=== PATIENT | female | born 1960 | race Caucasian/White ===

== ENCOUNTER 2017-01-22 12:42 | Inpatient (IN) ==
[2017-01-22] MEDS ORDERED: 0.9 % Sodium Chloride 1,000 ML IVC ONE (14:39)
[2017-01-22] MEDS ORDERED: Ondansetron 4 MG/2 ML VIAL IVP ONE ×2 (14:39→21:05)
--- NOTE | 2017-01-22 14:40 | Emergency Department Note ---
Disposition Clinical Impression: NSTEMI (non-ST elevated myocardial infarction), Sinus bradycardia Disposition: Admitted As Inpatient Condition: Good Referrals: NO,PCP [Primary Care Provider] - Forms: Work/School Release, ED Satisfaction Letter Weakness HPI - General Chief complaint: ED General Medical Stated complaint: Vomiting/hypertension/AMS Time Seen by Provider: 01/22/17 14:20 Source: patient Limitations: no limitations Nursing Notes Reviewed: Yes Vital Signs Reviewed: Yes - History of Present Illness Pt Subjective Complaint: generalized weakness/fatigue Onset (ago): day(s) (1) Duration: constant, gradually worsening Location: generalized Migration: none Pain Severity: none Pain Scale: 0 Improves with: none Worsens with: none Associated symptoms: Reports: nausea/vomiting. Denies: chest pain, confusion, dark stools, diaphoresis, fever/chills, headaches, loss of appetite, rash, shortness of breath, syncope - Related Data Home Medications Medication Instructions Recorded Confirmed No Known Home Drugs 01/22/17 01/22/17 Allergies Allergy/AdvReac Type Severity Reaction Status Date / Time No Known Allergies Allergy Verified 09/26/16 09:17 All systems ED: reviewed and negative except as stated. Constitutional: Reports: weakness Gastrointestinal: Reports: nausea Past Medical History - Past Medical History Source: patient, old records reviewed, obtained from family, nursing notes reviewed Medical history: Reports: hypertension Psychiatric history: Reports: no psych history STORE LEAD history: Reports: no STORE LEAD history - Social History Smoking Status: Current every day smoker Smokeless Tobacco Status: No Alcohol use: Reports: none Drug use: Reports: none Physical Exam - General Limitations: no limitations General appearance: alert - Head Head exam: atraumatic, normocephalic, normal inspection - Eye Eye exam: Present: normal appearance, PERRL, EOMI - Expanded Eye Exam Pupils: Left: reactive - ENT ENT exam: normal exam, normal oropharynx, mucous membranes moist - Expanded ENT Exam External ear exam: Present: normal external inspection Mouth exam: Present: normal external inspection Teeth exam: Present: normal inspection Throat exam: Present: normal inspection - Neck Neck exam: Present: normal inspection, full ROM, trachea midline - Chest Chest inspection: Present: normal inspection, symmetric chest wall rise - Respiratory Respiratory exam: Present: normal lung sounds bilaterally - Cardiovascular Cardiovascular exam: Present: bradycardia - Abdominal Exam Abdominal exam: Present: soft, Non-Tender. Absent: tenderness, distention, guarding, rebound, rigidity - Extremities Exam Extremities exam: Present: normal inspection, full ROM. Absent: tenderness, pedal edema - Expanded Upper Extremity Exam Shoulder exam: Present: normal inspection, full ROM Arm exam: Present: normal inspection, full ROM Elbow exam: Present: normal inspection, full ROM Forearm/Wrist exam: Present: normal inspection, full ROM Hand exam: Present: normal inspection, full ROM Vascular exam: Normal: capillary refill, radial pulse - Expanded Lower Extremity Exam Hip/Pelvis exam: Present: normal inspection, full ROM Upper leg exam: Present: normal inspection, full ROM Knee exam: Present: normal inspection, full ROM Lower leg exam: Present: normal inspection, full ROM Ankle exam: Present: normal inspection, full ROM Foot/toe exam: Present: normal inspection, full ROM Neurovascular/Tendon exam: Absent: motor deficit, sensory deficit, tendon deficit - Back Exam Back exam: Present: normal inspection, full ROM. Absent: tenderness - Neurological Exam Neurological exam: Present: alert, oriented X3 - Expanded Neurological Exam Patient oriented to: Present: person, place, time Coma Scale Eye Opening: Spontaneous Coma Scale Motor Response: Obeys Commands Coma Scale Verbal Response: Oriented Coma Scale Total: 15 - Psychiatric Psychiatric exam: Present: normal affect, normal mood - Skin Skin exam: Present: warm, dry, intact, normal color Course - Reevaluation(s) Reevaluation #1: patient hasn't had any chest pain, mild headache no other complaints, alert laughing and making jokes with staff and family Time: 15:45 - Consultations Consultation #1: dr. mclean consulted aware of troponin and bradycardia, admit to hospitalist ASA and heparin, consult cardiology no clinical laboratory assistant at this time Time: 15:40 Vital Signs Temperature 98.1 F 01/22/17 12:54 Pulse Rate 50 01/22/17 12:54 Respiratory Rate 18 01/22/17 12:54 Blood Pressure 145/74 01/22/17 12:54 O2 Sat by Pulse Oximetry 95 01/22/17 12:54 Temperature 98.1 F 01/22/17 12:54 Pulse Rate 44 01/22/17 15:24 Respiratory Rate 18 01/22/17 15:24 Blood Pressure 118/76 01/22/17 15:24 O2 Sat by Pulse Oximetry 100 01/22/17 15:24 Oxygen Delivery Oxygen Delivery Room Air Weakness - Differential Diagnosis Differential Diagnosis: Likely: acute myocardial infarction, hypoglycemia, rhabdomyolysis, sepsis/infection, thyroid/endocrine disorder - Medical Records Medical records reviewed: Yes I reviewed the patient's medical records. - Lab Data Lab results reviewed: Yes I reviewed the patient's lab results. Result diagrams: 01/22/17 14:51 01/22/17 14:51 Lab Results 01/22/17 01/22/17 01/22/17 Range/Units 14:51 14:51 14:51 WBC 10.9 (4.3-11.1) K/mcL RBC 4.67 (3.82-4.97) M/mcL Hgb 13.7 (11.5-15.4) g/dL Hct 42.1 (35.3-44.9) % MCV 90.1 (83.0-100.0) fL MCH 29.3 (28.0-33.3) pg MCHC 32.5 (31.6-35.5) g/dL RDW 13.9 (11.5-14.5) % Plt Count 282 (140-400) K/mcL MPV 10.0 (9.4-12.4) fL Immature Gran % 0.4 (0-4) % Seg Neutrophils % 86.6 % Lymphocytes % 9.1 % Monocytes % 3.7 % Eosinophils % 0.0 % Basophils % 0.2 % Neutrophils # 9.4 H (1.6-8.9) K/mcL Lymphocytes # 1.0 (0.6-4.6) K/mcL Monocytes # 0.4 (0.0-1.3) K/mcL Eosinophils # 0.0 (0.0-0.6) K/mcL Basophils # 0.0 (0.0-0.2) K/mcL PT 11.8 (9.4-12.1) Seconds INR 1.1 APTT 30.9 (26.0-36.0) Seconds Sodium 138 (136-145) mEq/L Potassium 3.8 (3.5-4.5) mEq/L Chloride 103 (98-109) mEq/L Carbon Dioxide 23 (19-29) mEq/L BUN 13 (7-20) mg/dL Creatinine 1.06 (0.57-1.11) mg/dL Est GFR ( Amer) > 60 (> 60) Est GFR (Non-Af Amer) 54 L (> 60) BUN/Creatinine Ratio 12 (6-26) Glucose 135 H (70-99) mg/dL Calculated Osmolality 288 (280-300) Lactic Acid (0.5-2.2) mmol/L Calcium 9.8 (8.6-10.8) mg/dL Total Bilirubin 0.4 (0.2-1.2) mg/dL Direct Bilirubin 0.2 (0.0-0.5) mg/dL Indirect Bilirubin 0.2 (0.0-1.2) mg/dL AST 57 H (5-34) Units/L ALT 24 (0-55) Units/L Alkaline Phosphatase 126 (38-126) Units/L Troponin I (0-0.03) ng/mL Serum Total Protein 7.8 (6.0-8.3) g/dL Albumin 3.7 (3.5-5.0) g/dL Globulin 4.1 H (2.4-3.5) g/dL Albumin/Globulin Ratio 0.9 L (1.1-2.2) Amylase 30 (25-125) Units/L Lipase 7 L (8-78) Units/L 01/22/17 01/22/17 Range/Units 14:51 14:51 WBC (4.3-11.1) K/mcL RBC (3.82-4.97) M/mcL Hgb (11.5-15.4) g/dL Hct (35.3-44.9) % MCV (83.0-100.0) fL MCH (28.0-33.3) pg MCHC (31.6-35.5) g/dL RDW (11.5-14.5) % Plt Count (140-400) K/mcL MPV (9.4-12.4) fL Immature Gran % (0-4) % Seg Neutrophils % % Lymphocytes % % Monocytes % % Eosinophils % % Basophils % % Neutrophils # (1.6-8.9) K/mcL Lymphocytes # (0.6-4.6) K/mcL Monocytes # (0.0-1.3) K/mcL Eosinophils # (0.0-0.6) K/mcL Basophils # (0.0-0.2) K/mcL PT (9.4-12.1) Seconds INR APTT (26.0-36.0) Seconds Sodium (136-145) mEq/L Potassium (3.5-4.5) mEq/L Chloride (98-109) mEq/L Carbon Dioxide (19-29) mEq/L BUN (7-20) mg/dL Creatinine (0.57-1.11) mg/dL Est GFR ( Amer) (> 60) Est GFR (Non-Af Amer) (> 60) BUN/Creatinine Ratio (6-26) Glucose (70-99) mg/dL Calculated Osmolality (280-300) Lactic Acid 1.7 (0.5-2.2) mmol/L Calcium (8.6-10.8) mg/dL Total Bilirubin (0.2-1.2) mg/dL Direct Bilirubin (0.0-0.5) mg/dL Indirect Bilirubin (0.0-1.2) mg/dL AST (5-34) Units/L ALT (0-55) Units/L Alkaline Phosphatase (38-126) Units/L Troponin I 2.28 H* (0-0.03) ng/mL Serum Total Protein (6.0-8.3) g/dL Albumin (3.5-5.0) g/dL Globulin (2.4-3.5) g/dL Albumin/Globulin Ratio (1.1-2.2) Amylase (25-125) Units/L Lipase (8-78) Units/L - Radiology Data Radiology results reviewed: Yes I reviewed the patient's radiology results. - EKG Data EKG attestation: Yes I reviewed and interpreted this EKG. EKG shows normal: sinus rhythm Rate: bradycardia (45) QTc: prolonged Interpretation: nonspecific ST-T wave changes Critical Care Time Critical Care Time: Yes Total Critical Care Time: 40 Attestation: Critical care performed: Time is exclusive of separately billable procedures. Time includes: direct patient care, patient reassessment, coordination of patient care, interpretation of data (laboratory data, radiology data, and respiratory data), review of patient's medical records, medical consultation and documentation of patient care. Procedures included in critical care time: Procedures excluded from critical care time:
[2017-01-22 15:05] LABS: Basophils % 0.2 %; Hematocrit 42.1 % (35.3-44.9); Hemoglobin 13.7 g/dL (11.5-15.4); Immature Granulocytes % 0.4 % (0-4); Lymphocytes % 9.1 %; Mean Corpuscular HGB Conc 32.5 g/dL (31.6-35.5); Mean Corpuscular Hemoglobin 29.3 pg (28.0-33.3); Mean Corpuscular Volume 90.1 fL (83.0-100.0); Monocytes # 0.4 K/mcL (0.0-1.3); Monocytes % 3.7 %; Neutrophils # 9.4 K/mcL (1.6-8.9); Platelet Count 282 K/mcL (140-400); Red Blood Count 4.67 M/mcL (3.82-4.97); Red Cell Distribution Width 13.9 % (11.5-14.5); Segmented Neutrophils % 86.6 %
[2017-01-22 15:13] LABS: INR 1.1; Prothrombin Time 11.8 Seconds (9.4-12.1)
[2017-01-22 15:15] LABS: Activated Partial Thrombo Time 30.9 Seconds (26.0-36.0)
[2017-01-22 15:18] LABS: Alanine Aminotransferase 24 Units/L (0-55); Albumin 3.7 g/dL (3.5-5.0); Albumin/Globulin Ratio 0.9 (1.1-2.2); Alkaline Phosphatase 126 Units/L (38-126); Amylase 30 Units/L (25-125); Aspartate Amino Transferase 57 Units/L (5-34); BUN/Creatinine Ratio 12 (6-26); Bilirubin,Direct 0.2 mg/dL (0.0-0.5); Bilirubin,Indirect 0.2 mg/dL (0.0-1.2); Bilirubin,Total 0.4 mg/dL (0.2-1.2); Blood Urea Nitrogen 13 mg/dL (7-20); Calcium 9.8 mg/dL (8.6-10.8); Carbon Dioxide 23 mEq/L (19-29); Chloride 103 mEq/L (98-109); Globulin 4.1 g/dL (2.4-3.5); Glucose 135 mg/dL (70-99); Lipase 7 Units/L (8-78); Osmolality,Calculated 288 (280-300); Potassium 3.8 mEq/L (3.5-4.5); Sodium 138 mEq/L (136-145); Total Protein 7.8 g/dL (6.0-8.3); eGFR For African Americans > 60 (> 60); eGFR For Non-African Americans 54 (> 60)
[2017-01-22] MEDS ORDERED: Aspirin 81 MG TAB.CHEW PO ONE (15:27)
[2017-01-22] MEDS ORDERED: *HR* Heparin 5,000 UNIT/ML VIAL IVP PRN ×2 (15:33)
[2017-01-22] MEDS ORDERED: *HR* Heparin 5,000 UNIT/ML VIAL IVP ONE (15:33)
[2017-01-22] MEDS ORDERED: Heparin 25,000 UNIT/500 ML D5W 25,000 UNIT/500 ML MLS IVC SCH (15:45)
[2017-01-22] MEDS ORDERED: Naloxone 0.4 MG/ML INJ IVP PRN (17:12)
[2017-01-22] MEDS ORDERED: Acetaminophen 325 MG TABLET PO PRN (17:12)
--- NOTE | 2017-01-22 18:33 | Internal Med History&Physical ---
Date of Encounter: 01/22/17 Time of Encounter: 18:29 Assessment and Plan (1) NSTEMI (non-ST elevated myocardial infarction) Current visit: Yes Status: Acute Patient presented with complaints of nausea, vomiting, fatigue and headache. Troponin elevated to 2.28. Patient was bradycardic with HR 40s-50s. EKG did not show ischemic changes. Cardiology/Dr. Hooker consulted. Heparin drip aspirin 325mg PO given, continue with 81mg daily serial troponins continuous court monitor echocardiogram ordered NPO after midnight for likely LHC tomorrow. (2) Sinus bradycardia Current visit: Yes Status: Acute Patient with HR in the 42-50s on presentation, symptoms of nausea, vomiting, fatigue, occasional lightheadedness. On my assessment heart rate improved to low 60s. Cardiology (Dr. Hooker) consulted. Continuous court monitor serial troponins. (3) Hypertension Current visit: Yes Status: Acute Patient's daughter reports patient not compliant with taking hypertension medications at home, and reports her blood pressure can run as high as 200/100. Patients BP running 130s-140s today. Hydralazine 10g IVP PRN for SBP > 160 or DBP > 100. Qualifiers: Hypertension type: essential hypertension Qualified Code(s): I10 - Essential (primary) hypertension (4) Smoker Current visit: Yes Status: Acute Patient smokes 2PPD. Encouraged her to consider quitting. Smoking cessation education ordered. Nicotine patch ordered. (5) DVT prophylaxis Current visit: Yes Status: Acute anti-embolic stockings. Patient on heparin drip for NSTEMI, additional pharmacologic prophylaxis contraindicated. Internal Medicine - H&P: HPI Chief complaint: nausea, vomiting, fatigue Admitted From: Emergency Dept Plans for Post Hospital Care: Home History of present illness: Ms. Lara is a 56 year old female with hypertension, presented to the emergency department today with nausea vomiting and fatigue. She reports that nausea and vomiting started last night around midnight, she is noticed significant fatigue , and mild headache as well. She denies any chest pain, palpitations, shortness of breath, but reports some lightheadedness. She reports chills, denies any sweats, fever, diarrhea. Evaluation in the emergency department revealed a troponin of 2.28. EKG showed no ischemic changes. Patient was also bradycardic with heart rate in the 40s to 50s. Dr. Hooker was consult dated the patient was initiated on heparin drip. On exam, patient alert and oriented , in no acute distress. Continues to deny any active chest pain. Lungs are clear bilaterally to auscultation heart has regular rhythm and rate is 60s. Past Med Surg Social Fam HX - Past Medical History Medical history: hypertension Psychiatric history: no psych history - Past Surgical History Surgical History: other (gynecologic surgery) - Social History Smoking Status: Current every day smoker (80 pack year history) Packs per day: 2 Smokeless Tobacco Status: No Alcohol use: none Drug use: none Internal Medicine - H&P: Meds No Known Home Drugs 01/22/17 [History] Allergies No Known Allergies Allergy (Verified 09/26/16 09:17) All Systems PM: A 10-system review of systems was performed and is negative for pertinent findings except as documented above in the HPI. - Constitutional Constitutional: chills, fatigue, no fever(s), no night sweats - EENT Eyes: change in vision, no discharge, no pain, no photophobia Ears: no ear discharge, no ear pain, no tinnitus Nose, mouth and throat: no dysphagia, no nasal discharge, no neck pain, no sore throat - Cardiovascular Cardiovascular ROS IM: lightheadedness, no chest pain, no diaphoresis, no dyspnea, no palpitations, no syncope - Respiratory Respiratory: no cough, no dyspnea, no wheezing, no excessive phlegm production - Gastrointestinal Gastrointestinal: nausea, vomiting, no abdominal pain, no diarrhea, no hematemesis, no hematochezia, no melena - Genitourinary Genitourinary: no change in urinary stream, no dysuria, no flank pain, no hematuria - Musculoskeletal Musculoskeletal ROS IM: no numbness, no tingling - Integumentary Integumentary IM: no rash, no unusual bruising - Neurological Neurological ROS: no confusion, no convulsions, no focal weakness, no numbness, no tingling, no tremor(s) - Hematologic/Lymphatic Hematologic/Lymphatic: no easy bruising - Constitutional Vitals: Temp Pulse Resp BP Pulse Ox 98.4 F 65 18 145/88 90 01/22/17 17:19 01/22/17 17:19 01/22/17 17:19 01/22/17 17:19 01/22/17 17:39 General appearance: Present: A&O X 3, pleasant, no acute distress, obese - Head Head exam: Present: atraumatic, normocephalic - Eye Eye exam: Present: PERRL, conjuntiva pink, sclera anicteric Pupils: Present: PERRL - Neck Neck exam general surgery: Present: supple, trachea midline. Absent: lymphadenopathy - Respiratory Respiratory exam: Present: CTAB. Absent: accessory muscle use, rales, rhonchi, wheezes - Cardiovascular Cardiovascular exam: Present: RRR, +S1, +S2. Absent: diastolic murmur, gallop, rubs, systolic murmur - GI/Abdominal GI/Abdominal exam: Present: normal bowel sounds, soft, no peritoneal signs. Absent: distended, tenderness - Extremities Exam Extremities exam: Present: warm, radial pulses palpable and symetrical. Absent : calf tenderness, cyanotic, pedal edema - Neurological Exam Neurological exam: Present: CN II-XII intact, oriented X3, no focal deficits. Absent: facial droop, speech deficit - Skin Skin exam: Present: dry, intact Internal Med - H&P Results - Labs CBC & Chem 7: 01/22/17 14:51 01/22/17 14:51 Labs: All Lab Results (24 Hours) 01/22/17 01/22/17 01/22/17 Range/Units 14:51 14:51 14:51 WBC 10.9 (4.3-11.1) K/mcL RBC 4.67 (3.82-4.97) M/mcL Hgb 13.7 (11.5-15.4) g/dL Hct 42.1 (35.3-44.9) % MCV 90.1 (83.0-100.0) fL MCH 29.3 (28.0-33.3) pg MCHC 32.5 (31.6-35.5) g/dL RDW 13.9 (11.5-14.5) % Plt Count 282 (140-400) K/mcL MPV 10.0 (9.4-12.4) fL Immature Gran % 0.4 (0-4) % Seg Neutrophils % 86.6 % Lymphocytes % 9.1 % Monocytes % 3.7 % Eosinophils % 0.0 % Basophils % 0.2 % Neutrophils # 9.4 H (1.6-8.9) K/mcL Lymphocytes # 1.0 (0.6-4.6) K/mcL Monocytes # 0.4 (0.0-1.3) K/mcL Eosinophils # 0.0 (0.0-0.6) K/mcL Basophils # 0.0 (0.0-0.2) K/mcL PT 11.8 (9.4-12.1) Seconds INR 1.1 APTT 30.9 (26.0-36.0) Seconds Sodium 138 (136-145) mEq/L Potassium 3.8 (3.5-4.5) mEq/L Chloride 103 (98-109) mEq/L Carbon Dioxide 23 (19-29) mEq/L BUN 13 (7-20) mg/dL Creatinine 1.06 (0.57-1.11) mg/dL Est GFR ( Amer) > 60 (> 60) Est GFR (Non-Af Amer) 54 L (> 60) BUN/Creatinine Ratio 12 (6-26) Glucose 135 H (70-99) mg/dL Calculated Osmolality 288 (280-300) Lactic Acid (0.5-2.2) mmol/L Calcium 9.8 (8.6-10.8) mg/dL Total Bilirubin 0.4 (0.2-1.2) mg/dL Direct Bilirubin 0.2 (0.0-0.5) mg/dL Indirect Bilirubin 0.2 (0.0-1.2) mg/dL AST 57 H (5-34) Units/L ALT 24 (0-55) Units/L Alkaline Phosphatase 126 (38-126) Units/L Troponin I (0-0.03) ng/mL Serum Total Protein 7.8 (6.0-8.3) g/dL Albumin 3.7 (3.5-5.0) g/dL Globulin 4.1 H (2.4-3.5) g/dL Albumin/Globulin Ratio 0.9 L (1.1-2.2) Amylase 30 (25-125) Units/L Lipase 7 L (8-78) Units/L 01/22/17 01/22/17 Range/Units 14:51 14:51 WBC (4.3-11.1) K/mcL RBC (3.82-4.97) M/mcL Hgb (11.5-15.4) g/dL Hct (35.3-44.9) % MCV (83.0-100.0) fL MCH (28.0-33.3) pg MCHC (31.6-35.5) g/dL RDW (11.5-14.5) % Plt Count (140-400) K/mcL MPV (9.4-12.4) fL Immature Gran % (0-4) % Seg Neutrophils % % Lymphocytes % % Monocytes % % Eosinophils % % Basophils % % Neutrophils # (1.6-8.9) K/mcL Lymphocytes # (0.6-4.6) K/mcL Monocytes # (0.0-1.3) K/mcL Eosinophils # (0.0-0.6) K/mcL Basophils # (0.0-0.2) K/mcL PT (9.4-12.1) Seconds INR APTT (26.0-36.0) Seconds Sodium (136-145) mEq/L Potassium (3.5-4.5) mEq/L Chloride (98-109) mEq/L Carbon Dioxide (19-29) mEq/L BUN (7-20) mg/dL Creatinine (0.57-1.11) mg/dL Est GFR ( Amer) (> 60) Est GFR (Non-Af Amer) (> 60) BUN/Creatinine Ratio (6-26) Glucose (70-99) mg/dL Calculated Osmolality (280-300) Lactic Acid 1.7 (0.5-2.2) mmol/L Calcium (8.6-10.8) mg/dL Total Bilirubin (0.2-1.2) mg/dL Direct Bilirubin (0.0-0.5) mg/dL Indirect Bilirubin (0.0-1.2) mg/dL AST (5-34) Units/L ALT (0-55) Units/L Alkaline Phosphatase (38-126) Units/L Troponin I 2.28 H* (0-0.03) ng/mL Serum Total Protein (6.0-8.3) g/dL Albumin (3.5-5.0) g/dL Globulin (2.4-3.5) g/dL Albumin/Globulin Ratio (1.1-2.2) Amylase (25-125) Units/L Lipase (8-78) Units/L
[2017-01-22] MEDS ORDERED: *HR* Atropine Sulfate 1 MG/10 ML SYRINGE ONE (21:10)
[2017-01-22] MEDS ORDERED: *HR* Ticagrelor 90 MG TABLET PO ONE (21:15)
[2017-01-22] MEDS: Nicotine 21 MG PATCH.TD24 TD SCH (21:29)
[2017-01-22] MEDS ORDERED: *HR* Atropine Sulfate 1 MG/10 ML SYRINGE IVP ONE (21:34)
--- NOTE | 2017-01-22 21:51 | Pre-Sedation Evaluation ---
Pre-sedation evaluation - Pre-sedation checklist Date of procedure: 01/22/17 Procedure: cardiac cath Recent Vitals: Last Vital Signs Temp 98.2 F 01/22/17 19:15 Pulse 40 01/22/17 19:15 Resp 18 01/22/17 19:15 BP 116/61 01/22/17 19:15 Pulse Ox 95 01/22/17 20:40 H&P (including ROS) documented in medical record: Yes Previous reaction to sedatives/anesthetics: No Dietary Status: NPO after Midnight Dentition: dentures removed ASA Classification *see protocol: CLASS II-Mild systemic disease Plan of Care: Pt appropriate candidate for procedure/moderate/conscious sedation , Risks/benefits of procedure/sedation discussed w/ patient/family
[2017-01-22] MEDS ORDERED: Heparin 1,000 UNITS/500 mL NS 500 ML ONE (23:06)
[2017-01-22] MEDS ORDERED: Ondansetron 4 MG/2 ML VIAL ONE (23:14)
[2017-01-22] MEDS ORDERED: *HR* HYDROcodone/Acet 5/325 mg TABLET PO PRN (23:56)
[2017-01-22] MEDS ORDERED: Nitroglycerin 0.4 MG TAB.SUBL SL PRN (23:56)
[2017-01-22] MEDS ORDERED: Ondansetron 4 MG/2 ML VIAL IVP PRN (23:56)
[2017-01-22] MEDS ORDERED: *HR* Morphine 2 MG/ML SYRINGE IVP PRN (23:56)
--- NOTE | 2017-01-23 00:02 | Event Note ---
Date of Encounter: 01/22/17 Time of Encounter: 11:59 - Cardiology Event Note Inferior current of injury - acute IA with bradycardia in the 30s-40s. Ostial RCA 99%. Prox mid RCA 90%. Mid distal RCA 99%. Complex PCI. Ostial and prox mid lesion successfully stented x 2 EVELIO. Distal lesion s/p PTCA with 80% residual stenosis, unable to pass stent despite guide extension. SARAH 3 flow. Temp pacer placed for bradycardia, will maintain leave in place overnight. If symptomatic, return to lab for PCI of distal RCA.
[2017-01-23] MEDS ORDERED: *HR* Midazolam HCl 2 MG/2 ML VIAL ONE (00:20)
[2017-01-23] MEDS ORDERED: *HR* Atropine Sulfate 1 MG/10 ML SYRINGE ONE (00:21)
[2017-01-23] MEDS ORDERED: Nitroglycerin 1,000 MCG/10 ML VIAL IV ONE (00:21)
[2017-01-23] MEDS ORDERED: Heparin 1,000 UNITS/500 mL NS 500 ML ONE (00:21)
[2017-01-23] MEDS ORDERED: *HR* FentaNYL (PF) 100 MCG/2 ML VIAL ONE (00:21)
[2017-01-23] MEDS ORDERED: *HR* Heparin 10,000 UNIT/10 ML VIAL ONE (00:21)
[2017-01-23] MEDS ORDERED: 0.9 % Sodium Chloride 1,000 ML ONE (00:21)
[2017-01-23] MEDS ORDERED: Verapamil 5 MG/2 ML VIAL ONE (00:21)
--- NOTE | 2017-01-23 00:27 | Invasive Diagnostic Lab Proc ---
Name: Lizeth Lara Date of Study: 01/22/2017 Date: 1960 Ht: 61.8in Medical Record#: [id number] Age: 56 Wt: 155.21lb Gender: Female BSA: 1.71 Order #: [id number] BMI: 28.56 Physicians Procedure Physician: Viral Watkins MD, [facility] Referring MD: Referring MD: Staff Name Position Time In Leigh Suarez RT (R) Scrub 10:11 PM Marine Ramirez RN Space Operations Officer 10:11 PM Jennifer Castrejon RN Monitor 10:11 PM Indications Indication STEMI Procedures Performed Procedure PRQ CARD REVASC WY 1 VSL L HRT ARTERY/VENTRICLE ANGIO INS/RPL TEMP PM LEAD/CATH;SNGL Pre-Procedure Checklist Informed consent is complete signed and on chart. H\\T\\P is on chart. ID band is on and ID verified with patient. Patient NPO for procedure The procedure was described for the patient and questions were answered. Blood Pressure: 157/69 ECG is on chart. Rhythm: Sinus Bradycardia Plan of Care Patient will tolerate the procedure without complications. Adequate level of comfort will be maintained. Hemodynamics will remain stable Patient will recover from procedure without complications. Respiratory function will be maintained. Cardiac rhythm will remain stable. Patient temperature will be maintained. Patient and/or family have verbalized understanding of the procedure. Patient Education Intravenous Access Time IV Size Location DC'd Fluid/Drip Rate Units RN 09:58 PM 18g 1 1/4" Patent On Arrival Rt Antecubital 0.9NaCl 25 ml/hr Marine Ramirez RN Allergies NKA Vital Signs Time BP (mmHg) HR (bpm) O2 Sat. RR (bpm) LOC 10:12 PM / % 5 = Fully awake and oriented or at pre-proc level 10:12 PM / % 5 = Fully awake and oriented or at pre-proc level 10:17 PM / % 5 = Fully awake and oriented or at pre-proc level 10:57 PM / % 4 = Oriented but drowsy 11:12 PM / % 4 = Oriented but drowsy 11:12 PM / % 5 = Fully awake and oriented or at pre-proc level 10:05 PM 157 / 69 142 96 % 19 10:08 PM 148 / 70 35 95 % 12 10:10 PM 143 / 72 36 100 % 29 10:15 PM 130 / 74 49 96 % 20 10:20 PM 119 / 70 44 98 % 16 10:25 PM 118 / 65 43 99 % 20 10:30 PM 121 / 61 44 100 % 20 10:33 PM 106 / 56 42 100 % 21 10:35 PM 86 / 36 35 100 % 16 10:37 PM 93 / 56 46 100 % 20 10:43 PM 117 / 54 89 98 % 16 10:47 PM 215 / 139 54 98 % 20 10:52 PM 138 / 84 67 100 % 12 11:49 PM 178 / 91 76 100 % 14 11:53 PM 166 / 89 55 100 % 23 11:57 PM 173 / 91 56 100 % 20 10:57 PM 136 / 67 59 100 % 20 11:02 PM 138 / 91 59 100 % 18 11:08 PM 152 / 71 59 100 % 18 11:12 PM 134 / 85 70 100 % 16 11:18 PM 157 / 86 65 100 % 16 11:22 PM 144 / 93 119 100 % 25 11:27 PM 136 / 81 64 100 % 13 11:32 PM 141 / 82 66 100 % 15 11:38 PM 144 / 86 61 100 % 13 11:44 PM 153 / 88 61 100 % 18 Procedural Medications Time Medication Dose Units Method Given By 10:11 PM Oxygen 4 L/min nasal cannula AshleyMarine blanco RN 10:12 PM Versed 2 mg Intravenous AshleyMarine RN 10:12 PM Fentanyl 50 mcg Intravenous AshleyMarine blanco RN 10:12 PM Lidocaine 2% 20 ml Subcutaneous Viral Watkins MD, [facility] 10:30 PM Heparin 2000 units Intravenous AshleyMarine blanco RN 10:31 PM Dopamine 5 mcg/kg/min Intravenous AshleyMarine RN 10:36 PM Dopamine 10 mcg/kg/min Intravenous AshleyMarine RN 10:46 PM Dopamine 5 mcg/kg/min Intravenous AshleyMarine RN 10:48 PM Dopamine 0 mcg/kg/min Intravenous AshleyMarine RN 11:14 PM Zofran 8 mg Intravenous Ashley, Marine OJEDA 11:16 PM Heparin 2000 units Intravenous FullertonMarine RN 11:59 PM Heparin 2000 units Intravenous AshleyMarine RN ASA Classification: CLASS II- Mild systemic disease (i.e. well-controlled diabetes, hypertension, asthma, cigarette smoking) Sabine Score Preprocedure Postprocedure Activity 2- Moves 4 extremities sustained head lift Activity 2- Moves 4 extremities sustained head lift Circulation 2- SBP +/= 20 points of pre-anesthetic level Circulation 2- SBP +/= 20 points of pre-anesthetic level Consciousness 2- Awake and alert oriented x 3 Consciousness 2- Awake and alert oriented x 3 O2 Saturation 2- Able to maintain O2 satruation of 92% on room air O2 Saturation 2- Able to maintain O2 satruation of 92% on room air Respiratory 2- Able to deep breathe and cough well Respiratory 2- Able to deep breathe and cough well Total Score 10 Total Score 10 Contrast Agent: Isovue Diagnostic Contrast: 261 ml Total Contrast: 261 ml Fluoro Dose: 2725 mGy Activated Clotting Time Time Seconds to Clot 11:16 PM 227 Procedure Log Time Note Enter By 10:05 PM Vitals capture started with the following parameters, Patient=Adult, Interval=5 min, Initial Jixqdxvu=545 mmHg, Deflation Rate=5 mmHg, Cuff placed on Right Arm 10:05 PM CathStat 10:05 PM JK=230 bpm, QEDQ=582/69 mmhg, SpO2=96.0 %, Resp=19 B/min, Comment=SB 10:07 PM NIBP STAT measurement started. 10:08 PM HR=35 bpm, XORV=695/70 mmhg, SpO2=95 %, Resp=12 B/min 10:10 PM Recorded ECG: HR=35 Condition=Condition 1 10:10 PM HR=36 bpm, JCFY=253/72 mmhg, DkZ1=184 %, Resp=29 B/min 10:11 PM Pt arrived to matlab developer 2 at 22:11 ejohnson 10:11 PM Leigh Suarez RT (R) Position: Scrub Time in: 22:11 ejohnson 10:11 PM Marine Ramirez RN Position: Space Operations Officer Time in: 22:11 ejohnson 10:11 PM Jennifer Castrejon RN Position: Monitor Time in: 22:11 ejohnson 10:11 PM Patient charges- Angio tray pack, Navilyst 3mm J, Pulse Oximetry and ACIST tubing and transducer ejohnson 10:11 PM Case Delayed No ejohnson 10:11 PM Hair removed from procedure site in holding area using clippers. Bilateral groin prepped with Chloraprep by Marine Ramirez RN, safety strap applied then patient was draped. Skin intact. ejohnson 10:11 PM Physician arrived 22:11 ejohnson 10:11 PM ASA Class CLASS II- Mild systemic disease (i.e. well-controlled diabetes, hypertension, asthma, cigarette smoking) ejohnson 10:11 PM Yvon and tima completed ejohnson 10:11 PM Sign in performed according to hospital policy. ejohnson 10:11 PM Procedure start 22:11 ejohnson 10:12 PM Time: 22:11 Oxygen on at 4 L/min per nasal cannula by Marine Ramirez RN ejohnson 10:12 PM Time: 22:12 Versed 2 mg Intravenous Given by Marine Ramirez RN ejohnson 10:12 PM Time: 22:12 Fentanyl 50 mcg Intravenous Given by Marine Ramirez RN ejohnsbowen 10:12 PM Time: 22:12 Patient comfortable and pain free: Yes ejohnson 10:12 PM Time: 22:12LOC: 5 = Fully awake and oriented or at pre-proc level ejohnson 10:12 PM Pressure channel 1 zeroed. 10:12 PM Time: 22:12 20 ml Lidocaine 2% to right groin Subcutaneous Given by Viral Watkins MD, [facility] ejohnson 10:13 PM Access obtained by percutaneous puncture. 6Fr 10cm Terumo [place] sheath placed in right Femoral artery. [id number] ejohnson 10:13 PM 6Fr JR 4 Runway guide catheter was used to cannulate the PCI vessel successfully. reused? No ejohnson 10:14 PM Heparin gtt ejohnson 10:14 PM Recorded Pressure: LV, ZR=146, Condition=Condition 1 (Left Ventricle) LV 127/22/41 10:14 PM Catheter selectively placed in left ventricle ejohnson 10:14 PM Bolus angiogram of left Ventricle complete: 10 ml/sec for a total of 30 mls ejohnson 10:15 PM Recorded Pressure: LV, Ao, HR=63, Condition=Condition 1 (Left Ventricle) LV 125/13/24, (Aorta) Ao 109/57/79 10:15 PM HR=49 bpm, JAHA=777/74 mmhg, SpO2=96.0 %, Resp=20 B/min, Comment=SB 10:16 PM Guide catheter removed intact. ejohnson 10:16 PM 6Fr 3DRC Cordis guide catheter was used to cannulate the PCI vessel successfully. reused? No ejohnson 10:17 PM Time: 22:12 Patient comfortable and pain free: Yes ejohnson 10:17 PM Time: 22:12LOC: 5 = Fully awake and oriented or at pre-proc level ejohnson 10:18 PM RCA angiography performed in multiple views. ejohnson 10:18 PM Recorded Pressure: Ao, HR=42, Condition=Condition 1 (Aorta) Ao 126/59/85 10:19 PM Guide catheter removed intact. ejohnson 10:19 PM 5Fr FL 4 catheter inserted over the wire DNC ejohnson 10:19 PM Lesion found in Proximal RCA. Pre Stenosis: 95 Pre SARAH Flow: 2: Partial Flow/Perfusion (> 1 but < 3) ejohnson 10:19 PM Lesion found in Mid RCA. Pre Stenosis: 99 Pre SARAH Flow: 2: Partial Flow/Perfusion (> 1 but < 3) ejohnson 10:19 PM Recorded Pressure: Ao, HR=48, Condition=Condition 1 (Aorta) Ao 106/56/76 10:19 PM LCA angiography performed in multiple views. ejohnson 10:20 PM HR=44 bpm, VRYA=428/70 mmhg, SpO2=98.0 %, Resp=16 B/min, Comment=SB 10:21 PM Catheter removed ejohnson 10:21 PM Lesion found in Proximal LAD. Pre Stenosis: 20 Pre SARAH Flow: 3: Complete and Brisk Flow/Perfusion ejohnson 10:22 PM Lesion found in Distal RCA. Pre Stenosis: 99 Pre ejohnson 10:22 PM Right Coronary, Right Posterior Descending Arteries with Right Posterolateral and Acute Marginal branches with 99 % stenosis. ejohnson 10:23 PM Lesion found in Proximal LAD. Pre Stenosis: 20 Pre SARAH Flow: 3: Complete and Brisk Flow/Perfusion ejohnson 10:23 PM Lesion found in Mid LAD. Pre Stenosis: 50 Pre SARAH Flow: 3: Complete and Brisk Flow/Perfusion ejohnson 10:23 PM Lesion found in Mid Circumflex. Pre Stenosis: 70 Pre SARAH Flow: 3: Complete and Brisk Flow/Perfusion ejohnson 10:24 PM Proximal Left Anterior Descending Coronary Artery with 50% stenosis. ejohnson 10:24 PM Circumflex, Obtuse Marginal, Left Posterior Descending, and Left Posterolateral Coronary Arteries with 70 % stenosis. ejohnson 10:25 PM HR=43 bpm, QQKS=159/65 mmhg, SpO2=99.0 %, Resp=20 B/min, Comment=SB 10:26 PM 6Fr 3DRC Cordis guide catheter was used to cannulate the PCI vessel successfully. reused? Yes ejohnson 10:27 PM .014 PT Graphix 180cm guide wire across target lesion- successful. reused? No ejohnson 10:27 PM Inflation device was opened. ejohnson 10:28 PM 2.0 mm x 20 mm Emerge Monorail balloon across target lesion- successful. reused? No ejohnson 10:30 PM Time: 22:30 Heparin 2000 units Intravenous Given by Marine Ramirez RN ejohnson 10:30 PM Time: 22:17 Patient comfortable and pain free: No ejohnson 10:30 PM Time: 22:17LOC: 5 = Fully awake and oriented or at pre-proc level ejohnson 10:30 PM HR=44 bpm, ZENL=929/61 mmhg, DgL4=242.0 %, Resp=20 B/min, Comment=SB 10:30 PM Recorded Pressure: Ao, HR=44, Condition=Condition 1 (Aorta) Ao 107/59/78 10:31 PM Time: 22:31 Dopamine 5 mcg/kg/min Intravenous Given by Marine Ramirez RN Huitron pump ejohnson 10:32 PM NIBP STAT measurement started. 10:33 PM HR=42 bpm, AVMM=119/56 mmhg, HuE8=192 %, Resp=21 B/min 10:34 PM Balloon catheter removed intact. ejohnson 10:34 PM Guide wire removed intact. ejohnson 10:35 PM .014 [place] 190cm guide wire across target lesion- successful. reused? No ejohnson 10:35 PM HR=35 bpm, NIBP=86/36 mmhg, RuK7=137.0 %, Resp=16 B/min, Comment=SB 10:36 PM NIBP STAT measurement started. 10:37 PM Guide wire removed intact. ejohnson 10:37 PM Time: 22:36 Dopamine 10 mcg/kg/min Intravenous Given by [place], Marine RN Huitron pump ejohnson 10:37 PM HR=46 bpm, NIBP=93/56 mmhg, QpT3=379 %, Resp=20 B/min 10:38 PM Access obtained by percutaneous puncture. 7Fr 11cm Cordis Cynthia sheath placed in right Femoral vein. [id number] ejohnson 10:40 PM PstProc:Bard Bipolar Pacing Catheter Temp pacer inserted into right femoral vein ejohnson 10:41 PM PstProc: Temp pacer turned on, rate 60 ppm, mA 10, sensitivity 2 ejohnson 10:41 PM Recorded Pressure: Ao, HR=71, Condition=Condition 1 (Aorta) Ao 171/79/115 10:41 PM Vitals capture stopped. 10:42 PM Vitals capture started with the following parameters, Patient=Adult, Interval=5 min, Initial Klkncbcq=381 mmHg, Deflation Rate=5 mmHg, Cuff placed on Right Arm 10:43 PM .014 [place] 190cm guide wire across target lesion- successful. reused? Yes ejohnson 10:43 PM HR=89 bpm, ALIZ=086/54 mmhg, SpO2=98.0 %, Resp=16 B/min, Comment=SB 10:45 PM NIBP STAT measurement started. 10:46 PM Time: 22:46 Dopamine 5 mcg/kg/min Intravenous Given by Marine Ramirez RN Huitron pump ejohnson 10:47 PM HR=54 bpm, YHMH=917/139 mmhg, SpO2=98.0 %, Resp=20 B/min, Comment=SB 10:49 PM Time: 22:48 Dopamine 0 mcg/kg/min Intravenous Given by Marine Ramirez RN Huitron pump ejohnson 10:50 PM Guide wire removed intact. ejohnson 10:51 PM .014 [place] 190cm guide wire across target lesion- successful. reused? No ejohnson 10:51 PM Recorded Pressure: Ao, HR=61, Condition=Condition 1 (Aorta) Ao 115/62/84 10:52 PM HR=67 bpm, HJQD=755/84 mmhg, TfW1=930.0 %, Resp=12 B/min, Comment=SB 10:54 PM Guide wire removed intact. ejohnson 10:54 PM .014 PT Graphix 180cm guide wire across target lesion- successful. reused? Yes ejohnson 10:57 PM Guide wire removed intact. ejohnson 10:57 PM .014 [place] 180cm guide wire across target lesion- successful. reused? No ejohnson 10:57 PM HR=59 bpm, UEQY=765/67 mmhg, YjM7=824.0 %, Resp=20 B/min, Comment=SB 10:57 PM Time: 22:57 Patient comfortable and pain free: Yes ejohnson 10:57 PM Time: 22:57LOC: 4 = Oriented but drowsy ejohnson 11:02 PM 2.0 mm x 20 mm Emerge Monorail balloon across target lesion- successful. reused? Yes ejohnson 11:02 PM HR=59 bpm, ECPJ=454/91 mmhg, UwX1=643.0 %, Resp=18 B/min, Comment=SR NS OCC v pACED 11:04 PM Balloon inflated @ 8 bj for 14 seconds ejohnson 11:04 PM Balloon inflated @ 10 bj for 16 seconds ejohnson 11:05 PM Balloon catheter removed intact. ejohnson 11:05 PM 2.5mm x 20mm Synergy drug-eluting stent across target lesion- successful Lot #[id number] ejohnson 11:08 PM HR=59 bpm, RSRG=975/71 mmhg, SxZ4=391.0 %, Resp=18 B/min, Comment=SR NS OCC v pACED 11:10 PM Stent deployed @ 18 bj for 38 seconds ejohnson 11:11 PM Stent delivery system removed intact. ejohnson 11:12 PM Time: 23:12 Patient comfortable and pain free: Yes ejohnson 11:12 PM Time: 23:12LOC: 4 = Oriented but drowsy ejohnson 11:12 PM 2.5 mm x 15mm NC Trek Rx balloon across target lesion- successful. reused? No ejohnson 11:12 PM HR=70 bpm, QKIE=991/85 mmhg, XaO7=300.0 %, Resp=16 B/min, Comment=SR NS OCC v pACED 11:13 PM Balloon inflated @ 18 bj for 21 seconds ejohnson 11:14 PM Time: 23:14 Zofran 8 mg Intravenous Given by Marine Ramirez RN ejohnson 11:16 PM At 23:16 the ACT was 227 seconds. ejohnson 11:16 PM Time: 23:16 Heparin 2000 units Intravenous Given by Marine Ramirez RN ejohnson 11:16 PM Balloon inflated @ 12 bj for 20 seconds ejohnson 11:17 PM Guide wire removed intact. ejohnson 11:17 PM 2.0 mm x 12 mm Emerge Monorail balloon across target lesion- successful. reused? No ejohnson 11:18 PM HR=65 bpm, HEHP=480/86 mmhg, UgA7=808.0 %, Resp=16 B/min, Comment=SR OCC v pACED 11:19 PM Balloon inflated @ 6 bj for 10 seconds ejohnson 11:20 PM Balloon inflated @ 8 bj for 10 seconds ejohnson 11:20 PM Balloon catheter removed intact. ejohnson 11:21 PM Time: 23:12 Patient comfortable and pain free: Yes ejohnson 11:21 PM Time: 23:12LOC: 5 = Fully awake and oriented or at pre-proc level ejohnson 11:21 PM 2.25mm x 16mm Synergy drug-eluting stent across target lesion- successful Lot #[id number] ejohnson 11:22 PM OR=794 bpm, JIRB=323/93 mmhg, LiY3=059.0 %, Resp=25 B/min, Comment=SR OCC V-PACED 11:24 PM Stent removed intact. ejohnson 11:25 PM 2.5mm x 24mm Synergy drug-eluting stent across target lesion- successful Lot #[id number] ejohnson 11:26 PM Stent deployed @ 12 bj for 33 seconds ejohnson 11:27 PM HR=64 bpm, IINH=752/81 mmhg, SgI8=299.0 %, Resp=13 B/min, Comment=SR OCC V-PACED 11:30 PM 2.0 mm x 12mm NC Trek Rx balloon across target lesion- successful. reused? No ejohnson 11:31 PM Balloon inflated @ 12 bj for 9 seconds ejohnson 11:31 PM Balloon inflated @ 18 bj for 20 seconds ejohnson 11:32 PM HR=66 bpm, KRTU=396/82 mmhg, ZzT5=672.0 %, Resp=15 B/min, Comment=SR OCC V-PACED 11:33 PM Balloon catheter removed intact. ejohnson 11:33 PM 3.0 mm x 8mm NC Trek Rx balloon across target lesion- successful. reused? No ejohnson 11:34 PM Balloon inflated @ 18 bj for 13 seconds ejohnson 11:34 PM Balloon inflated @ 12 bj for 9 seconds ejohnson 11:35 PM Balloon inflated @ 16 bj for 15 seconds ejohnson 11:35 PM Balloon inflated @ 14 bj for 15 seconds ejohnson 11:36 PM Balloon catheter removed intact. ejohnson 11:36 PM 2.25 X 16 synergy stent reinserted ejohnson 11:37 PM Stent removed intact. ejohnson 11:38 PM HR=61 bpm, LUOJ=959/86 mmhg, RtK2=356.0 %, Resp=13 B/min, Comment=SR OCC V-PACED 11:39 PM 6Fr Guidezilla advanced ejohnson 11:40 PM 4.0 mm x 8mm NC Emerge balloon across target lesion- successful. reused? No ejohnson 11:41 PM Balloon inflated @ 16 bj for 14 seconds ejohnson 11:42 PM Balloon catheter removed intact. ejohnson 11:44 PM HR=61 bpm, YWYA=626/88 mmhg, LbT5=104.0 %, Resp=18 B/min, Comment=SR OCC V-PACED 11:44 PM 2.25 x 16 Synergy stent reinserted ejohnson 11:45 PM Stent removed intact. ejohnson 11:45 PM Guide wire removed intact. ejohnson 11:45 PM Guidezilla removed ejohnson 11:47 PM .014 ChoICE PT Extra Support 182cm guide wire across target lesion- successful. reused? No ejohnson 11:49 PM HR=76 bpm, HVEG=752/91 mmhg, JmT8=593.0 %, Resp=14 B/min, Comment=SR OCC V-PACED 11:50 PM Guide wire removed intact. ejohnson 11:50 PM Guide catheter removed intact. ejohnson 11:51 PM PstProc: Temp pacer turned on, rate 50 ppm, mA 10, sensitivity 2 ejohnson 11:53 PM HR=55 bpm, VFJG=610/89 mmhg, MyU2=225.0 %, Resp=23 B/min, Comment=SR OCC V-PACED 11:55 PM Procedure completed at 23:55 ejohnson 11:56 PM Sign out completed: Radiation Dose 2724.69 mGy Fluoro Time: 44.5 Isovue 370 - 200ml contrast 261 ml given by Viral Watkins MD, [facility]. Complications: NoneCardiac Rehab Consult needed: YesConfirmed administered medications: No ejohnson 11:56 PM Isovue 370 - 200ml,1 Bottle(s) used. ejohnson 11:56 PM Sheath left in place to be pulled on floor/holding area ejohnson 11:56 PM Post ECG Sinus Bradycardia ejohnson 11:56 PM Post Blood Pressure 166/89 ejohnson 11:56 PM 23:56 Post Pulses Bilateral DP \\T\\ PT 1+ ejohnson 11:56 PM Information taught Cardiac Cath and PCI ejohnson 11:56 PM Education needs Plan of Care and Responsibilities of Patient in Care ejohnson 11:56 PM Learning barriers :None ejohnson 11:57 PM Education Methods Verbal ejohnson 11:57 PM Education evaluation Able to repeat information ejohnson 11:57 PM Site status No bleeding/hematoma - Rt Groin as reported by Leigh Suarez RT (R) at 23:57 ejohnson 11:57 PM Opsite applied ejohnson 11:57 PM HR=56 bpm, FVTT=861/91 mmhg, EsU0=996.0 %, Resp=20 B/min, Comment=SR OCC V-PACED 11:59 PM Time: 23:59 Heparin 2000 units Intravenous Given by Marine Ramirze RN ejohnson 12:01 AM Coronary Dominance: right ejohnson 12:11 AM 16Fr hernandez catheter inserted per Raul Ramirez RN using sterile technique, 10ml of saline inserted into the 10ml balloon to hold the hernandez in place. 200ml of clear yellow urine returned ejohnson 12:13 AM Report given to Meghann OJEDA Pt taken to ICU Room #2. 00:13 ejohnson 12:13 AM Plavix, Effient or Brilinta given Yes prior to arrival to can labeler ejohnson 12:14 AM Delay to floor No ejohnson 12:14 AM Patient out of room: 00:14 ejohnson 12:14 AM Family placed in consult room. ejohnson 12:14 AM Complications: None ejohnson Complications Complication None None Hemodynamics Pressures Site Systolic/A Wave Diastolic/V Wave Mean LV 127 22 41 LV 125 13 24 AO 109 57 79 AO 126 59 85 AO 106 56 76 AO 107 59 78 AO 171 79 115 AO 115 62 84 Post Procedure Information Blood Pressure: 166/89 mmHg Rhythm: Sinus Bradycardia Post procedural instructions were given Site Checks Time Location Status Staff Sheath In? Note 11:57 PM Rt Groin No bleeding/hematoma Leigh Suarez RT (R) Pulses Time Site Pre-Procedure Post-Procedure Note 01/22/2017 10:13:00 PM Bilateral DP \\T\\ PT 1+ 11:56:00 PM Bilateral DP \\T\\ PT 1+ Updated by Jennifer Castrejon RN on 01/23/2017 12:19:42 AM Jennifer Castrejon RN electronically signed on 01/23/2017 12:20:40 AM with status of Final
--- NOTE | 2017-01-23 00:54 | Event Note ---
Date of Encounter: 01/23/17 Time of Encounter: 00:52 Patient seen and examined with nurse practitioner. Patient has been having for the past day symptoms of fatigue lightheadedness nausea and sweating. During my interview patient appeared very fatigued lightheaded sweaty nauseous and bradycardic to 30s sinus bradycardia. Electrocardiogram showed subtle ST segment elevation and inferior leads. Picture suggestive of right coronary disease. I have discussed the case immediately with Dr. Watkins and the patient went to the Records Associate. Prognosis guarded
[2017-01-23 01:28] LABS: Bilirubin,Urine Negative (Negative); Blood,Urine Moderate (Negative); Clarity,Urine Clear (Clear); Color,Urine Yellow (Yellow); Glucose,Urine (UA) Normal (Normal); Ketones,Urine Trace mg/dL (Negative); Leukocyte Esterase,Urine Negative (Negative); Nitrite,Urine Negative (Negative); Protein,Urine Trace mg/dL (Neg-Trace); Specific Gravity,Urine > 1.030 (1.010-1.025); Urobilinogen,Urine Normal (Normal)
[2017-01-23 01:33] LABS: Bacteria,Urine None Seen per hpf (None-Few); Hyaline Casts,Urine None Seen per lpf (None-Few); RBC,Urine 15-30 per hpf (0-3); Squamous Epithelial Cell,Urine Many per lpf (None-Few); WBC,Urine 0-3 per hpf (0-3)
[2017-01-23 01:37] LABS: Amphetamine Screen,Urine Negative ng/mL (Cutoff=1000); Barbiturate Screen,Urine Negative ng/mL (Cutoff=200); Benzodiazepines Screen,Urine Positive ng/mL (Cutoff=200); Cannabinoid Screen,Urine Negative ng/mL (Cutoff = 50); Cocaine Screen,Urine Negative ng/mL (Cutoff= 300); Opiate Screen,Urine Negative ng/mL (Cutoff=300); Phencyclidine Screen,Urine Negative ng/mL (Cutoff=25)
[2017-01-23 01:47] LABS: Activated Partial Thrombo Time 131.9 Seconds (26.0-36.0)
[2017-01-23 01:55] LABS: Heparin anti-factor XA UFH 0.88 IU/mL (0.30-0.70)
[2017-01-23 04:54] LABS: Basophils % 0.2 %; Hematocrit 34.6 % (35.3-44.9); Immature Granulocytes % 0.4 % (0-4); Lymphocytes # 1.2 K/mcL (0.6-4.6); Lymphocytes % 9.4 %; Mean Corpuscular HGB Conc 33.2 g/dL (31.6-35.5); Mean Corpuscular Hemoglobin 30.1 pg (28.0-33.3); Mean Corpuscular Volume 90.6 fL (83.0-100.0); Mean Platelet Volume 10.2 fL (9.4-12.4); Monocytes % 7.8 %; Neutrophils # 10.3 K/mcL (1.6-8.9); Platelet Count 205 K/mcL (140-400); Red Blood Count 3.82 M/mcL (3.82-4.97); Red Cell Distribution Width 14.3 % (11.5-14.5); Segmented Neutrophils % 82.2 %
[2017-01-23 04:55] LABS: Hemoglobin 11.5 g/dL (11.5-15.4)
[2017-01-23 05:07] LABS: BUN/Creatinine Ratio 18 (6-26); Blood Urea Nitrogen 16 mg/dL (7-20); Calcium 8.8 mg/dL (8.6-10.8); Carbon Dioxide 21 mEq/L (19-29); Chloride 108 mEq/L (98-109); Cholesterol 196 mg/dL (< 200); Glucose 113 mg/dL (70-99); HDL Cholesterol 28 mg/dL (40-59); LDL Cholesterol,Calculated 136 mg/dL (0-99); Osmolality,Calculated 288 (280-300); Potassium 3.5 mEq/L (3.5-4.5); Sodium 138 mEq/L (136-145); Triglycerides 158 mg/dL (< 150); eGFR For African Americans > 60 (> 60); eGFR For Non-African Americans > 60 (> 60)
[2017-01-23] MEDS: *HR* Ticagrelor 90 MG TABLET PO SCH ×2 (07:59→20:15)
[2017-01-23] MEDS: Aspirin 81 MG TAB.CHEW PO SCH (07:59)
--- NOTE | 2017-01-23 08:57 | Cardiology Consult Note ---
Date of Encounter: 01/22/17 Time of Encounter: 09:00 Assessment and Plan (1) NSTEMI (non-ST elevated myocardial infarction) Current Visit: Yes Status: Acute Inferior current of injury concerning for acute NC but not meeting STEMI criteria. Patient also bradycardic and altered mental status compared to initial ED presentation. Urgent LHC. Aspirin, heparin and brilinta given. (2) Sinus bradycardia Current Visit: Yes Status: Acute Will require temporary pacemaker, consult EP for need of permanent. (3) Hypertension Current Visit: Yes Status: Acute Qualifiers: Hypertension type: essential hypertension Qualified Code(s): I10 - Essential (primary) hypertension (4) Smoker Current Visit: Yes Status: Acute cessation counseled Discussion w patient/family: The assessment and plan as outlined above was discussed with the patient and/or family members who expressed understanding and agreement. All questions were answered. Thank you for involving us in the care of your patient. Please call with any questions. History of Present Illness Consult date: 01/23/17 Consult reason: Bradycardia/acute NC Chief complaint: nausea/diaphoresis History of present illness: Ms. Lara is a 56 year old female with no previous cardiac history but extensive history of smoking presents with nausea/diaphoresis/dyspnea. Initially patient was reported to be otherwise feeling well and no chest/jaw/ arm discomfort but after moving to the floor she became lethargic, nearly somnolent. HR down to 30-40s but maintaining BP. EKG was noted to have subtle inferior changes suggestive of inferior current of injury. STEMI team activated. Past Med Surg Social Fam HX - Past Medical History Medical history: hypertension Psychiatric history: no psych history - Past Surgical History Surgical History: other (gynecologic surgery) - Social History Smoking Status: Current every day smoker (80 pack year history) Packs per day: 2 Smokeless Tobacco Status: No Alcohol use: none Drug use: none Medications and Allergies No Known Home Drugs 01/22/17 [History] Allergies No Known Allergies Allergy (Verified 09/26/16 09:17) All Systems Review: A 10-system review of systems was performed and is negative for pertinent findings except as documented above in the HPI. - Constitutional Constitutional: no chills, no fever(s) - EENT Nose, mouth and throat: no bleeding gums, no epistaxis - Cardiovascular Cardiovascular: diaphoresis, dyspnea at rest - Respiratory Respiratory: no hemoptysis, no wheezing - Gastrointestinal Gastrointestinal: no coffee ground emesis, no hematemesis - Genitourinary Genitourinary: no dysuria, no hematuria - Musculoskeletal Musculoskeletal: no arthralgias, no myalgias - Integumentary Integumentary: no erythema, no rash - Neurological Neurological: no focal weakness, no loss of vision - Psychiatric Psychiatric: no anxiety, no depression - Hematological/Lymphatic Hematologic/Lymphatic: no easy bleeding, no easy bruising Physical Examination Vital Signs, Last 4 Hours Temp Pulse Resp BP Pulse Ox 01/23/17 08:00 60 16 101/81 98 01/23/17 07:27 49 01/23/17 07:00 98.3 F 49 16 82/57 99 01/23/17 06:34 51 16 80/62 100 01/23/17 06:00 50 14 82/52 100 01/23/17 05:30 50 14 108/76 99 01/23/17 05:00 50 16 90/59 100 General: Other (lethargic) HEENT: Atraumatic Neck: No JVD Cardiac: Reg Rate and Rhythm Lungs: Normal Breath Sounds Neuro: No focal deficits noted Abdomen: Soft Skin: No rashes noted on visualized skin Musculoskeletal: No Chest Wall Tenderness Extremities: No Edema Results 01/23/17 04:40 01/23/17 04:40 Lab Results 01/23/17 01/23/17 01/23/17 01:10 01:10 04:40 WBC Hgb Hct Plt Count APTT 131.9 H* D Sodium Potassium Chloride Carbon Dioxide BUN Creatinine Glucose Calcium Troponin I > 50.00 H* > 50.00 H* 01/23/17 01/23/17 04:40 04:40 WBC 12.6 H Hgb 11.5 D Hct 34.6 L Plt Count 205 APTT Sodium 138 Potassium 3.5 Chloride 108 Carbon Dioxide 21 BUN 16 Creatinine 0.88 Glucose 113 H Calcium 8.8 Troponin I - EKG Interpretation EKG results cardiology: personally reviewed (SB inferior current of injury, nondiagnostic of stemi but concerning for acute mi in clinical setting) Consult Discharge Plan - Plan Referrals: NO,PCP [Primary Care Provider] -
[2017-01-23] MEDS: Isosorbide MONOnitrate (24 HR) 30 MG TAB.ER.24H PO SCH (11:53)
[2017-01-23] MEDS: Nicotine 21 MG PATCH.TD24 TD SCH (11:54)
--- NOTE | 2017-01-23 12:28 | Event Note ---
Date of Encounter: 01/23/17 Time of Encounter: 10:00 - Cardiology Event Note Patient seen and examined at bedside this morning. Heart rate, blood pressure, and other vital signs are stable. Patient says she is still "tired" but denies any chest pain, palpitations, shortness of breath, or diaphoresis. Plan is to continue monitoring and if becomes symptomatic return to microbiology lab manager
--- NOTE | 2017-01-23 13:52 | Internal Med Progress Note ---
<Marine Marshall - Last Filed: 01/23/17 14:42> Date of Encounter: 01/23/17 Time of Encounter: 08:00 - Assessment and plan (1) NSTEMI (non-ST elevated myocardial infarction) Current Visit: Yes Status: Acute Assessment and plan: Patient has extensive history of smoking and essential hypertension. No prior cardiac history. Symptoms on admission include nausea, diaphoresis, dyspnea, lethargy in conjunction with bradycardia and altered mental status. EKG demonstrated subtle inferior changes suggestive of acute cardiac injury and STEMI team activated. Patient subsequently underwent an urgent angiogram, left heart catheter that demonstrated right coronary artery 99% stenotic. 2 stents were successfully placed; one in the ostial RCA and one in the proximal mid RCA , however, the distal lesion was unable to be stented. A temporary pacer was placed due to patient's bradycardia and she was admitted to the ICU for observation. If patient becomes symptomatic, cardiology will plan further intervention for PCI of distal RCA. Laboratory results on admission: Supportive care and pain control: Hydrocodone for moderate pain, morphine for severe pain Continue temporary pacemaker set at heart rate of 50 and close continuous cardiac monitoring. Cardiology has consult the EP for need of permanent pacemaker. Awaiting further planning per cardiology. Continue aspirin, heparin, brilinta, Lipitor, Imdur, nitroglycerin if necessary Encourage lifestyle changes. Smoking cessation discussed. Patient is not interested or willing to quit at this time. Continue nicotine patch. Echocardiogram pending GI prophylaxis: Omeprazole daily Cardiac diet Cardiology is following closely. We will continue with their current recommendations. (2) Sinus bradycardia Current Visit: Yes Status: Acute Assessment and plan: Temporary pacemaker in place. Cardiology has consulted electrophysiology for permanent pacemaker. (3) Hypertension Current Visit: Yes Status: Acute Assessment and plan: Patient is noncompliant on his medications at home. She is currently well controlled. Hold home medications. Qualifiers: Hypertension type: essential hypertension Qualified Code(s): I10 - Essential (primary) hypertension (4) Smoker Current Visit: Yes Status: Acute Assessment and plan: Smoking cessation. Patient was counseled. She is uninterested and unwilling to quit at this time. Patient has smoked 2 packs per day or more for more than 30 years. (5) DVT prophylaxis Current Visit: Yes Status: Acute - Subjective Interval history: Patient was seen and examined. She reports that she is still having episodes of sweating however, she states that she is busy stooling and cannot tell if that might be the reason. Events overnight include episode of bradycardia, with symptoms of nausea, sweating and lethargy with stat EKG, and [place] to come atropine given. Cardiac catheter lab intervention and subsequent transfer to the ICU on temporary transcutaneous pacer. Patient is irritated that she cannot get up and ambulate to use the restroom as she states she dislikes the bedpan. Her is in ICU bed 11 and she states that she inquires about him regularly and misses him. Her blood pressure is much improved. She is currently on 4 L oxygen by nasal cannula and saturating at 98% . Long history of smoking tobacco 2 packs or more per day. On examination 107/ 66 pulse of 56. Vital stable. Afebrile. - Constitutional Vitals: Temp Pulse Resp BP Pulse Ox 97.6 F 58 16 130/69 98 01/23/17 12:09 01/23/17 13:00 01/23/17 13:00 01/23/17 13:00 01/23/17 13:00 General appearance: Present: A&O X 3, pleasant, no acute distress, obese Exam: General: Cooperative, no acute distress, alert and oriented 3, answers questions appropriately HEENT: Normocephalic, atraumatic, alopecia, neck supple, trachea midline, Conjunctiva pink, sclera anicteric, EOMI, PERRL, oral mucosa dry, no orophargeal erythema or exudates Respiratory: No accessory muscle usage, diminished breath sounds bilaterally, no wheezes/rhonchi/rales appreciated Cardiovascular: Regular rate and rhythm, S1 and S2 present, no murmurs/rubs/ gallops/clicks appreciated GI/abdominal: Nondistended, nontender, soft, normal bowel sounds, no peritoneal signs Extremities: No calf tenderness, noncyanotic, no pedal edema appreciated, warm, lower extremity pulses palpable and symmetrical Neurological: Alert and oriented 3, no facial droop, no focal deficits Skin: Dry, intact, normal color Internal Medicine: Result - Labs CBC & Chem 7: 01/23/17 04:40 01/23/17 04:40 Labs: Short CBC 01/23/17 Range/Units 04:40 WBC 12.6 H (4.3-11.1) K/mcL Hgb 11.5 D (11.5-15.4) g/dL Hct 34.6 L (35.3-44.9) % Plt Count 205 (140-400) K/mcL Neutrophils # 10.3 H (1.6-8.9) K/mcL BMP 01/23/17 04:40 Sodium 138 Potassium 3.5 Chloride 108 Carbon Dioxide 21 BUN 16 Creatinine 0.88 Glucose 113 H Calcium 8.8 Cardiac Enzymes 01/23/17 01/23/17 Range/Units 01:10 04:40 Troponin I > 50.00 H* > 50.00 H* (0-0.03) ng/mL Urine 01/23/17 Range/Units 01:10 Urine Color Yellow (Yellow) Urine Clarity Clear (Clear) Urine pH 6.0 (5.0-8.0) pH Units Ur Specific [place] > 1.030 H (1.010-1.025) Urine Protein Trace (Neg-Trace) mg/dL Urine Glucose (UA) Normal (Normal) mg/dL - ABG Interpretation ABG results: PT/INR, D-dimer PT 11.8 Seconds (9.4-12.1) 01/22/17 14:51 Consult Discharge Plan - Plan Referrals: NO,PCP [Primary Care Provider] - <Britta Fontana E - Last Filed: 01/23/17 15:48> Date of Encounter: 01/23/17 - Constitutional Vitals: Temp Pulse Resp BP Pulse Ox 97.6 F 79 16 119/69 98 01/23/17 12:09 01/23/17 15:00 01/23/17 15:00 01/23/17 15:00 01/23/17 15:00 Internal Medicine: Result - Labs CBC & Chem 7: 01/23/17 04:40 01/23/17 04:40 Labs: Short CBC 01/23/17 Range/Units 04:40 WBC 12.6 H (4.3-11.1) K/mcL Hgb 11.5 D (11.5-15.4) g/dL Hct 34.6 L (35.3-44.9) % Plt Count 205 (140-400) K/mcL Neutrophils # 10.3 H (1.6-8.9) K/mcL BMP 01/23/17 04:40 Sodium 138 Potassium 3.5 Chloride 108 Carbon Dioxide 21 BUN 16 Creatinine 0.88 Glucose 113 H Calcium 8.8 Cardiac Enzymes 01/23/17 01/23/17 Range/Units 01:10 04:40 Troponin I > 50.00 H* > 50.00 H* (0-0.03) ng/mL Urine 01/23/17 Range/Units 01:10 Urine Color Yellow (Yellow) Urine Clarity Clear (Clear) Urine pH 6.0 (5.0-8.0) pH Units Ur Specific [place] > 1.030 H (1.010-1.025) Urine Protein Trace (Neg-Trace) mg/dL Urine Glucose (UA) Normal (Normal) mg/dL - ABG Interpretation ABG results: PT/INR, D-dimer PT 11.8 Seconds (9.4-12.1) 01/22/17 14:51 - Attending Attestation I examined this patient and reviewed laboratory, imaging and all diagnostic data. My medical decision-making was reviewed with Dr Marine Marshall - Resident Physician. I agree with the documented findings, disposition and treatment plan as described above.
--- NOTE | 2017-01-23 14:44 | Electrocardiograph Report ---
[place] [address] Test Date: 2017-01-22 Pat Name: Lizeth Lara Department: 102 Room: [facility] Gender: F Cardroom Drawing Runner: Jarocho : 1960 Requested By: Girma Guzman Order Number: [id number] Reading MD: Viral Watkins MD Measurements Intervals [place] Rate: 45 P: 52 OR: 158 QRS: 32 QRSD: 98 T: 20 QT: 539 QTc: 493 Interpretive Statements SINUS BRADYCARDIA WITH OCCASIONAL VENTRICULAR PREMATURE COMPLEXES MINIMAL VOLTAGE CRITERIA FOR LVH PROLONGED QT INTERVAL Electronically Signed On 01-23-2017 14:43:05 EDT by Viral Watkins MD
--- NOTE | 2017-01-23 14:51 | Electrocardiograph Report ---
[address] [place] [address] Test Date: 2017-01-22 Pat Name: Lizeth Lara Department: 111 Room: [facility] Gender: F Merchant Miller: LEONIDAS : 1960 Requested By: Britta Fontana Order Number: [id number] Reading MD: Viral Watkins MD Measurements Intervals [place] Rate: 41 P: 52 CA: 189 QRS: 17 QRSD: 97 T: 7 QT: 552 QTc: 487 Interpretive Statements SINUS BRADYCARDIA WITH OCCASIONAL SUPRAVENTRICULAR PREMATURE COMPLEXES PROBABLE INFERIOR MYOCARDIAL INFARCTION, OF INDETERMINATE AGE Electronically Signed On 01-23-2017 14:50:19 EDT by Viral Watkins MD
--- NOTE | 2017-01-23 15:01 | Electrocardiograph Report ---
[place] [address] Test Date: 2017-01-23 Pat Name: Lizeth Lara Department: 109 Room: [facility] Gender: F Manufacturing Manager: : 1960 Requested By: Britta Fontana Order Number: [id number] Reading MD: Viral Watkins MD Measurements Intervals [place] Rate: 51 P: OR: 0 QRS: -64 QRSD: 166 T: 89 QT: 528 QTc: 504 Interpretive Statements ELECTRONIC VENTRICULAR PACEMAKER APPEARS TO BE UNDERLYING SINUS RHYTHM BASELINE ARTIFACT Electronically Signed On 01-23-2017 14:59:21 EDT by Viral Watkins MD
--- NOTE | 2017-01-23 16:15 | Event Note ---
Date of Encounter: 01/23/17 Time of Encounter: 16:15 - Cardiology Event Note Patient seen and evaluated Dr. Shawn Hooker. Remaining sinus rhythm in the 50s to 60s with no pacing warranted. Right groin temp pacer removed by Dr. Watkins. Remains sinus rhythm.
[2017-01-24 05:38] LABS: Basophils % 0.2 %; Eosinophils % 0.2 %; Hematocrit 33.7 % (35.3-44.9); Hemoglobin 11.1 g/dL (11.5-15.4); Immature Granulocytes % 0.3 % (0-4); Lymphocytes # 1.3 K/mcL (0.6-4.6); Lymphocytes % 11.3 %; Mean Corpuscular HGB Conc 32.9 g/dL (31.6-35.5); Mean Corpuscular Hemoglobin 29.6 pg (28.0-33.3); Mean Corpuscular Volume 89.9 fL (83.0-100.0); Mean Platelet Volume 10.6 fL (9.4-12.4); Monocytes # 1.1 K/mcL (0.0-1.3); Monocytes % 9.6 %; Neutrophils # 9.3 K/mcL (1.6-8.9); Platelet Count 200 K/mcL (140-400); Red Blood Count 3.75 M/mcL (3.82-4.97); Segmented Neutrophils % 78.4 %
[2017-01-24 05:50] LABS: BUN/Creatinine Ratio 20 (6-26); Blood Urea Nitrogen 17 mg/dL (7-20); Calcium 8.8 mg/dL (8.6-10.8); Carbon Dioxide 23 mEq/L (19-29); Chloride 108 mEq/L (98-109); Glucose 101 mg/dL (70-99); Osmolality,Calculated 290 (280-300); Potassium 3.3 mEq/L (3.5-4.5); Sodium 139 mEq/L (136-145); eGFR For African Americans > 60 (> 60); eGFR For Non-African Americans > 60 (> 60)
[2017-01-24] MEDS: Aspirin 81 MG TAB.CHEW PO SCH (07:45)
[2017-01-24] MEDS: Isosorbide MONOnitrate (24 HR) 30 MG TAB.ER.24H PO SCH (07:45)
[2017-01-24] MEDS: *HR* Ticagrelor 90 MG TABLET PO SCH ×2 (07:45→22:19)
[2017-01-24] MEDS: Nicotine 21 MG PATCH.TD24 TD SCH (08:06)
--- NOTE | 2017-01-24 08:28 | Internal Med Progress Note ---
<Bal Kuhn - Last Filed: 01/24/17 10:23> Date of Encounter: 01/24/17 Time of Encounter: 08:28 - Assessment and plan (1) NSTEMI (non-ST elevated myocardial infarction) Current Visit: Yes Status: Acute Assessment and plan: Patient has extensive history of smoking and essential hypertension. No prior cardiac history. Symptoms on admission include nausea, diaphoresis, dyspnea, lethargy in conjunction with bradycardia and altered mental status. EKG demonstrated subtle inferior changes suggestive of acute cardiac injury and STEMI team activated. Patient subsequently underwent an urgent angiogram, left heart catheter that demonstrated right coronary artery 99% stenotic. 2 stents were successfully placed; one in the ostial RCA and one in the proximal mid RCA , however, the distal lesion was unable to be stented. A temporary pacer was placed due to patient's bradycardia and she was admitted to the ICU for observation. Review of patient's shows that temporary pacer was removed yesterday as her heart rate stayed in the mid 50s to 60s. Heart rate is remained stable and she is asymptomatic. Cardiology is on board. Plan: - Continue aspirin 81 mg, atorvastatin 80 mg by mouth at bedtime, Imdur 60 mg by mouth daily, morphine 2 mg IV every 2 hours when necessary, Ranexa 500 mg by mouth twice a day, Brilinta 90 mg by mouth twice a day - Continue with cardiac diet with 2 g sodium restriction, daily weights and strict intake and output recording. - As temporary pacemaker has been removed patient is stable to move to a stepdown unit out of the ICU to continue on cardiac monitoring. Cardiology is following closely. We will continue with their current recommendations. (2) Sinus bradycardia Current Visit: Yes Status: Acute Assessment and plan: Temporary pacemaker removed yesterday. Patient remains on cardiac monitoring and heart rate stable. - Continue cardiac monitoring (3) Hypertension Current Visit: Yes Status: Acute Assessment and plan: Blood pressures are well controlled. Plan: - If patient demonstrates hypertension will address with cardiac protective medications such as lisinopril. Qualifiers: Hypertension type: essential hypertension Qualified Code(s): I10 - Essential (primary) hypertension (4) Smoker Current Visit: Yes Status: Acute Assessment and plan: Smoking cessation. Patient was counseled. She is uninterested and unwilling to quit at this time. Patient has smoked 2 packs per day or more for more than 30 years. (5) DVT prophylaxis Current Visit: Yes Status: Acute Assessment and plan: SCDs - Subjective Interval history: Mrs. Lara 56-year-old female seen and evaluated patient bedside this morning. She denies any pain or discomforts denies any chest pain, palpitations, chest pressure or shortness of breath. She does complain of having loss of vision of her left visual field which she said has been present since the onset of her symptoms. She denies any weakness numbness tingling in any of her extremities any loss of coordination or trouble swallowing. She denies any double vision. She is not otherwise good spirits and awaiting further recommendations from cardiology. - Constitutional Vitals: Temp Pulse Resp BP Pulse Ox 100.1 F H 63 12 131/72 93 01/24/17 08:00 01/24/17 08:00 01/24/17 08:00 01/24/17 08:00 01/24/17 08:00 General appearance: Present: A&O X 3, pleasant, no acute distress, obese Exam: General: Patient alert, awake, oriented 3, interactive, in no acute distress HEENT: Normocephalic, atraumatic, pupils equal reactive to light, nasal cavity patent and open septum median position, oral mucosa moist, uvula midline, neck supple trachea midline no palpable lymphadenopathy, no thyromegaly. Chest: Symmetric bilateral correlating with respiratory effort, effort nonlabored. Cardiac: Regular rate and rhythm, positive S1, S2, no bruits appreciated bilateral carotids, Radial pulses 2+ bilateral, posterior tibial and dorsal pedal pulses 2+ bilateral. Respiratory: Clear to auscultation all lung lindsey Abdomen: Soft, nontender, positive bowel sounds, no palpable masses appreciated on examination Extremities: Symmetric bilateral, no erythema or edema, patient moving all 4 extremities spontaneously. Neurologic: No focal deficits appreciated on examination. EOMI, pupils equal react to light bilateral, sensation is intact in upper and lower extremities, patient is moving all 4 limbs spontaneously with appropriate strength. Mental status is appropriate. Face symmetric, muscle strength symmetric bilateral upper and lower extremities. Internal Medicine: Result - Labs CBC & Chem 7: 01/24/17 05:16 01/24/17 05:16 Labs: Short CBC 01/24/17 Range/Units 05:16 WBC 11.8 H (4.3-11.1) K/mcL Hgb 11.1 L (11.5-15.4) g/dL Hct 33.7 L (35.3-44.9) % Plt Count 200 (140-400) K/mcL Neutrophils # 9.3 H (1.6-8.9) K/mcL BMP 01/24/17 05:16 Sodium 139 Potassium 3.3 L Chloride 108 Carbon Dioxide 23 BUN 17 Creatinine 0.83 Glucose 101 H Calcium 8.8 - ABG Interpretation ABG results: PT/INR, D-dimer PT 11.8 Seconds (9.4-12.1) 01/22/17 14:51 Consult Discharge Plan - Plan Referrals: NO,PCP [Primary Care Provider] - <Britta Fontana - Last Filed: 01/24/17 16:08> Date of Encounter: 01/24/17 - Constitutional Vitals: Temp Pulse Resp BP Pulse Ox 99.2 F 79 20 132/64 94 01/24/17 16:07 01/24/17 16:00 01/24/17 16:00 01/24/17 16:00 01/24/17 16:00 Internal Medicine: Result - Labs CBC & Chem 7: 01/24/17 05:16 01/24/17 05:16 Labs: Short CBC 01/24/17 Range/Units 05:16 WBC 11.8 H (4.3-11.1) K/mcL Hgb 11.1 L (11.5-15.4) g/dL Hct 33.7 L (35.3-44.9) % Plt Count 200 (140-400) K/mcL Neutrophils # 9.3 H (1.6-8.9) K/mcL [facility] 01/24/17 05:16 Sodium 139 Potassium 3.3 L Chloride 108 Carbon Dioxide 23 BUN 17 Creatinine 0.83 Glucose 101 H Calcium 8.8 Cardiac Enzymes 01/24/17 01/24/17 Range/Units 09:05 14:51 Troponin I 25.23 H* 21.72 H* (0-0.03) ng/mL - ABG Interpretation ABG results: PT/INR, D-dimer PT 11.8 Seconds (9.4-12.1) 01/22/17 14:51 - Impressions Impressions Head CT 01/24/17 10:20 IMPRESSION: Right occipital hypodensity with mild edema consistent with likely subacute ischemic stroke. No intracranial hemorrhage noted. D/ / 01/24/2017 11:33:56 Em Wiggins MD / Licha Spann Interpreting Provider: Em Wiggins MD - Attending Attestation I examined this patient and reviewed laboratory, imaging and all diagnostic data. My medical decision-making was reviewed with Dr Swapnil Kuhn - Resident Physician. I agree with the documented findings, disposition and treatment plan as described above.
[2017-01-24] MEDS ORDERED: Ranolazine 500 MG TAB.ER.12H PO SCH (10:00)
[2017-01-24] MEDS ORDERED: Isosorbide MONOnitrate (24 HR) 60 MG TAB.ER.24H PO SCH (10:00)
--- NOTE | 2017-01-24 10:06 | Cardiology Progress Note ---
Date of Encounter: 01/24/17 Time of Encounter: 09:00 Assessment and Plan (1) NSTEMI (non-ST elevated myocardial infarction) Current Visit: Yes Status: Acute . Patient had brief episodes of chest pain intermittently this morning symptoms. EKG currently nondiagnostic for correlation which was taken just after episode, troponin today 25.23. Plan: Increase Lipitor 80 mg at bedtime, Imdur 60 mg start now, Ranexa 500 mg twice a day started now, order EKG and troponin for 1330 hrs. today already scheduled. Continue management medically for effect patient's symptoms and assess the need for re-cardiac catheterization if the need arises. Patient otherwise seems fine. Symptoms may just be postinfarct irritation. On reexamination the patient she complains of left-sided visual loss, when asked when symptoms began. Patient states symptoms started Friday prior to heart catheterization. full neuro examination was accomplished and showed the left lateral hemispheric visual loss. The patient's neuro exam was unremarkable for any focal deficits. Recommend neurology consultation for recommendations concerning patient's More recommendations follow once we have more information. Discussion w patient/family: The assessment and plan as outlined above was discussed with the patient and/or family members who expressed understanding and agreement. All questions were answered. Thank you for involving us in the care of your patient. Please call with any questions. Subjective Principal diagnosis: NSTEMI Interval history: Patient seen and examined at bedside this a.m. Patient is complaining of intermittent episodes of chest pain left lower chest wall area, dull in nature, 5-7/10 on pain scale. Pain resolved on its sounds. Each episode lasted a few minutes. Episode at time of exam: EKG was taken troponin ordered. No significant findings on EKG, vitals remained stable, patient denied shortness of breath or diaphoresis Objective Vital Signs, Last 4 Hours Temp Pulse Resp BP Pulse Ox 01/24/17 08:00 100.1 F H 63 12 131/72 93 01/24/17 07:00 77 12 127/62 93 General: Conversant, No Apparent Distress HEENT: Atraumatic, Normocephaly, Mucus Membranes Moist Neck: No JVD, Normal carotid pulses Cardiac: Reg Rate and Rhythm, No Murmur, Other Lungs: Normal Breath Sounds, No Wheeze, Rales, Rhonchi Neuro: Alert and responsive, Other (1140hrs:left hemispheric visual loss. No other focal neurological deficits, strength 5 out 5 bilaterally, reflexes 2/4 bilaterally upper and lower extremities, sensation equal bilaterally intact) Abdomen: Soft, Non-Tender Skin: No rashes noted on visualized skin Musculoskeletal: No Chest Wall Tenderness Extremities: No Clubbing, No Cyanosis, No Edema, Normal Pulses Results 01/24/17 05:16 01/24/17 05:16 Lab Results 01/24/17 01/24/17 01/24/17 05:16 05:16 09:05 WBC 11.8 H Hgb 11.1 L Hct 33.7 L Plt Count 200 Sodium 139 Potassium 3.3 L Chloride 108 Carbon Dioxide 23 BUN 17 Creatinine 0.83 Glucose 101 H Calcium 8.8 Troponin I 25.23 H* - Imaging and Cardiology Cardiac cath: report reviewed - EKG Interpretation EKG results cardiology: personally reviewed (EKG taken [id number] and 0909 hrs. just after patient's chest pain episode: shows a sinus rhythm at a rate of 82 bpm occasional PVCs. No ST elevations or depressions in the leads. Inverted T waves in leads 2,3, aVF. High-voltage lateral leads V3 to V6 showing signs of left ventricular hypertrophy appears EKG for comparison was during temporary pacing) Consult Discharge Plan - Plan Referrals: NO,PCP [Primary Care Provider] -
--- NOTE | 2017-01-24 12:20 | Event Note ---
Date of Encounter: 01/24/17 Time of Encounter: 11:30 I have examined Mrs. Lara this morning at bedside and after our discussion she mentioned that she could not see anything to her left and standing on her left side she was unable to see me. I did a full neurologic examination with cranial nerves II through XII intact, EOMI, pupils equal react to light, sensation upper and lower extremities is intact, patellar and brachial and Achilles reflexes were 2+ and symmetric bilaterally. She was unable to see my fingers as I moved him into her left visual field until roughly midline. She said that she had been exhibiting this loss of visual field since Friday and felt that they correlated with the onset of her symptoms. - I ordered a stat head CT without contrast which demonstrated a right occipital hypodensity with mild edema consistent with likely subacute ischemic stroke. No intracranial hemorrhage noted. - I informed the cardiology team of the head CT findings and consult today and spoke with Dr. Salinas with [facility] regarding these findings. - I have ordered a carotid duplex ultrasound, bilateral lower extremity Dopplers. The patient is already on cardiac monitoring while she is in the ICU and treated for an NSTEMI. - The patient has significant risk factors including hypertension, hyperlipidemia, coronary artery disease, current every day smoker with an 80- pack-year history, female over the age of 50. I discussed smoking cessation with the patient, importance of medication compliance the and healthy diet. Plan: - Echocardiogram completed with the workup for NSTEMI - Ordered carotid Doppler, bilateral lower extremity Dopplers - Physical therapy, occupational therapy evaluations. - Neurology already consulted - Continued patient education regarding risk factors, smoking cessation
[2017-01-24] MEDS ORDERED: Isosorbide MONOnitrate (24 HR) 30 MG TAB.ER.24H PO ONE (14:10)
--- NOTE | 2017-01-24 15:49 | Neurology - Consult Note ---
Date of Encounter: 01/24/17 Time of Encounter: 15:43 Assessment and Plan (1) Cerebrovascular accident (CVA) due to embolism of posterior cerebral artery with infarctions of both occipital lobes Current Visit: Yes Status: Acute (2) Cerebral infarct Current Visit: Yes Status: Acute This patient has unfortunately suffered a right occipital lobe infarct. I suspected it may possibly have been secondary to a mural thrombus. As her symptoms of visual abnormalities actually occurred in close proximity to her other symptoms of nausea and headache. The echocardiogram did reveal a left ventricular wall motion abnormalities. At this juncture I would simply recommend aspirin 325 mg daily, along with statins for hyperlipidemia as well as a smoking cessation program. Further recommendations will be made pending the outcome of the carotid Doppler study. Stroke protocol orders should be followed. Time spent providing critical care of this patient in the intensive care unit which included discussing the case with nursing, as assessing the chart, and examining the patient and explaining my synopsis to the patient and her family was 60 minutes. Qualifiers: Qualified Code(s): I63.9 - Cerebral infarction, unspecified History of Present Illness HPI: Ms. Lara is a 56 year old female who is being seen for neurologic evaluation secondary to a right occipital lobe infarct. Patient was admitted to the [facility] on January 22 secondary to nausea and vomiting headache fatigue and general malaise. She in retrospect realizes that she probably had some visual problems initially. However she did not have any visual complaints until today when she noted that she could not see anything on the left side. At that time a CT scan of the head was obtained and revealed an area of infarcts in the right occipital region. She certainly does have stroke risk factors as she has hypertension and has an extensive smoking history as well as hyperlipidemia. Echocardiogram was obtained and reveals left ventricular wall motion abnormalities. Her daughter is present today and she is also a nurse. She states that her mother is for the most part noncompliant. She is supposed to be on antihypertensives and does not take them. She was not taking aspirin prior to this event. Currently she feels better with the exception of the left homonymous hemianopsia. Past Med Surg Social Fam HX - Past Medical History Medical history: hypertension Psychiatric history: no psych history - Past Surgical History Surgical History: other (gynecologic surgery) - Social History Smoking Status: Current every day smoker (80 pack year history) Packs per day: 2 Smokeless Tobacco Status: No Alcohol use: none Drug use: none Medications and Allergies No Known Home Drugs 01/22/17 [History] Allergies No Known Allergies Allergy (Verified 09/26/16 09:17) All Systems: A 10-system review of systems was performed and is negative for pertinent findings except as documented above in the HPI. Review of Systems: Patient still maintains left homonymous hemianopsia. She denies headache. Otherwise the 10 point review of systems is consistent with a history of present illness and otherwise negative. Physical Examination - Vital Signs Vital Signs: Initial Vital Signs Temp Pulse Resp BP Pulse Ox 98.1 F 50 18 145/74 95 01/22/17 12:54 01/22/17 12:54 01/22/17 12:54 01/22/17 12:54 01/22/17 12:54 - Exam Exam: Neurologic examination is performed and finds following: Cerebral functions-she is alert oriented to person place and time, follows commands and answers questions appropriately. There is no nausea or aphasia or apraxia identified. Judgment and abstract thinking are intact. Cranial nerves-pupils are equal and reactive to light and accommodation extraocular motility is intact. She does have a left homonymous hemianopsia. Sensory to face intact, mastication is intact, there is no facial asymmetry is identified. Speech is not dysarthric. Hearing is intact symmetrically. Soft palate elevates bilaterally on phonation tongue protrudes midline. Cerebellar exam-no dysdiadochokinesis or dysmetria. She performs finger-to- nose and [id number] without ataxia. Gait is not ataxic. Motor exam-she has normal strength bulk and tone of the upper and lower extremities bilaterally. It is equal bilaterally, there are no involuntary movements identified no atrophy present. Sensory exam-light touch deep touch vibratory and proprioception are all intact. Deep tendon reflexes-1 symmetrically at the biceps triceps and brachioradialis symmetrically, patellar reflexes are 1 symmetrically, Achilles reflexes are absent symmetrically. No Jose trauma or Babinski signs are present. Results - Laboratory Findings CBC and BMP: 01/24/17 05:16 01/24/17 05:16 Abnormal lab findings: Abnormal lab results WBC 11.8 K/mcL (4.3-11.1) H 01/24/17 05:16 RBC 3.75 M/mcL (3.82-4.97) L 01/24/17 05:16 Hgb 11.1 g/dL (11.5-15.4) L 01/24/17 05:16 Hct 33.7 % (35.3-44.9) L 01/24/17 05:16 Neutrophils # 9.3 K/mcL (1.6-8.9) H 01/24/17 05:16 APTT 131.9 Seconds (26.0-36.0) H* D 01/23/17 01:10 Heparin Anti-Xa, Unfract 0.88 IU/mL (0.30-0.70) H 01/23/17 01:10 Potassium 3.3 mEq/L (3.5-4.5) L 01/24/17 05:16 Glucose 101 mg/dL (70-99) H 01/24/17 05:16 POC Glucose 132 (58-89) H 01/23/17 00:34 AST 57 Units/L (5-34) H 01/22/17 14:51 Troponin I 25.23 ng/mL (0-0.03) H* 01/24/17 09:05 Globulin 4.1 g/dL (2.4-3.5) H 01/22/17 14:51 Albumin/Globulin Ratio 0.9 (1.1-2.2) L 01/22/17 14:51 Triglycerides 158 mg/dL (< 150) H 01/23/17 04:40 LDL Cholesterol, Calc 136 mg/dL (0-99) H 01/23/17 04:40 VLDL Cholesterol, Calc 32 mg/dL (< 31) H 01/23/17 04:40 HDL Cholesterol 28 mg/dL (40-59) L 01/23/17 04:40 Cholesterol/HDL Ratio 7.0 (0-4.9) H 01/23/17 04:40 Lipase 7 Units/L (8-78) L 01/22/17 14:51 Ur Specific [place] > 1.030 (1.010-1.025) H 01/23/17 01:10 Urine Ketones Trace mg/dL (Negative) H 01/23/17 01:10 Urine Blood Moderate (Negative) H 01/23/17 01:10 Urine Microscopic RBC 15-30 per hpf (0-3) H 01/23/17 01:10 Ur Squamous Epith Cells Many per lpf (None-Few) H 01/23/17 01:10 U Benzodiazepines Scrn Positive ng/mL (Uxvazs=721) H 01/23/17 01:25 Consult Discharge Plan - Plan Referrals: NO,PCP [Primary Care Provider] -
[2017-01-24] MEDS ORDERED: *HR* Morphine 2 MG/ML SYRINGE IVP PRN (15:52)
[2017-01-24] MEDS ORDERED: Ondansetron 4 MG/2 ML VIAL IVP PRN (15:52)
[2017-01-24] MEDS ORDERED: Nitroglycerin 0.4 MG TAB.SUBL SL PRN (15:52)
[2017-01-24] MEDS ORDERED: Naloxone 0.4 MG/ML INJ IVP PRN (15:52)
[2017-01-24] MEDS ORDERED: *HR* HYDROcodone/Acet 5/325 mg TABLET PO PRN (15:52)
[2017-01-24] MEDS ORDERED: Acetaminophen 325 MG TABLET PO PRN (15:52)
[2017-01-24] MEDS: Ranolazine 500 MG TAB.ER.12H PO SCH (22:20)
[2017-01-25 05:00] LABS: Basophils % 0.3 %; Eosinophils # 0.1 K/mcL (0.0-0.6); Eosinophils % 0.7 %; Hematocrit 31.6 % (35.3-44.9); Hemoglobin 10.6 g/dL (11.5-15.4); Immature Granulocytes % 0.5 % (0-4); Lymphocytes # 1.4 K/mcL (0.6-4.6); Lymphocytes % 13.4 %; Mean Corpuscular HGB Conc 33.5 g/dL (31.6-35.5); Mean Corpuscular Hemoglobin 29.4 pg (28.0-33.3); Mean Corpuscular Volume 87.8 fL (83.0-100.0); Mean Platelet Volume 10.8 fL (9.4-12.4); Monocytes # 1.1 K/mcL (0.0-1.3); Monocytes % 10.7 %; Neutrophils # 7.9 K/mcL (1.6-8.9); Platelet Count 201 K/mcL (140-400); Red Cell Distribution Width 13.8 % (11.5-14.5); Segmented Neutrophils % 74.4 %
[2017-01-25 05:21] LABS: BUN/Creatinine Ratio 18 (6-26); Blood Urea Nitrogen 14 mg/dL (7-20); Calcium 8.6 mg/dL (8.6-10.8); Carbon Dioxide 22 mEq/L (19-29); Chloride 106 mEq/L (98-109); Glucose 97 mg/dL (70-99); Osmolality,Calculated 288 (280-300); Potassium 3.2 mEq/L (3.5-4.5); Sodium 139 mEq/L (136-145); eGFR For African Americans > 60 (> 60); eGFR For Non-African Americans > 60 (> 60)
[2017-01-25 05:24] LABS: Alanine Aminotransferase 19 Units/L (0-55); Albumin/Globulin Ratio 0.8 (1.1-2.2); Alkaline Phosphatase 92 Units/L (38-126); Aspartate Amino Transferase 39 Units/L (5-34); BUN/Creatinine Ratio 17 (6-26); Blood Urea Nitrogen 14 mg/dL (7-20); Calcium 8.7 mg/dL (8.6-10.8); Carbon Dioxide 22 mEq/L (19-29); Chloride 106 mEq/L (98-109); Globulin 3.4 g/dL (2.4-3.5); Glucose 97 mg/dL (70-99); Osmolality,Calculated 286 (280-300); Potassium 3.1 mEq/L (3.5-4.5); Sodium 138 mEq/L (136-145); eGFR For African Americans > 60 (> 60); eGFR For Non-African Americans > 60 (> 60)
[2017-01-25 05:25] LABS: Albumin 2.8 g/dL (3.5-5.0); Bilirubin,Total 1.3 mg/dL (0.2-1.2); Total Protein 6.2 g/dL (6.0-8.3)
[2017-01-25] MEDS: Ranolazine 500 MG TAB.ER.12H PO SCH (08:38)
[2017-01-25] MEDS: *HR* Ticagrelor 90 MG TABLET PO SCH (08:39)
[2017-01-25] MEDS ORDERED: Nicotine 21 MG PATCH.TD24 TD SCH (09:00)
[2017-01-25] MEDS ORDERED: Isosorbide MONOnitrate (24 HR) 60 MG TAB.ER.24H PO SCH (09:00)
[2017-01-25] MEDS ORDERED: Aspirin 81 MG TAB.CHEW PO SCH (09:00)
--- NOTE | 2017-01-25 11:17 | Neurology Progress Note ---
Date of Encounter: 01/25/17 Time of Encounter: 11:14 Assessment and Plan (1) CVA (cerebral vascular accident) Current Visit: Yes Status: Acute 56-year old woman with longstanding history of hypertension (not on medications for the same), admitted with NSTEMI, wall motion abnormalities on ECHO, with left homonymous hemianopsia, likely with right occipital lobe/parietal lobe infarct. Duplex done, not resulted. Control of stroke risk factors, ASA, -clor (for stent), statins, smoking cessation. No changes in medications for now. Call if questions. Qualifiers: Precerebral and cerebral artery: posterior cerebral artery Laterality of affected vessel: right Qualified Code(s): I63.331 - Cerebral infarction due to thrombosis of right posterior cerebral artery Subjective Principal diagnosis: NSTEMI Interval history: The patient states that her vision is getting mildly better. She is a smoker, and states that she does not crave to smoke, and she is deciding to quit. overall she is doing better and wants to go home. No complaints except for the vision loss today. no facial droop. no weakness in legs or arms. no chest pain. no shortness of breath. Objective - Constitutional Vitals: Temp Pulse Resp BP Pulse Ox 98.7 F 72 18 124/67 95 01/25/17 07:00 01/25/17 07:00 01/25/17 07:00 01/25/17 07:00 01/25/17 07:00 Vital Signs - 24 hr 01/24/17 12:00 01/24/17 14:00 01/24/17 16:00 Temperature 98.2 F 98.2 F 99.2 F Pulse Rate 68 68 79 Respiratory Rate 18 20 20 Blood Pressure 132/64 132/64 132/64 O2 Sat by Pulse Oximetry 95 94 01/24/17 16:07 01/24/17 21:30 01/25/17 03:59 Temperature 99.2 F 98.4 F Pulse Rate 84 76 Respiratory Rate 17 15 Blood Pressure 128/61 121/63 O2 Sat by Pulse Oximetry 95 95 01/25/17 07:00 Temperature 98.7 F Pulse Rate 72 Respiratory Rate 18 Blood Pressure 124/67 O2 Sat by Pulse Oximetry 95 General appearance: Present: cooperative, A&O X 3, no acute distress, answers questions appropriately - Head Head exam: Present: atraumatic, normocephalic - Eye Eye exam: Present: PERRL, conjuntiva pink, sclera anicteric Pupils: Present: PERRL - Extremities Exam Extremities exam: Present: warm, radial pulses palpable and symetrical. Absent : calf tenderness, cyanotic, pedal edema - Neurological Exam Sensorimotor examination: Present: intact Motor Examination: Present: full strength in all major muscle groups Motor examination - right side: 5/5: deltoids, biceps, triceps, wrist flexion, wrist extension, carpenters supervisor, hip flexors, tibialis Anterior, quadriceps, toe extension (EHL), plantarflexion Motor examination - left side: 5/5: deltoids, biceps, triceps, wrist flexion, wrist extension, hip flexors, carpenters supervisor, quadriceps, tibialis Anterior, toe extension (EHL), plantarflexion Sensation intact: Present: intact Reflex and gait examination: normal gait Reflexes: Biceps: 1+, Triceps: 1+, Brachioradialis: 1+, Patella: 1+, Achilles: 1 + Mental Status Examination: Present: awake, alert, oriented to person, oriented to place, oriented to time, follows commands appropriately, answers questions appropriately, no agnosia, no aphasia, no aproxia, lucid Cranial nerve examination: Present: PERRL, EOMI, corneal reflexes brisk symmetrically, sensory to face intact, mastication intact, no facial asymmetry is present, no dysarthria, hearing is intact symmetrically, soft palate elevates bilaterally upon phonation, gag reflex intact, flexes SCM and trapezius muscles symmetrically with full power, tongue protrudes midline, no atrophy or facial fasiculations present. Absent: visual lindsey intact (has left homonymous hemianopsia.) Cerebellar examination: Present: no dysmetria - Expanded Neurological Exam Cranial Nerves: EOM's intact PM: Normal Results - Laboratory Findings CBC and BMP: 01/25/17 03:58 01/25/17 03:58 Abnormal lab findings: Abnormal lab results RBC 3.60 M/mcL (3.82-4.97) L 01/25/17 03:58 Hgb 10.6 g/dL (11.5-15.4) L 01/25/17 03:58 Hct 31.6 % (35.3-44.9) L 01/25/17 03:58 APTT 131.9 Seconds (26.0-36.0) H* D 01/23/17 01:10 Heparin Anti-Xa, Unfract 0.88 IU/mL (0.30-0.70) H 01/23/17 01:10 Potassium 3.1 mEq/L (3.5-4.5) L 01/25/17 03:58 POC Glucose 132 (58-89) H 01/23/17 00:34 Total Bilirubin 1.3 mg/dL (0.2-1.2) H D 01/25/17 03:58 AST 39 Units/L (5-34) H 01/25/17 03:58 Troponin I 21.72 ng/mL (0-0.03) H* 01/24/17 14:51 Albumin 2.8 g/dL (3.5-5.0) L D 01/25/17 03:58 Albumin/Globulin Ratio 0.8 (1.1-2.2) L 01/25/17 03:58 Triglycerides 158 mg/dL (< 150) H 01/23/17 04:40 LDL Cholesterol, Calc 136 mg/dL (0-99) H 01/23/17 04:40 VLDL Cholesterol, Calc 32 mg/dL (< 31) H 01/23/17 04:40 HDL Cholesterol 28 mg/dL (40-59) L 01/23/17 04:40 Cholesterol/HDL Ratio 7.0 (0-4.9) H 01/23/17 04:40 Lipase 7 Units/L (8-78) L 01/22/17 14:51 Ur Specific [place] > 1.030 (1.010-1.025) H 01/23/17 01:10 Urine Ketones Trace mg/dL (Negative) H 01/23/17 01:10 Urine Blood Moderate (Negative) H 01/23/17 01:10 Urine Microscopic RBC 15-30 per hpf (0-3) H 01/23/17 01:10 Ur Squamous Epith Cells Many per lpf (None-Few) H 01/23/17 01:10 U Benzodiazepines Scrn Positive ng/mL (Lmloan=462) H 01/23/17 01:25 Consult Discharge Plan - Plan Referrals: NO,PCP [Primary Care Provider] -
[2017-01-25 11:28] VITALS: BP 126/82
--- NOTE | 2017-01-25 11:46 | Cardiology Progress Note ---
Date of Encounter: 01/25/17 Time of Encounter: 11:44 Assessment and Plan (1) NSTEMI (non-ST elevated myocardial infarction) Current Visit: Yes Status: Acute Per cardiology: S/p inferior AR with PTCA and EVELIO to the ostial , mid, and distal RCA. EVELIO x 2. There is an 80% residual stenosis in the distal RCA. Recommended for medical management. If medical management fails consider out-pt PCI of the RCA. She initially required temporary pacemaker. D/c'd 1st day after stent. No recurrent bradycardia seen. Avg HR 71 bpm over last 12 hours. Minimum HR was 51 bpm at 0630. Importance of DAPT with asa and brilinta uninterrupted for minimum of one year reviewed. Continue statin and bb. Smoking cessation. Declines NRT. Ranexa added for chest pain yesterday. No concerning EKG findings seen. Troponin trending down. Close out-pt f/u in one week. [facility] will coordinate. Cardiology will sign off. (2) Cerebrovascular accident (CVA) due to embolism of posterior cerebral artery with infarctions of both occipital lobes Current Visit: Yes Status: Acute C/o vision changes starting on friday of this week prior to [facility]. CT completed yesterday was positive for CVA. Neurology following. Appreciate input. MRI likely will not tire changer per neurology. Asa and smoking cessation recommended. Vision is improving. Discussion w patient/family: The assessment and plan as outlined above was discussed with the patient and/or family members who expressed understanding and agreement. All questions were answered. Thank you for involving us in the care of your patient. Please call with any questions. Subjective Principal diagnosis: NSTEMI Interval history: Mrs. Lara denies recurrent chest pain. SHe is resting comfortably without distress. Objective Vital Signs, Last 4 Hours Temp Pulse Resp BP Pulse Ox 01/25/17 11:00 97.9 F 79 18 126/82 94 General: Conversant, No Apparent Distress HEENT: Atraumatic, Normocephaly, Mucus Membranes Moist Neck: No JVD, Normal carotid pulses Cardiac: Reg Rate and Rhythm, Normal S1 and S2, No Murmur Lungs: Normal Breath Sounds, No Wheeze, Rales, Rhonchi Neuro: Alert and responsive, No focal deficits noted Abdomen: Soft, Non-Tender Skin: No rashes noted on visualized skin Musculoskeletal: No Chest Wall Tenderness Extremities: No Clubbing, No Cyanosis, No Edema, Normal Pulses, Other (Right groin dressing removed. No hematoma. No ecchymosis or redness. ) Results 01/25/17 03:58 01/25/17 03:58 Lab Results 01/24/17 01/25/17 01/25/17 14:51 03:58 03:58 WBC 10.6 Hgb 10.6 L Hct 31.6 L Plt Count 201 Sodium 139 Potassium 3.2 L Chloride 106 Carbon Dioxide 22 BUN 14 Creatinine 0.79 Glucose 97 Calcium 8.6 Total Bilirubin AST ALT Alkaline Phosphatase Troponin I 21.72 H* 01/25/17 03:58 WBC Hgb Hct Plt Count Sodium 138 Potassium 3.1 L Chloride 106 Carbon Dioxide 22 BUN 14 Creatinine 0.81 Glucose 97 Calcium 8.7 Total Bilirubin 1.3 H D AST 39 H ALT 19 Alkaline Phosphatase 92 Troponin I - Imaging and Cardiology Echo: report reviewed Cardiac cath: report reviewed Consult Discharge Plan - Plan Referrals: NO,PCP [Primary Care Provider] -
--- NOTE | 2017-01-25 12:57 | Carotid Imaging Report ---
Carotid Duplex Patient Name:Lizeth Lara Order Number:[id number] Procedure Date:01/24/2017 Date:1960Age:56 yrs Gender:Female Rt.BP:132 / 64 mmHgHeart Rate: Location:[facility] Room #: 02 Exercise Rider:Sierra Mercado, RDKAILEE Referring MD:Bal Kuhn DO railroad crossing protection maintainer:None Reading MD:Oj Quinonez MD , FACS Primary Indications:CVA Risk Factors Yes/No Hypertension Yes Smoking Current Yes Impressions: Findings: Right carotid system is essentially normal. Findings: Left mid ICA and distal ICA have a severe, 60-79% stenosis by velocity only. No significant plaque noted. Recommendations: Risk Factor Modification and Suggest clinical correlation. Findings Carotid Duplex: Right: The right proximal common carotid artery has a PSV of 97 cm/s and a EDV of 14 cm/s. The right mid common carotid artery has a PSV of 82 cm/s and a EDV of 14 cm/s. The right distal common carotid artery has a PSV of 79 cm/s and a EDV of 17 cm/s. There is nonstenotic plaque in the right bifurcation with a PSV of 91 cm/s and a EDV of 19 cm/s. The right proximal internal carotid artery has a PSV of 88 cm/s and a EDV of 26 cm/s. The right mid internal carotid artery has a PSV of 116 cm/s and a EDV of 40 cm/s. The right distal internal carotid artery has a PSV of 109 cm/s and a EDV of 32 cm/s. The right eca has a PSV of 123 cm/s and a EDV of 10 cm/s. The right vertebral artery has a PSV of 44 cm/s and a EDV of 17 cm/s. There is antegrade spectral Doppler flow patterns. Left: There is nonstenotic plaque in the left proximal common carotid artery with a PSV of 103 cm/s and a EDV of 19 cm/s. There is smooth plaque. The left mid common carotid artery has a PSV of 105 cm/s and a EDV of 20 cm/s. The left distal common carotid artery has a PSV of 86 cm/s and a EDV of 17 cm/s. There is nonstenotic plaque in the left bifurcation with a PSV of 70 cm/s and a EDV of 20 cm/s. There is nonstenotic plaque in the left proximal internal carotid artery with a PSV of 96 cm/s and a EDV of 30 cm/s. There is smooth plaque. There is 60-79% stenosis in the left mid internal carotid artery with a PSV of 136 cm/s and a EDV of 40 cm/s. There is 60-79% stenosis in the left distal internal carotid artery with a PSV of 159 cm/s and a EDV of 51 cm/s. The left eca has a PSV of 230 cm/s and a EDV of 13 cm/s. The left vertebral artery has a PSV of 47 cm/s and a EDV of 11 cm/s. There is antegrade spectral Doppler flow patterns. Prior Study: No prior study available for comparison. Carotid Results Right PSV EDV Assessment Proximal CCA 97 14 Mid CCA 82 14 Distal CCA 79 17 Bifurcation 91 19 Non Stenotic Plaque Proximal ICA 88 26 Mid ICA 116 40 Distal ICA 109 32 ECA 123 10 Vertebral Artery 44 17 Antegrade Flow Left PSV EDV Assessment Proximal CCA 103 19 Non Stenotic Plaque Mid CCA 105 20 Distal CCA 86 17 Bifurcation 70 20 Non Stenotic Plaque Proximal ICA 96 30 Non Stenotic Plaque Mid ICA 136 40 60-79% stenosis Distal ICA 159 51 60-79% stenosis ECA 230 13 Vertebral Artery 47 11 Antegrade Flow Ratio's Right ICA/CCA Ratio: 1.41 ICA/CCA Values: 116/82 Left ICA/CCA Ratio: 1.51 ICA/CCA Values: 159/105 Updated by Oj Quinonez MD, FACS on 01/25/2017 12:49:53 PM Oj Quinonez MD electronically signed on 01/25/2017 12:52:09 PM with status of Final
--- NOTE | 2017-01-25 14:11 | Discharge Summary ---
Date of Encounter: 01/25/17 Time of Encounter: 14:09 - Discharge Diagnosis (1) NSTEMI (non-ST elevated myocardial infarction) Priority: Primary Status: Acute (2) CVA (cerebral vascular accident) Priority: Primary Status: Acute Qualifiers: CVA mechanism: thrombosis Precerebral and cerebral artery: posterior cerebral artery Laterality of affected vessel: right Qualified Code(s): I63.331 - Cerebral infarction due to thrombosis of right posterior cerebral artery (3) Sinus bradycardia Priority: Primary Status: Acute (4) Hypertension Priority: Secondary Status: Chronic Qualifiers: Hypertension type: essential hypertension Qualified Code(s): I10 - Essential (primary) hypertension (5) Smoker Priority: Secondary Status: Chronic - Discharge Medications Prescriptions: Nitroglycerin 0.4 mg SL Q5MIN PRN #7 tab.subl PRN Reason: Chest Pain Aspirin 81 mg PO DAILY #30 tab.chew Atorvastatin [Lipitor] 80 mg PO HS #60 tablet Isosorbide MONOnitrate (24 HR) [Imdur] 60 mg PO DAILY #30 tab.er.24h Metoprolol [Lopressor] 12.5 mg PO BID #60 tablet Nicotine [Nicotine Patch] 1 each TD DAILY #30 patch.td24 Potassium Chloride 40 meq PO BIDWM #60 tab.er.prt Ranolazine [Ranexa] 500 mg PO BID #60 tab.er.12h Ticagrelor [Brilinta] 90 mg PO BID #60 tablet Home Medications: Aspirin 81 mg PO DAILY #30 tab.chew 01/25/17 [Rx] Atorvastatin [Lipitor] 80 mg PO HS #60 tablet 01/25/17 [Rx] Isosorbide MONOnitrate (24 HR) [Imdur] 60 mg PO DAILY #30 tab.er.24h 01/25/17 [ Rx] Metoprolol [Lopressor] 12.5 mg PO BID #60 tablet 01/25/17 [Rx] Nicotine [Nicotine Patch] 1 each TD DAILY #30 patch.td24 01/25/17 [Rx] Nitroglycerin 0.4 mg SL Q5MIN PRN #7 tab.subl 01/25/17 [Rx] Potassium Chloride 40 meq PO BIDWM #60 tab.er.prt 01/25/17 [Rx] Ranolazine [Ranexa] 500 mg PO BID #60 tab.er.12h 06/17/17 [Rx] Ticagrelor [Brilinta] 90 mg PO BID #60 tablet 01/25/17 [Rx] Allergies/Adverse Reactions: Allergies No Known Allergies Allergy (Verified 09/26/16 09:17) Procedures/tests Complete & Pending: Procedures Performed prior 72 hours Category Date Time Status CT head/brain wo con [CT] Stat Cat Scan 01/24/17 10:20 Completed Left Heart Cath [CL Cardiac Catheterization] [CL] Curing Supervisor 01/22/17 21:51 Ordered Routine ECG 12 lead ECG [ECG] Routine Y 01/22/17 21:05 Completed ECG 12 lead ECG [ECG] Routine Y 01/23/17 01:37 Completed ECG 12 lead ECG [ECG] Stat Y 01/24/17 08:44 Ordered EKG [ECG 12 lead ECG] [ECG] Routine Y 01/24/17 13:30 Ordered EV carotid duplex imaging BI Routine Y 01/24/17 13:43 Completed EV echocardiogram Routine Y 01/23/17 19:45 Completed Date of admission: 01/22/17 17:12 Primary care physician: PCP NO Consults: 01/23/17 11:59 Consult to Cardiac Rehabilitation-Phase1 [CONS] Routine Comment: Reason for Consult: NSTEMI Call Completed: No 01/24/17 11:54 Consult to Neurology [CONS] Routine Consulting Provider: [facility] Reason for Consult: loss of left visual field since Friday. Spoke with Dr. Salinas. Call Completed: Yes - Patient Status Disposition: Home, Self-Care Condition: Good Functional capacity at discharge: independent ambulation Overall status at discharge: patient is progressing back to baseline - Discharge Instructions Instructions: Metoprolol (By mouth), Nitroglycerin (By mouth), Potassium Chloride (By mouth), Aspirin (By mouth), Nicotine (Absorbed through the skin), Isosorbide Mononitrate (By mouth), Atorvastatin (By mouth), Ranolazine (By mouth ), Ticagrelor (By mouth), Myocardial Infarction (DC), Ischemic Stroke (DC), Ischemic Stroke (GEN), Chronic Hypertension (DC), Cigarette Smoking and Your Health, Life Skills Trainer (GEN) Follow Up With: NO,PCP [Primary Care Provider] - (f/u with dr salinas in 1-2 weeks. f/u in e cardiology clinic in 1 week) Additional Instructions: I encourage you to quit smoking. follow up int he cardiology clinic in 1 week. follow up in the neurology clinic in 1-2 weeks check your blood pressure twice daily, write numbers down and bring record to doctor's appointment. - Diet and Activity Activity: resume usual activities as tolerated Diet: low fat, low cholesterol, low salt diet Interval History: no new complaints. Hospital course: Ms. Lara is a 56 year old female with history of CAD, htn, tobacco use and non- compliant with medications who presents with nausea, vomiting and headaches. EKG showed sinus bradycardia. troponin peaked at >50. She underwent LHC and had PTCA and EVELIO x2 to the ostial , mid, and distal RCA, 80% residual stenosis in the distal RCA. Echocardiogram showed LVEF 55% and moderate diastolic dysfunction. Initially, She required temporary pacemaker. Third day of hospitalization patient reports left homonymous hemianopsia that was present since admission. CT head showed right occipital hypodensity with mild edema consistent with likely subacute ischemic stroke. No intracranial hemorrhage noted. Doppler of carotids was unremarkable. patient and daughter explained in detail the diagnosis. PLAN: asa and brilinta uninterrupted for minimum of one year. statin and bb. Smoking cessation. - Time Spent with Patient Total time spent providing and/or coordinating discharge services: - Constitutional Vitals: Temp Pulse Resp BP Pulse Ox 97.9 F 79 18 126/82 94 01/25/17 11:00 01/25/17 11:00 01/25/17 11:00 01/25/17 11:00 01/25/17 11:00 General appearance: Present: A&O X 3, pleasant, no acute distress, obese - Neck Neck exam general surgery: Present: supple, trachea midline - Respiratory Respiratory exam: Present: CTAB - Cardiovascular Cardiovascular exam: Present: RRR - GI/Abdominal GI/Abdominal exam: Present: normal bowel sounds, soft. Absent: distended, tenderness - Extremities Exam Extremities exam: Absent: pedal edema - Back Exam Back exam: Absent: CVA tenderness (L), CVA tenderness (R) - Neurological Exam Neurological exam: Present: alert, oriented X3, strengths equal and symetr throughout. Absent: facial droop, speech deficit - Skin Skin exam: Absent: rash
--- NOTE | 2017-01-27 14:39 | Invasive Diagnostic Lab ---
Name: Lizeth Lara Date of Study: 01/22/2017 Date: 1960 Ht: 157.0 cm /61.8 in Medical Record#: [id number] Age: 56 Wt: 70.4 kg / 155.21 lb Account/Order#: [id number] Gender: Female BSA: 1.71 Order #: [id number] Fluoro Dose: 2725 mGy BMI: 28.56 Procedure Physician: Viral Watkins MD, [facility] Referring MD: Referring MD: Procedures Performed: PCI of Acute ID LEFT HEART CATH TEMP PM INSERTION - SINGLE Indications: STEMI, Bradycardia Impressions: There is severe one vessel coronary artery disease. The left ventricle is normal and has normal contractility EF 50% Patient had successful PTCA/Drug-Eluting Stent placement in the proximal and mid RCA. Residual mid-distal RCA 80% stenosis after PTCA, unable to pass stent into this portion despite guide extension and multiple wires with resultant SARAH 3 flow. Recommendations: Optimal medical therapy of patient's disease. Aggressive risk factor modification. If continued symptoms despite medical therapy, consider outpatient PCI of mid-distal RCA History/Risk Factors: HTN Procedure Access obtained in the right Femoral vein by percutaneous puncture Access obtained in the right Femoral vein. Patient had successful PTCA/Drug-Eluting Stent placement in the proximal and mid RCA. Complications: None Contrast: Isovue 261ml Hemodynamics: Pressures Site Systolic/ A Wave Diastolic/ V Wave End Diastolic/ Mean HR LV 127 22 41 104 LV 125 13 24 64 AO 109 57 79 60 AO 126 59 85 42 AO 106 56 76 48 AO 107 59 78 44 AO 171 79 115 71 AO 115 62 84 61 LV Ventriculography Ejection Method: LV Gram Ejection Fraction: 50% Wall Motion: CASTRO Anterobasal Normal Anterolateral Normal Apical: Normal Inferoapical Normal Inferobasal Normal Coronary Dominance: right Lesion Findings/Interventions * Left Main Coronary Artery The LMCA is angiographically free of disease. * Left Anterior Descending There is a 20% stenosis in the Proximal LAD. The lesion has a SARAH flow of 3. There is a 50% stenosis in the Mid LAD. The lesion has a SARAH flow of 3. * Circumflex There is a 60% stenosis in the Mid Circumflex. The lesion has a SARAH flow of 3. * Right Coronary Artery The Distal RCA is small in size. There is a 20 mm long, 95% stenosis in the Proximal RCA, ostial. The lesion has a SARAH flow of 2. An intervention was performed on the Proximal RCA with a final stenosis of 0%. There were no lesion complications. The final SARAH flow was 3. There is a 24 mm long, 99% stenosis in the Mid RCA. The lesion has a SARAH flow of 2. An intervention was performed on the Mid RCA with a final stenosis of 80%. There were no lesion complications. The final SARAH flow was 2. There is a 95% mid-distal RCA stenosis s/p PTCA with 80% residual disease. Unable to pass stent despite guide extension and multiple wires. Interventional Device(s) Vessel Segment Type Name Diameter (mm) Length (mm) Proximal RCA Balloon Emerge Monorail 2 20 Proximal RCA Drug Eluting Stent Synergy 2.5 20 Proximal RCA Balloon NC Trek Rx 2.5 15 Proximal RCA Balloon NC Emerge 4 8 Mid RCA Balloon Emerge Monorail 2 12 Mid RCA Drug Eluting Stent Synergy 2.5 24 Mid RCA Balloon NC Trek Rx 2 12 Updated by Jennifer Castrejon RN on 01/23/2017 12:10:28 AM Viral Watkins MD, [facility] electronically signed on 01/27/2017 2:33:40 PM with status of Final
--- NOTE | 2017-01-27 14:53 | Electrocardiograph Report ---
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
== END 2017-01-25 17:22 | disposition home or self-care (01) | DRG 246 ==
LOC: 2NENU 12:42 → EMEROO 12:42 → 2NENU 16:59 → SUATTDRO 17:12 → ICNU 21:52 → 2NENU 01-24 21:22
PROVIDERS: ADMIT Nurse Practitioner Family; ATTEND Internal Medicine

== ENCOUNTER 2017-02-02 15:53 | Inpatient (IN) ==
--- NOTE | 2017-02-02 16:39 | Emergency Department Note ---
Disposition Clinical Impression: Acute kidney injury, Elevated troponin, Dehydration Disposition: Admitted As Inpatient Condition: Good Time of Disposition: 17:55 General Adult HPI - General Chief complaint: ED Neuro Symptoms/Deficit Stated complaint: Fatigue, nausea, weakness Time Seen by Provider: 02/02/17 16:03 Source: patient Mode of arrival: ambulatory Limitations: no limitations Nursing Notes Reviewed: Yes Vital Signs Reviewed: Yes - History of Present Illness HPI Narrative: 56-year-old female presents with hypertension, hyperlipidemia, CVA with left hemianopsia, and CAD with recent PCI x2 stents presents with nausea weakness. One hour prior to arrival around the 1500 patient was feeling weak and nauseated. This was a similar feeling she had a week prior that resulted in a NSTEMI. She recently had her follow-up appointment with Dr. Watkins her cardiologists yesterday 02/01. She continues to take her medications without any missed doses. Patient reports shortness of breath with the inability to catch her breath. Denies any chest discomfort. She did report some right shoulder pain. She denies any recent illness, cough, abdominal pain. She denies any recent falls. She reports her CVA was diagnosed while she was in ICU recovering. Denies any new weakness. Pain Scale: 0 - Related Data Previous Rx's Medication Instructions Recorded Aspirin 81 mg PO DAILY #30 tab.chew 01/25/17 Atorvastatin [Lipitor] 80 mg PO HS #60 tablet 01/25/17 Isosorbide MONOnitrate (24 HR) 60 mg PO DAILY #30 tab.er.24h 01/25/17 [Imdur] Metoprolol [Lopressor] 12.5 mg PO BID #60 tablet 01/25/17 Nicotine [Nicotine Patch] 1 each TD DAILY #30 patch.td24 01/25/17 Nitroglycerin 0.4 mg SL Q5MIN PRN #7 tab.subl 01/25/17 Potassium Chloride 40 meq PO BIDWM #60 tab.er.prt 01/25/17 Ranolazine [Ranexa] 500 mg PO BID #60 tab.er.12h 01/25/17 Ticagrelor [Brilinta] 90 mg PO BID #60 tablet 01/25/17 Allergies Allergy/AdvReac Type Severity Reaction Status Date / Time No Known Allergies Allergy Verified 09/26/16 09:17 All systems ED: reviewed and negative except as stated. Constitutional: Reports: chills, weakness. Denies: fever Cardiovascular: Reports: chest pain. Denies: palpitations, dyspnea on exertion Respiratory: Reports: dyspnea. Denies: cough, wheezes Gastrointestinal: Reports: nausea. Denies: abdominal pain, vomiting Genitourinary: Denies: urgency, dysuria Musculoskeletal: Denies: back pain, neck pain Integumentary: Denies: rash, abrasion Neurological: Denies: headache, weakness, confusion, abnormal gait Endocrine: Reports: fatigue Past Medical History - Past Medical History Attestation: Yes The following information was validated with the patient. Source: patient Medical history: Reports: hypertension, myocardial infarction, TIA Surgical history: Reports: other (gynecologic surgery) Psychiatric history: Reports: no psych history BEAUTY ARTIST history: Reports: no BEAUTY ARTIST history - Social History Smoking Status: Former smoker Smokeless Tobacco Status: No Alcohol use: Reports: none Drug use: Reports: none Physical Exam - General Limitations: no limitations General appearance: alert, in no apparent distress - Head Head exam: atraumatic, normocephalic, normal inspection - Eye Eye exam: Present: normal appearance, PERRL, EOMI - ENT ENT exam: normal exam, normal oropharynx, mucous membranes moist - Neck Neck exam: Present: normal inspection, full ROM, trachea midline - Expanded Neck Exam Neck exam focused ED: Absent: midline tenderness - Chest Chest inspection: Present: normal inspection, symmetric chest wall rise. Absent : tenderness - Respiratory Respiratory exam: Present: normal lung sounds bilaterally. Absent: respiratory distress, wheezes - Cardiovascular Cardiovascular exam: Present: regular rate, normal rhythm, normal heart sounds - Abdominal Exam Abdominal exam: Present: soft, Non-Tender, normal bowel sounds. Absent: tenderness, distention, guarding, rebound, rigidity - Extremities Exam Extremities exam: Present: normal inspection, full ROM, normal capillary refill. Absent: tenderness, pedal edema, calf tenderness - Back Exam Back exam: Present: normal inspection, full ROM. Absent: tenderness, vertebral tenderness - Neurological Exam Neurological exam: Present: alert, oriented X3, CN II-XII intact, other (Left visual field defect consistent with hemianopsia) - Expanded Neurological Exam Patient oriented to: Present: person, place, time Speech: Present: fluid speech Cranial nerves: EOM function (II, III, IV, ): Normal, facial sensation (V): Normal, facial palsy (VII): Normal, gag reflex (IX): Normal, spinal accessory function (XI): Normal, tongue deviation (XII): Normal Cerebellar function: finger to nose: Normal, heel to [place]: Normal Motor strength - LUE: 5/5 Motor strength - RUE: 5/5 Motor strength - LLE: 5/5 Motor strength - RLE: 5/5 Sensory exam upper extremity: light touch: Normal Sensory exam lower extremity: light touch: Normal - Psychiatric Psychiatric exam: Present: normal affect, normal mood - Skin Skin exam: Present: warm, dry, intact, normal color Course Course Narrative: 56-year-old female presents with nausea and weakness. It has been one week since her NSTEMI and CVA. Patient currently denies any chest pain. Her vital signs are stable here. Her exam is otherwise unremarkable. Chest pain workup initiated. Full dose aspirin ordered. EKG shows old Q waves without any acute ischemic findings today. Due to the similarity of her symptoms from prior hospitalization anticipate admission to hospital. Final disposition pending workup. - Reevaluation(s) Reevaluation #1: Patient has acute kidney injury 1.89. IV fluids initiated. Mild leukocytosis 14.6. Troponin critical of 0.34, downtrending from prior 21.72. I believe her low blood pressure signs of dehydration explain her symptoms of fatigue and weakness. Plan to admit for dehydration with ROSA. Patient is in agreement with this plan. She has received a full dose aspirin. AVOID nephrotoxic drugs at this time. Impression is dehydration, ROSA, and elevated troponin with recent NSTEMI. Time: 17:22 - Consultations Consultation #1: Spoke with on-call hospitalist gissel Hart to admit for hypotension, ROSA, elevated troponin prior NSTEMI. No further orders at this time Time: 17:48 Vital Signs Temperature 97.7 F 02/02/17 15:57 Pulse Rate 82 02/02/17 15:57 Respiratory Rate 18 02/02/17 15:57 Blood Pressure 101/68 02/02/17 15:57 O2 Sat by Pulse Oximetry 96 02/02/17 15:57 Temperature 97.7 F 02/02/17 15:57 Pulse Rate 75 02/02/17 16:33 Respiratory Rate 18 02/02/17 16:33 Blood Pressure 98/69 02/02/17 16:33 O2 Sat by Pulse Oximetry 98 02/02/17 16:33 Oxygen Delivery Oxygen Delivery Room Air Medical Decision Making - Medical Records Medical records reviewed: Yes I reviewed the patient's medical records. - Lab Data Lab results reviewed: Yes I reviewed the patient's lab results. Result diagrams: 02/02/17 16:45 02/02/17 16:45 Lab Results 02/02/17 02/02/17 02/02/17 Range/Units 16:45 16:45 16:45 WBC 14.6 H (4.3-11.1) K/mcL RBC 4.68 (3.82-4.97) M/mcL Hgb 13.6 (11.5-15.4) g/dL Hct 41.3 (35.3-44.9) % MCV 88.2 (83.0-100.0) fL MCH 29.1 (28.0-33.3) pg MCHC 32.9 (31.6-35.5) g/dL RDW 13.3 (11.5-14.5) % Plt Count 524 H (140-400) K/mcL MPV 10.0 (9.4-12.4) fL Immature Gran % 1.2 (0-4) % Seg Neutrophils % 77.7 % Lymphocytes % 12.9 % Monocytes % 6.9 % Eosinophils % 0.8 % Basophils % 0.5 % Neutrophils # 11.4 H (1.6-8.9) K/mcL Lymphocytes # 1.9 (0.6-4.6) K/mcL Monocytes # 1.0 (0.0-1.3) K/mcL Eosinophils # 0.1 (0.0-0.6) K/mcL Basophils # 0.1 (0.0-0.2) K/mcL Immature Plt Fraction 3.7 (1.1-6.1) % Sodium 134 L (136-145) mEq/L Potassium 5.3 H (3.5-4.5) mEq/L Chloride 104 (98-109) mEq/L Carbon Dioxide 16 L (19-29) mEq/L BUN 19 (7-20) mg/dL Creatinine 1.89 H (0.57-1.11) mg/dL Est GFR ( Amer) 33 L (> 60) Est GFR (Non-Af Amer) 28 L (> 60) BUN/Creatinine Ratio 10 (6-26) Glucose 120 H (70-99) mg/dL Calculated Osmolality 281 (280-300) Calcium 10.2 (8.6-10.8) mg/dL Troponin I 0.34 H* (0-0.03) ng/mL - Radiology Data Radiology results reviewed: Yes I reviewed the patient's radiology results. Chest X-Ray 02/02/17 16:27 IMPRESSION: No acute process. D/ / Morris Carroll MD / Morris Carroll MD Interpreting Provider: Morris Carroll MD - EKG Data EKG #1 EKG attestation: Yes I reviewed and interpreted this EKG. EKG results narrative: EKG performed 1615 normal sinus rhythm 75 bpm, good R-R wave progression, normal axis, there are no ST elevations or depressions, no T-wave inversions. Old Q waves in inferior leads consistent with recent CA. Intervals are within normal limits ME interval 140 QRS 92 QT QTC 380 409. Compared to old EKG performed 01/24/2017 shows findings of Q waves in inferior leads with T wave inversion. No acute ischemic changes.
[2017-02-02 16:54] LABS: Hematocrit 41.3 % (35.3-44.9); Hemoglobin 13.6 g/dL (11.5-15.4); Immature Granulocytes % 1.2 % (0-4); Immature Platelets 3.7 % (1.1-6.1); Lymphocytes % 12.9 %; Mean Corpuscular HGB Conc 32.9 g/dL (31.6-35.5); Mean Corpuscular Hemoglobin 29.1 pg (28.0-33.3); Mean Corpuscular Volume 88.2 fL (83.0-100.0); Platelet Count 524 K/mcL (140-400); Red Blood Count 4.68 M/mcL (3.82-4.97); Red Cell Distribution Width 13.3 % (11.5-14.5); Segmented Neutrophils % 77.7 %
[2017-02-02 16:55] LABS: Basophils # 0.1 K/mcL (0.0-0.2); Basophils % 0.5 %; Eosinophils # 0.1 K/mcL (0.0-0.6); Eosinophils % 0.8 %; Lymphocytes # 1.9 K/mcL (0.6-4.6); Monocytes % 6.9 %; Neutrophils # 11.4 K/mcL (1.6-8.9)
[2017-02-02 17:06] LABS: Calcium 10.2 mg/dL (8.6-10.8); Potassium 5.3 mEq/L (3.5-4.5)
[2017-02-02] MEDS ORDERED: 0.9 % Sodium Chloride 1,000 ML IVC ONE (17:19)
[2017-02-02] MEDS ORDERED: Aspirin 81 MG TAB.CHEW PO STA (17:23)
--- NOTE | 2017-02-02 19:38 | Internal Med History&Physical ---
Date of Encounter: 02/02/17 Time of Encounter: 19:30 Assessment and Plan (1) Acute kidney injury Current visit: Yes Status: Acute ROSA and dehydration - secondary to nausea and likely poor PO intake causing generalized weakness and fatigue Continue IV fluids, IV Zofran and IV famotidine Cardiac diet, labs in a.m. EKG no acute ST-T changes Troponin-trending down Chest x-ray - negative for any acute process Continue all home meds (2) CAD (coronary artery disease) Current visit: Yes Status: Chronic Recent non-ST elevation [place], status post PCI and stents Troponin 0.34, we will trend EKG no acute ST T changes Continue aspirin, statin and Brillinta Continue all home meds Qualifiers: Coronary Disease-Associated Artery/Lesion type: [place] artery [place] vs. 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 - with transient left hemianopsia Now no deficits, stable Continue aspirin, statin, Brillinta Qualifiers: CVA mechanism: thrombosis Precerebral and cerebral artery: posterior cerebral artery Laterality of affected vessel: right Qualified Code(s): I63.331 - Cerebral infarction due to thrombosis of right posterior cerebral artery (5) Elevated troponin Current visit: Yes Status: Acute Troponin trending down to 0.34 from 21 (which was last week) No evidence of acute [place] We will trend the troponin and continue home medications (6) DVT prophylaxis Current visit: No Status: Acute Continue heparin subcutaneous (7) Smoker Current visit: No Status: Chronic Patient states she recently quit about one week ago Internal Medicine - H&P: HPI Chief complaint: Nause, generalized weakness Admitted From: Emergency Dept History of present illness: Ms. Lara is a 56 year old female hypertension, recent CVA, recent NSTEMI status post PCI, hyperlipidemia and recent history of left hemianopsia. She presents to the ED with complaints of generalized weakness, fatigue and nausea. Patient states she started having the symptoms this afternoon. She states that when she was admitted about a week ago, prior to her [place] she had similar symptoms. Patient states she has been taking all her medications regularly. She followed up with her counter hand Dr. Watkins about one day ago and was recommended a six-month outpatient follow-up. Patient also complained of some transient shortness of breath which is now resolved. Patient denies chest pain. She did have some right shoulder pain. She denies palpitations denies headaches denies lightheadedness denies abdominal pain no diarrhea or vomiting. On examination patient is awake and alert. Not in any distress. Able to provide history. Her family members are at bedside. Patient states her symptoms have now slightly improved. She has no other acute complaints at present. No other associated symptoms. EKG does not show any acute ST-T changes only changes. Creatinine is slightly elevated at 1.89 and white count was also elevated at 14.6. Patient's troponin is elevated at 0.34 and is trending down. We will trend troponins. Patient is being admitted for dehydration and history of present illness and nausea. Chest x-ray does not show any acute process. Patient and family have been explained about the condition and care. Understood and agreed. No one answered questions. CODE STATUS full code. Past Med Surg Social Fam HX - Past Medical History Medical history: coronary artery disease, CVA, hypertension, myocardial infarction Psychiatric history: no psych history - Past Surgical History Surgical History: other - Social History Smoking Status: Former smoker Smokeless Tobacco Status: No Alcohol use: none Drug use: none Internal Medicine - H&P: Meds Aspirin 81 mg PO DAILY #30 tab.chew 01/25/17 [Rx] Atorvastatin [Lipitor] 80 mg PO HS #60 tablet 01/25/17 [Rx] Isosorbide MONOnitrate (24 HR) [Imdur] 60 mg PO DAILY #30 tab.er.24h 01/25/17 [ Rx] Metoprolol [Lopressor] 12.5 mg PO BID #60 tablet 01/25/17 [Rx] Nitroglycerin 0.4 mg SL Q5MIN PRN #7 tab.subl 01/25/17 [Rx] Potassium Chloride 40 meq PO BIDWM #60 tab.er.prt 01/25/17 [Rx] Ranolazine [Ranexa] 500 mg PO BID #60 tab.er.12h 01/25/17 [Rx] Ticagrelor [Brilinta] 90 mg PO BID #60 tablet 01/25/17 [Rx] Allergies No Known Allergies Allergy (Verified 09/26/16 09:17) All Systems PM: A 10-system review of systems was performed and is negative for pertinent findings except as documented above in the HPI. - Constitutional Constitutional: as per HPI, fatigue, weakness, no fever(s) - EENT Eyes: no blurry vision, no loss of vision - Cardiovascular Cardiovascular ROS IM: no chest pain, no diaphoresis, no dyspnea, no dyspnea on exertion, no lightheadedness, no palpitations, no syncope - Respiratory Respiratory: no cough, no dyspnea, no dyspnea on exertion, no wheezing, no chest congestion - Gastrointestinal Gastrointestinal: nausea, no abdominal pain, no constipation, no cramping, no diarrhea, no vomiting - Genitourinary Genitourinary: no dysuria - Musculoskeletal Musculoskeletal ROS IM: arthralgias - Neurological Neurological ROS: no abnormal gait, no abnormal speech, no convulsions, no dizziness, no focal weakness, no headache(s), no loss of vision - Constitutional Vitals: Temp Pulse Resp BP Pulse Ox 97.7 F 75 18 99/64 97 02/02/17 15:57 02/02/17 16:33 02/02/17 18:16 02/02/17 18:16 02/02/17 19:12 General appearance: Present: A&O X 3, pleasant, no acute distress, answers questions appropriately - Head Head exam: Present: atraumatic - Eye Eye exam: Present: EOMI - ENT ENT exam: Present: mucous membranes dry - Neck Neck exam general surgery: Present: supple - Respiratory Respiratory exam: Present: CTAB. Absent: rales, rhonchi, wheezes - Cardiovascular Cardiovascular exam: Present: bradycardia, RRR, +S1, +S2, systolic murmur - GI/Abdominal GI/Abdominal exam: Present: soft. Absent: distended, firm, guarding, tenderness - Extremities Exam Extremities exam: Present: radial pulses palpable and symetrical. Absent: cyanotic, pedal edema, tenderness - Neurological Exam Neurological exam: Present: alert, oriented X3, no focal deficits Internal Med - H&P Results - Labs CBC & Chem 7: 02/02/17 16:45 02/02/17 16:45
[2017-02-02] MEDS ORDERED: Naloxone 0.4 MG/ML INJ IVP PRN (19:39)
[2017-02-02] MEDS ORDERED: Ondansetron 4 MG/2 ML VIAL IVP PRN (19:39)
[2017-02-02] MEDS ORDERED: Acetaminophen 325 MG TABLET PO PRN (19:39)
[2017-02-02] MEDS ORDERED: *HR* Morphine 2 MG/ML SYRINGE IVP PRN (19:39)
[2017-02-02] MEDS ORDERED: Nitroglycerin 0.4 MG TAB.SUBL SL PRN (19:47)
[2017-02-02] MEDS ORDERED: Dextrose Gel 15 GM PO PRN ×2 (19:49)
[2017-02-02] MEDS ORDERED: *HR* Dextrose 50 % in Water (Syg) 50 ML SYRINGE IVP PRN (19:49)
[2017-02-02] MEDS ORDERED: D5% in Water 1,000 ML IVC PRN ×2 (19:49→23:09)
[2017-02-02 20:47] LABS: INR 1.3; Prothrombin Time 13.7 Seconds (9.4-12.1)
[2017-02-02] MEDS: Ranolazine 500 MG TAB.ER.12H PO SCH (21:33)
[2017-02-02] MEDS: 0.9 % Sodium Chloride 1,000 ML IVC SCH (21:36)
[2017-02-02] MEDS: *HR* Ticagrelor 90 MG TABLET PO SCH (22:43)
[2017-02-02] MEDS: *HR* Heparin 5,000 UNIT/ML VIAL SQ SCH (23:35)
[2017-02-03 03:20] LABS: Basophils # 0.1 K/mcL (0.0-0.2); Basophils % 0.6 %; Eosinophils # 0.2 K/mcL (0.0-0.6); Eosinophils % 1.8 %; Hematocrit 36.6 % (35.3-44.9); Immature Granulocytes % 1.5 % (0-4); Lymphocytes # 2.4 K/mcL (0.6-4.6); Lymphocytes % 18.5 %; Mean Corpuscular HGB Conc 32.2 g/dL (31.6-35.5); Mean Corpuscular Hemoglobin 28.8 pg (28.0-33.3); Mean Corpuscular Volume 89.3 fL (83.0-100.0); Mean Platelet Volume 10.2 fL (9.4-12.4); Platelet Count 432 K/mcL (140-400); Red Cell Distribution Width 13.3 % (11.5-14.5); Segmented Neutrophils % 69.6 %
[2017-02-03 03:21] LABS: Hemoglobin 11.8 g/dL (11.5-15.4)
[2017-02-03 03:32] LABS: Calcium 9.1 mg/dL (8.6-10.8); Potassium 4.6 mEq/L (3.5-4.5)
[2017-02-03] MEDS: Famotidine 20 MG/2 ML VIAL IVP SCH ×2 (05:48→17:42)
[2017-02-03] MEDS: Aspirin 81 MG TAB.CHEW PO SCH (07:43)
[2017-02-03] MEDS: Ranolazine 500 MG TAB.ER.12H PO SCH ×2 (07:43→20:04)
[2017-02-03] MEDS: Insulin LISPRO 300 UNITS/3 ML VIAL SQ SCH ×2 (07:43→11:22)
[2017-02-03] MEDS: Isosorbide MONOnitrate (24 HR) 60 MG TAB.ER.24H PO SCH (07:43)
[2017-02-03] MEDS: *HR* Heparin 5,000 UNIT/ML VIAL SQ SCH ×3 (07:43→23:25)
[2017-02-03] MEDS: *HR* Ticagrelor 90 MG TABLET PO SCH ×2 (07:43→20:04)
[2017-02-03] MEDS: 0.9 % Sodium Chloride 1,000 ML IVC SCH ×2 (10:15→23:25)
--- NOTE | 2017-02-03 10:16 | Internal Med Progress Note ---
Date of Encounter: 02/03/17 Time of Encounter: 09:00 - Assessment and plan (1) Hypertension Current Visit: No Status: Chronic Assessment and plan: Blood pressure is stable, Continue home medications except ACEI/ARB because of acute kidney injury. Qualifiers: Hypertension type: essential hypertension Qualified Code(s): I10 - Essential (primary) hypertension (2) Smoker Current Visit: No Status: Chronic Assessment and plan: Patient quit smoking now. (3) DVT prophylaxis Current Visit: No Status: Acute Assessment and plan: Heparin subcutaneously (4) Cerebrovascular accident (CVA) due to embolism of posterior cerebral artery with infarctions of both occipital lobes Current Visit: No Status: Acute Assessment and plan: Recent history of CVA on last admission. Stable. Continue antiplatelet treatment. (5) Acute kidney injury Current Visit: Yes Status: Acute Assessment and plan: Patient has diarrhea, which may cause dehydration. Patient also has recent LHC with contrast use. - Continue hydration patient, closely monitor renal function (6) Elevated troponin Current Visit: Yes Status: Acute Assessment and plan: Patient has recent NSTEMI, troponin is on the downtrend but still higher than normal range. Patient denies chest pain (7) Dehydration Current Visit: Yes Status: Acute Assessment and plan: Due to diarrhea. Will give patient IV fluid and closely monitor BMP (8) CAD (coronary artery disease) Current Visit: Yes Status: Chronic Assessment and plan: S/P stent, stable, chest pain, continue DAPT, BB, and statin. Qualifiers: Coronary Disease-Associated Artery/Lesion type: [place] artery [place] vs. transplanted heart: [place] heart Associated angina: without angina Qualified Code(s): I25.10 - Atherosclerotic heart disease of [place] coronary artery without angina pectoris (9) Acute gastroenteritis Current Visit: Yes Status: Acute Assessment and plan: Patient has nausea and diarrhea, consider acute gastroenteritis. Patient has recent hospital admission, need to rule out C. difficile infection. Will check GI panel. - Time Spent With Patient 25 - 35 minutes - Subjective Interval history: Patient is a 56-year-old female admitted for acute gastroenteritis and acute kidney injury. Her past medical history is significant for CAD S/P recent LHC and stenting, hypertension, CVA. Patient was seen and examined. Still nausea, no vomiting. Nausea symptoms and has improved after treatment. Still has diarrhea, with 3-4 watery bowel movement over last night. Vitals are stable. Continue supportive treatment with IV fluids. Closely monitor patient. - Constitutional Vitals: Temp Pulse Resp BP Pulse Ox 97.8 F 57 16 112/66 97 02/03/17 07:12 02/03/17 07:12 02/03/17 07:12 02/03/17 07:12 02/03/17 07:52 General appearance: Present: A&O X 3, pleasant, no acute distress, answers questions appropriately - Head Head exam: Present: atraumatic, normocephalic - Eye Eye exam: Present: PERRL, conjuntiva pink, sclera anicteric Pupils: Present: PERRL - Neck Neck exam general surgery: Present: supple, trachea midline. Absent: lymphadenopathy - Respiratory Respiratory exam: Present: CTAB. Absent: accessory muscle use, rales, rhonchi, wheezes - Cardiovascular Cardiovascular exam: Present: RRR, +S1, +S2. Absent: diastolic murmur, gallop, rubs, systolic murmur - GI/Abdominal GI/Abdominal exam: Present: normal bowel sounds, soft, no peritoneal signs. Absent: distended, tenderness - Extremities Exam Extremities exam: Present: warm, radial pulses palpable and symetrical. Absent : calf tenderness, cyanotic, pedal edema - Neurological Exam Neurological exam: Present: CN II-XII intact, oriented X3, no focal deficits. Absent: pronater drift, facial droop, speech deficit - Skin Skin exam: Present: dry, intact Internal Medicine: Result - Labs CBC & Chem 7: 02/03/17 02:56 02/03/17 02:56 Labs: Short CBC 02/03/17 Range/Units 02:56 WBC 13.0 H (4.3-11.1) K/mcL Hgb 11.8 D (11.5-15.4) g/dL Hct 36.6 (35.3-44.9) % Plt Count 432 H (140-400) K/mcL Neutrophils # 9.0 H (1.6-8.9) K/mcL BMP 02/03/17 02:56 Sodium 136 Potassium 4.6 H Chloride 109 Carbon Dioxide 17 L BUN 22 H Creatinine 1.67 H Glucose 96 Calcium 9.1 Cardiac Enzymes 02/02/17 02/03/17 02/03/17 Range/Units 20:18 02:56 08:09 Troponin I 0.26 H* 0.23 H* 0.21 H* (0-0.03) ng/mL - ABG Interpretation ABG results: PT/INR, D-dimer PT 13.7 Seconds (9.4-12.1) H 02/02/17 20:18 Consult Discharge Plan - Plan Referrals: NO,PCP [Primary Care Provider] -
--- NOTE | 2017-02-03 13:40 | Electrocardiograph Report ---
[address] [place] [address] Test Date: 2017-02-02 Pat Name: Lizeth Lara Department: 102 Room: 2A Gender: F Physician Primary Care Sports Medicine: : 1960 Requested By: Germán Sewell Order Number: [id number] Reading MD: Viral Watkins MD Measurements Intervals [place] Rate: 75 P: 63 MO: 140 QRS: 10 QRSD: 92 T: 14 QT: 380 QTc: 409 Interpretive Statements SINUS RHYTHM PROBABLE INFERIOR MYOCARDIAL INFARCTION, OF INDETERMINATE AGE Electronically Signed On 02-03-2017 13:38:55 EDT by Viral Watkins MD
[2017-02-03 15:17] LABS: Adenovirus F 40/41 PCR Not detected (Not detect); Astrovirus PCR Not detected (Not detect); C.difficile Toxin A/B by PCR Not detected (Not detect); Campylobacter by PCR Not detected (Not detect); Cryptosporidium by PCR Not detected (Not detect); Cyclospora cayetanensis PCR Not detected (Not detect); E. coli O157 by PCR Not detected (Not detect); Entamoeba histolytica PCR Not detected (Not detect); Enteroaggregative E.coli(EAEC) Not detected (Not detect); Enteropathogenic E.coli(EPEC) Not detected (Not detect); Enterotoxigenic E.coli (ETEC) Not detected (Not detect); Giardia lamblia PCR Not detected (Not detect); Norovirus GI/GII PCR Not detected (Not detect); Plesiomonas shigelloides PCR Not detected (Not detect); Rotavirus A PCR Not detected (Not detect); Salmonella PCR Not detected (Not detect); Sapovirus PCR Not detected (Not detect); Shig/EnteroinvasiveE coli EIEC Not detected (Not detect); Shigalike tox-prod E coli STEC Not detected (Not detect); Vibrio PCR Not detected (Not detect); Vibrio cholerae PCR Not detected (Not detect); Yersinia enterocolitica PCR Not detected (Not detect)
[2017-02-03] MEDS ORDERED: Insulin LISPRO 300 UNITS/3 ML VIAL SQ SCH ×2 (21:00)
[2017-02-04 04:45] LABS: Basophils # 0.1 K/mcL (0.0-0.2); Basophils % 0.6 %; Eosinophils # 0.2 K/mcL (0.0-0.6); Eosinophils % 1.8 %; Hematocrit 33.4 % (35.3-44.9); Hemoglobin 10.9 g/dL (11.5-15.4); Immature Granulocytes % 0.9 % (0-4); Lymphocytes # 2.5 K/mcL (0.6-4.6); Lymphocytes % 24.4 %; Mean Corpuscular HGB Conc 32.6 g/dL (31.6-35.5); Mean Corpuscular Hemoglobin 29.2 pg (28.0-33.3); Mean Corpuscular Volume 89.5 fL (83.0-100.0); Mean Platelet Volume 10.2 fL (9.4-12.4); Monocytes # 0.7 K/mcL (0.0-1.3); Monocytes % 6.9 %; Neutrophils # 6.8 K/mcL (1.6-8.9); Platelet Count 365 K/mcL (140-400); Red Blood Count 3.73 M/mcL (3.82-4.97); Red Cell Distribution Width 13.5 % (11.5-14.5); Segmented Neutrophils % 65.4 %
[2017-02-04] MEDS: Famotidine 20 MG/2 ML VIAL IVP SCH ×2 (05:00→17:02)
[2017-02-04 05:01] LABS: Calcium 8.8 mg/dL (8.6-10.8); Potassium 4.5 mEq/L (3.5-4.5)
[2017-02-04 05:09] LABS: Bilirubin,Urine Negative (Negative); Blood,Urine Negative (Negative); Clarity,Urine Clear (Clear); Color,Urine Yellow (Yellow); Glucose,Urine (UA) Normal (Normal); Ketones,Urine Negative (Negative); Leukocyte Esterase,Urine Small (Negative); Nitrite,Urine Negative (Negative); PH,Urine 5.5 pH Units (5.0-8.0); Protein,Urine Negative (Neg-Trace); Specific Gravity,Urine 1.012 (1.010-1.025); Urobilinogen,Urine Normal (Normal)
[2017-02-04 05:11] LABS: Bacteria,Urine None Seen per hpf (None-Few); Hyaline Casts,Urine None Seen per lpf (None-Few); Squamous Epithelial Cell,Urine Moderate per lpf (None-Few)
[2017-02-04] MEDS: *HR* Heparin 5,000 UNIT/ML VIAL SQ SCH ×3 (08:12→23:36)
[2017-02-04] MEDS: Ranolazine 500 MG TAB.ER.12H PO SCH ×2 (08:12→20:15)
[2017-02-04] MEDS: Isosorbide MONOnitrate (24 HR) 60 MG TAB.ER.24H PO SCH (08:12)
[2017-02-04] MEDS: *HR* Ticagrelor 90 MG TABLET PO SCH ×2 (08:12→20:15)
[2017-02-04] MEDS: Aspirin 81 MG TAB.CHEW PO SCH (08:12)
[2017-02-04] MEDS: 0.9 % Sodium Chloride 1,000 ML IVC SCH (12:01)
--- NOTE | 2017-02-04 18:42 | Internal Med Progress Note ---
Date of Encounter: 02/04/17 Time of Encounter: 10:00 - Assessment and plan (1) Hypertension Current Visit: No Status: Chronic Assessment and plan: Blood pressure is stable, Continue home medications except ACEI/ARB because of acute kidney injury. Qualifiers: Hypertension type: essential hypertension Qualified Code(s): I10 - Essential (primary) hypertension (2) Smoker Current Visit: No Status: Chronic Assessment and plan: Patient quit smoking now. (3) DVT prophylaxis Current Visit: No Status: Acute Assessment and plan: Heparin subcutaneously (4) Cerebrovascular accident (CVA) due to embolism of posterior cerebral artery with infarctions of both occipital lobes Current Visit: No Status: Acute Assessment and plan: Recent history of CVA on last admission. Stable. Continue antiplatelet treatment. (5) Acute kidney injury Current Visit: Yes Status: Acute Assessment and plan: Patient has diarrhea, which may cause dehydration. Patient also has recent LHC with contrast use. - Continue hydration patient, closely monitor renal function (6) Elevated troponin Current Visit: Yes Status: Acute Assessment and plan: Patient has recent NSTEMI, troponin is on the downtrend but still higher than normal range. Patient denies chest pain (7) Dehydration Current Visit: Yes Status: Acute Assessment and plan: Due to diarrhea. Will give patient IV fluid and closely monitor BMP (8) CAD (coronary artery disease) Current Visit: Yes Status: Chronic Assessment and plan: S/P stent, stable, chest pain, continue DAPT, BB, and statin. Qualifiers: Coronary Disease-Associated Artery/Lesion type: [place] artery [place] vs. transplanted heart: [place] heart Associated angina: without angina Qualified Code(s): I25.10 - Atherosclerotic heart disease of [place] coronary artery without angina pectoris (9) Acute gastroenteritis Current Visit: Yes Status: Acute Assessment and plan: Patient has nausea and diarrhea, consider acute gastroenteritis. C Diff negative. Cont supportive treatment. - Time Spent With Patient 25 - 35 minutes - Subjective Interval history: Patient is a 56-year-old female admitted for acute gastroenteritis and acute kidney injury. Her past medical history is significant for CAD S/P recent LHC and stenting, hypertension, CVA. Patient was seen and examined. Resolved nausea. Still has diarrhea, with 2 loose bowel movement this morning. C Diff negative. Vitals are stable. Improved renal function. Continue supportive treatment with IV fluids. Closely monitor patient. - Constitutional Vitals: Temp Pulse Resp BP Pulse Ox 97.5 F L 62 18 120/64 98 02/04/17 15:37 02/04/17 15:37 02/04/17 15:37 02/04/17 15:37 02/04/17 15:37 General appearance: Present: A&O X 3, pleasant, no acute distress, answers questions appropriately - Head Head exam: Present: atraumatic, normocephalic - Eye Eye exam: Present: PERRL, conjuntiva pink, sclera anicteric Pupils: Present: PERRL - Neck Neck exam general surgery: Present: supple, trachea midline. Absent: lymphadenopathy - Respiratory Respiratory exam: Present: CTAB. Absent: accessory muscle use, rales, rhonchi, wheezes - Cardiovascular Cardiovascular exam: Present: RRR, +S1, +S2. Absent: diastolic murmur, gallop, rubs, systolic murmur - GI/Abdominal GI/Abdominal exam: Present: normal bowel sounds, soft, no peritoneal signs. Absent: distended, tenderness - Extremities Exam Extremities exam: Present: warm, radial pulses palpable and symetrical. Absent : calf tenderness, cyanotic, pedal edema - Neurological Exam Neurological exam: Present: CN II-XII intact, oriented X3, no focal deficits. Absent: pronater drift, facial droop, speech deficit - Skin Skin exam: Present: dry, intact Internal Medicine: Result - Labs CBC & Chem 7: 02/04/17 04:11 02/04/17 04:11 Labs: Short CBC 02/04/17 Range/Units 04:11 WBC 10.4 (4.3-11.1) K/mcL Hgb 10.9 L (11.5-15.4) g/dL Hct 33.4 L (35.3-44.9) % Plt Count 365 (140-400) K/mcL Neutrophils # 6.8 (1.6-8.9) K/mcL BMP 02/04/17 04:11 Sodium 138 Potassium 4.5 Chloride 113 H Carbon Dioxide 17 L BUN 18 Creatinine 1.33 H Glucose 89 Calcium 8.8 Urine 02/04/17 Range/Units 04:56 Urine Color Yellow (Yellow) Urine Clarity Clear (Clear) Urine pH 5.5 (5.0-8.0) pH Units Ur Specific [place] 1.012 (1.010-1.025) Urine Protein Negative (Neg-Trace) mg/dL Urine Glucose (UA) Normal (Normal) mg/dL - ABG Interpretation ABG results: PT/INR, D-dimer PT 13.7 Seconds (9.4-12.1) H 02/02/17 20:18 Consult Discharge Plan - Plan Referrals: Yohan Mejía DO [Resident] - 02/13/17 10:00 am (Please follow up as schedule to get establish for pcp...)
[2017-02-05] MEDS: 0.9 % Sodium Chloride 1,000 ML IVC SCH (05:44)
[2017-02-05] MEDS: Famotidine 20 MG/2 ML VIAL IVP SCH (05:45)
[2017-02-05 06:13] LABS: Basophils # 0.1 K/mcL (0.0-0.2); Basophils % 0.6 %; Eosinophils # 0.2 K/mcL (0.0-0.6); Hematocrit 32.1 % (35.3-44.9); Hemoglobin 10.4 g/dL (11.5-15.4); Immature Granulocytes % 0.6 % (0-4); Lymphocytes % 22.5 %; Mean Corpuscular HGB Conc 32.4 g/dL (31.6-35.5); Mean Corpuscular Hemoglobin 28.8 pg (28.0-33.3); Mean Corpuscular Volume 88.9 fL (83.0-100.0); Mean Platelet Volume 10.2 fL (9.4-12.4); Monocytes # 0.7 K/mcL (0.0-1.3); Monocytes % 7.9 %; Neutrophils # 5.9 K/mcL (1.6-8.9); Platelet Count 358 K/mcL (140-400); Red Blood Count 3.61 M/mcL (3.82-4.97); Red Cell Distribution Width 13.5 % (11.5-14.5); Segmented Neutrophils % 66.4 %
[2017-02-05 06:21] LABS: Potassium 4.1 mEq/L (3.5-4.5)
[2017-02-05 06:59] VITALS: BP 116/72
[2017-02-05] MEDS: Aspirin 81 MG TAB.CHEW PO SCH (08:11)
[2017-02-05] MEDS: Ranolazine 500 MG TAB.ER.12H PO SCH (08:11)
[2017-02-05] MEDS: *HR* Ticagrelor 90 MG TABLET PO SCH (08:11)
[2017-02-05] MEDS: *HR* Heparin 5,000 UNIT/ML VIAL SQ SCH (08:11)
[2017-02-05] MEDS: Isosorbide MONOnitrate (24 HR) 60 MG TAB.ER.24H PO SCH (08:11)
--- NOTE | 2017-02-05 10:07 | Discharge Summary ---
Date of Encounter: 02/05/17 Time of Encounter: 09:00 - Discharge Diagnosis (1) Hypertension Priority: Secondary Status: Chronic Qualifiers: Hypertension type: essential hypertension Qualified Code(s): I10 - Essential (primary) hypertension (2) Smoker Priority: Secondary Status: Chronic (3) DVT prophylaxis Priority: Secondary Status: Acute (4) Cerebrovascular accident (CVA) due to embolism of posterior cerebral artery with infarctions of both occipital lobes Priority: Secondary Status: Acute (5) Acute kidney injury Priority: Primary Status: Acute (6) Elevated troponin Priority: Secondary Status: Acute (7) Dehydration Priority: Primary Status: Acute (8) CAD (coronary artery disease) Priority: Secondary Status: Chronic Qualifiers: Coronary Disease-Associated Artery/Lesion type: [place] artery [place] vs. transplanted heart: [place] heart Associated angina: without angina Qualified Code(s): I25.10 - Atherosclerotic heart disease of [place] coronary artery without angina pectoris (9) Acute gastroenteritis Priority: Primary Status: Acute - Discharge Medications Prescriptions: Loperamide [Imodium] 2 mg PO Q4HR PRN #7 capsule PRN Reason: Diarrhea Potassium Chloride 20 meq PO DAILY #14 tab.er.prt Sodium Bicarbonate 650 mg PO TID #21 tablet Home Medications: Aspirin 81 mg PO DAILY #30 tab.chew 01/25/17 [Rx] Atorvastatin [Lipitor] 80 mg PO HS #60 tablet 01/25/17 [Rx] Isosorbide MONOnitrate (24 HR) [Imdur] 60 mg PO DAILY #30 tab.er.24h 01/25/17 [ Rx] Metoprolol [Lopressor] 12.5 mg PO BID #60 tablet 01/25/17 [Rx] Nitroglycerin 0.4 mg SL Q5MIN PRN #7 tab.subl 01/25/17 [Rx] Ranolazine [Ranexa] 500 mg PO BID #60 tab.er.12h 01/25/17 [Rx] Ticagrelor [Brilinta] 90 mg PO BID #60 tablet 01/25/17 [Rx] Loperamide [Imodium] 2 mg PO Q4HR PRN #7 capsule 02/05/17 [Rx] Potassium Chloride 20 meq PO DAILY #14 tab.er.prt 02/05/17 [Rx] Sodium Bicarbonate 650 mg PO TID #21 tablet 02/05/17 [Rx] Allergies/Adverse Reactions: Allergies No Known Allergies Allergy (Verified 09/26/16 09:17) - Notes to Outpatient Provider 1. Patient has acute kidney injury, creatinine level trended down but not normalized (1.23 today). Her home medication lisinopril is on hold. Patient was told to repeated BMP in 1 week, please follow-up. 2. Patient admitted with hyperkalemia (K 5.3 upon admission), her potassium chloride dose has been decreased to 20 mEq daily, please follow-up potassium level. Date of admission: 02/02/17 19:39 Primary care physician: PCP NO Discharging clinician: Mabel Mejias Anticipated date of discharge: 02/05/17 - Patient Status Disposition: Home, Self-Care Condition: Good Functional capacity at discharge: independent ambulation Overall status at discharge: patient is progressing back to baseline - Discharge Instructions Follow Up With: Yohan Mejía DO [Resident] - 02/13/17 10:00 am (Please follow up as schedule to get establish for pcp...) - Diet and Activity Activity: increase activity as tolerated Diet: advance to your usual diet Interval History: Ms. Lara is a 56 year old female hypertension, recent CVA, recent NSTEMI status post PCI, hyperlipidemia and recent history of left hemianopsia. She presents to the ED with complaints of generalized weakness, fatigue and nausea. Patient states she started having the symptoms this afternoon. She states that when she was admitted about a week ago, prior to her [place] she had similar symptoms. Patient states she has been taking all her medications regularly. She followed up with her director of corporate sales Dr. Watkins about one day ago and was recommended a six-month outpatient follow-up. Patient also complained of some transient shortness of breath which is now resolved. Patient denies chest pain. She did have some right shoulder pain. She denies palpitations denies headaches denies lightheadedness denies abdominal pain no diarrhea or vomiting. On examination patient is awake and alert. Not in any distress. Able to provide history. Her family members are at bedside. Patient states her symptoms have now slightly improved. She has no other acute complaints at present. No other associated symptoms. EKG does not show any acute ST-T changes only changes. Creatinine is slightly elevated at 1.89 and white count was also elevated at 14.6. Patient's troponin is elevated at 0.34 and is trending down. We will trend troponins. Patient is being admitted for dehydration and history of present illness and nausea. Chest x-ray does not show any acute process. Patient and family have been explained about the condition and care. Understood and agreed. No one answered questions. Hospital course: Ms. Lara is a 56 year old female admitted for nausea vomiting and diarrhea, diagnosed as acute gastroenteritis. Patient also found acute kidney injury. Patient was given IV fluid, and the symptomatic treatment. C. difficile test are negative. After treatment, patient's diarrhea has stopped, no further nausea or vomiting. Her kidney function has improved. Patient feels fine, will discharge home and follow-up BMP in 1 week with PCP. I saw and examined the patient today. She is awake alert, oriented 3. Denies nausea, no diarrhea over last night and this morning. Vital signs stable. Renal function has improved with today's creatinine level 1.23. Patient will discharge home and follow up with PCP as outpatient. Lab shows a mild low bicarbonate, bicarbonate level 18 today, will add sodium bicarbonate 650 mg 3 times a day for 7 days. Patient was educated to hydrate herself well, avoid dehydration. She was also educated to avoid nephrotoxic medication include NSAID, Bactrim, ACEI/ARB, Diuretics, etc. she was told that her lisinopril is on hold now. - Time Spent with Patient Total time spent providing and/or coordinating discharge services: 40 min Greater than 30 minutes - Constitutional Vitals: Temp Pulse Resp BP Pulse Ox 98 F 56 20 116/72 96 02/05/17 06:58 02/05/17 06:58 02/05/17 06:58 02/05/17 06:58 02/05/17 06:58 General appearance: Present: A&O X 3, pleasant, no acute distress, answers questions appropriately - Head Head exam: Present: atraumatic, normocephalic - Eye Eye exam: Present: PERRL, conjuntiva pink, sclera anicteric Pupils: Present: PERRL - Neck Neck exam general surgery: Present: supple, trachea midline. Absent: lymphadenopathy - Respiratory Respiratory exam: Present: CTAB. Absent: accessory muscle use, rales, rhonchi, wheezes - Cardiovascular Cardiovascular exam: Present: RRR, +S1, +S2. Absent: diastolic murmur, gallop, rubs, systolic murmur - GI/Abdominal GI/Abdominal exam: Present: normal bowel sounds, soft, no peritoneal signs. Absent: distended, tenderness - Extremities Exam Extremities exam: Present: warm, radial pulses palpable and symetrical. Absent : calf tenderness, cyanotic, pedal edema - Neurological Exam Neurological exam: Present: CN II-XII intact, oriented X3, no focal deficits. Absent: pronater drift, facial droop, speech deficit - Skin Skin exam: Present: dry, intact
[2017-02-05] MEDS ORDERED: Famotidine 20 MG TABLET PO SCH (16:30)
== END 2017-02-05 12:08 | disposition home or self-care (01) | DRG 682 ==
LOC: 2ANU 15:53 → EMEROO 15:53 → 2ANU 18:30
PROVIDERS: ADMIT Nurse Practitioner Family; ATTEND Internal Medicine

== ENCOUNTER 2017-11-22 06:54 | Inpatient (IN) ==
[2017-11-22] MEDS ORDERED: Aspirin 81 MG TAB.CHEW PO ONE (07:09)
[2017-11-22] MEDS ORDERED: Nitroglycerin 0.4 MG TAB.SUBL SL ONE (07:09)
--- NOTE | 2017-11-22 07:16 | Emergency Department Note ---
Disposition Clinical Impression: NSTEMI (non-ST elevated myocardial infarction) Disposition: Admitted As Inpatient Condition: Fair Referrals: Yohan Mejía DO [Primary Care Provider] - Forms: ED Satisfaction Letter Time of Disposition: 08:58 Chest Pain HPI - General Stated Complaint: "Make sure I didn't have a heart attack" Time Seen by Provider: 11/22/17 07:04 Source: patient Limitations: no limitations Vital Signs Reviewed: Yes Nursing Notes Reviewed: Yes - History of Present Illness HPI Narrative: Patient is a 57-year-old female with a history of hypertension, CVA, CAD with 2 stents who presents to [facility] ED with a chief complaint of left jaw and left arm pain. States her symptoms started yesterday and were intermittent throughout the day. She then woke up this morning and told her daughter about it who made her come get checked out. Patient denies any nausea , vomiting, fever or chills. No recent cough or cold. States she had a "funny feeling in the chest" but no actual pain. No abdominal pain, problems with urination or bowel movements. Most recent heart catheter with stent placement was 11 months ago at our facility. Pt complaint: chest pain Onset (ago): day(s) (1) Duration: intermittent Severity: none Severity scale (1-10): 0 Pain Radiation: LUE, neck Improves with: nothing Worsens with: nothing Associated symptoms: Denies: nausea, vomiting, dyspnea, fever, cough Treatments prior to arrival chest pain: none - Related Data Previous Rx's Medication Instructions Recorded Aspirin 81 mg PO DAILY #30 tab.chew 01/25/17 Atorvastatin [Lipitor] 80 mg PO HS #60 tablet 01/25/17 Isosorbide MONOnitrate (24 HR) 60 mg PO DAILY #30 tab.er.24h 01/25/17 [Imdur] Metoprolol [Lopressor] 12.5 mg PO BID #60 tablet 01/25/17 Nitroglycerin 0.4 mg SL Q5MIN PRN #7 tab.subl 01/25/17 Ranolazine [Ranexa] 500 mg PO BID #60 tab.er.12h 01/25/17 Ticagrelor [Brilinta] 90 mg PO BID #60 tablet 01/25/17 Loperamide [Imodium] 2 mg PO Q4HR PRN #7 capsule 02/05/17 Potassium Chloride 20 meq PO DAILY #14 tab.er.prt 02/05/17 Sodium Bicarbonate 650 mg PO TID #21 tablet 02/05/17 Allergies Allergy/AdvReac Type Severity Reaction Status Date / Time No Known Allergies Allergy Verified 11/22/17 07:00 All systems ED: reviewed and negative except as stated. Chest Pain PMH - Past Medical History Medical history: Reports: coronary artery disease, CVA, hyperlipidemia, hypertension, myocardial infarction, renal disease Surgical history: Reports: other Psychiatric history: Reports: no psych history CONVERTIBLE SOFA BEDSPRING TESTER history: Reports: no CONVERTIBLE SOFA BEDSPRING TESTER history - Social History Smoking Status: Former smoker Alcohol use: Reports: none Drug use: Reports: none Physical Exam - General Limitations: no limitations General appearance: alert - Head Head exam: atraumatic, normocephalic, normal inspection - Eye Eye exam: Present: normal appearance, EOMI - ENT ENT exam: normal exam, normal oropharynx, mucous membranes moist - Neck Neck exam: Present: normal inspection, full ROM, trachea midline - Chest Chest inspection: Present: normal inspection, symmetric chest wall rise - Respiratory Respiratory exam: Present: normal lung sounds bilaterally - Cardiovascular Cardiovascular exam: Present: regular rate, normal rhythm, normal heart sounds - Abdominal Exam Abdominal exam: Present: soft, Non-Tender. Absent: tenderness, distention, guarding, rebound, rigidity - Extremities Exam Extremities exam: Present: normal inspection, full ROM. Absent: tenderness, pedal edema - Back Exam Back exam: Present: normal inspection, full ROM. Absent: tenderness - Neurological Exam Neurological exam: Present: alert, oriented X3 - Psychiatric Psychiatric exam: Present: normal affect, normal mood - Skin Skin exam: Present: warm, dry, intact, normal color Course Course Narrative: Patient seen and examined. Chest pain with history of CAD and hypertension. We will do cardiopulmonary workup. Patient asymptomatic currently. 324 mg of aspirin given. Nitroglycerin ordered prn if patient starts having any chest pain. - Reevaluation(s) Reevaluation #1: Labwork shows a troponin elevation of 0.39. Heparin drip ordered along with coags. I discussed with roll edge machine operator Dr. Patricio who states they will see the patient in consultation. I discussed with hospitalist Dr. Hannah who has accepted patient for admission. Time: 08:57 Vital Signs Temperature 97.7 F 11/22/17 07:01 Pulse Rate 98 11/22/17 07:01 Respiratory Rate 18 11/22/17 07:01 Blood Pressure 155/86 11/22/17 07:01 O2 Sat by Pulse Oximetry 98 11/22/17 07:01 Temperature 97.7 F 11/22/17 07:01 Pulse Rate 54 11/22/17 08:42 Respiratory Rate 18 11/22/17 08:42 Blood Pressure 150/84 11/22/17 08:42 O2 Sat by Pulse Oximetry 99 11/22/17 08:42 Oxygen Delivery Oxygen Delivery Room Air Chest Pain - Medical Records Medical records reviewed: Yes I reviewed the patient's medical records. - Lab Data Lab results reviewed: Yes I reviewed the patient's lab results. Result diagrams: 11/22/17 07:19 11/22/17 07:19 Lab Results 11/22/17 11/22/17 11/22/17 Range/Units 07:19 07:19 07:19 WBC 9.2 (4.3-11.1) K/mcL RBC 3.95 (3.82-4.97) M/mcL Hgb 12.2 (11.5-15.4) g/dL Hct 37.4 (35.3-44.9) % MCV 94.7 (83.0-100.0) fL MCH 30.9 (28.0-33.3) pg MCHC 32.6 (31.6-35.5) g/dL RDW 13.5 (11.5-14.5) % Plt Count 300 (140-400) K/mcL MPV 10.2 (9.4-12.4) fL Immature Gran % 0.3 (0-4) % Seg Neutrophils % 62.3 % Lymphocytes % 28.3 % Monocytes % 6.4 % Eosinophils % 2.2 % Basophils % 0.5 % Neutrophils # 5.7 (1.6-8.9) K/mcL Lymphocytes # 2.6 (0.6-4.6) K/mcL Monocytes # 0.6 (0.0-1.3) K/mcL Eosinophils # 0.2 (0.0-0.6) K/mcL Basophils # 0.1 (0.0-0.2) K/mcL PT 10.4 (9.4-12.1) Seconds INR 1.0 APTT 30.2 (26.0-36.0) Seconds Sodium 137 (136-145) mEq/L Potassium 4.0 (3.5-5.1) mEq/L Chloride 106 (98-107) mEq/L Carbon Dioxide 23 (23-29) mEq/L BUN 18 (6-20) mg/dL Creatinine 1.32 H (0.60-1.20) mg/dL Est GFR ( Amer) 50 L (> 60) Est GFR (Non-Af Amer) 41 L (> 60) BUN/Creatinine Ratio 14 (6-26) Glucose 116 H (70-105) mg/dL Calculated Osmolality 287 (280-300) Calcium 9.2 (8.6-10.3) mg/dL Troponin I 0.39 H* (< 0.04) ng/mL - Radiology Data Radiology results reviewed: Yes I reviewed the patient's radiology results. Chest X-Ray 11/22/17 07:09 IMPRESSION: No acute cardiopulmonary disease. D/ / Girma Farfan MD / Girma Farfan MD Interpreting Provider: Girma Farfan MD - EKG Data EKG attestation: Yes I reviewed and interpreted this EKG. EKG results narrative: EKG done at 703 shows normal sinus rhythm with a rate of [address] elevation. Small degree of ST depression noted in leads V4 through V6. Appears unchanged from prior EKG done 02/02/2017. Heart Score - Score History: Moderately Suspicious EKG: Non Specific repolarisation Disturbance Age: 45-65 Risk Factors: Equal/Greater than 3 risk factor or history of atherosclerotic disease Troponin: Greater than 3x normal limit HEART Score Total: 7
[2017-11-22 07:32] LABS: Basophils # 0.1 K/mcL (0.0-0.2); Basophils % 0.5 %; Eosinophils # 0.2 K/mcL (0.0-0.6); Eosinophils % 2.2 %; Hematocrit 37.4 % (35.3-44.9); Hemoglobin 12.2 g/dL (11.5-15.4); Immature Granulocytes % 0.3 % (0-4); Lymphocytes # 2.6 K/mcL (0.6-4.6); Lymphocytes % 28.3 %; Mean Corpuscular HGB Conc 32.6 g/dL (31.6-35.5); Mean Corpuscular Hemoglobin 30.9 pg (28.0-33.3); Mean Corpuscular Volume 94.7 fL (83.0-100.0); Mean Platelet Volume 10.2 fL (9.4-12.4); Monocytes # 0.6 K/mcL (0.0-1.3); Monocytes % 6.4 %; Neutrophils # 5.7 K/mcL (1.6-8.9); Platelet Count 300 K/mcL (140-400); Red Blood Count 3.95 M/mcL (3.82-4.97); Red Cell Distribution Width 13.5 % (11.5-14.5); Segmented Neutrophils % 62.3 %
[2017-11-22 07:54] LABS: Calcium 9.2 mg/dL (8.6-10.3)
[2017-11-22 08:00] LABS: Troponin I 0.39 ng/mL (< 0.04)
[2017-11-22] MEDS ORDERED: *HR* Heparin 5,000 UNIT/ML VIAL IVP ONE (08:01)
[2017-11-22] MEDS ORDERED: *HR* Heparin 5,000 UNIT/ML VIAL IVP PRN ×2 (08:01)
[2017-11-22 08:17] LABS: Prothrombin Time 10.4 Seconds (9.4-12.1)
[2017-11-22 08:20] LABS: Activated Partial Thrombo Time 30.2 Seconds (26.0-36.0)
[2017-11-22] MEDS: Heparin 25,000 UNIT/500 ML D5W 25,000 UNIT/500 ML BAG IVC SCH (08:39)
--- NOTE | 2017-11-22 08:41 | Emergency Department Note ---
Disposition Clinical Impression: NSTEMI (non-ST elevated myocardial infarction) Disposition: Admitted As Inpatient Referrals: Yoahn Mejía DO [Primary Care Provider] - Forms: ED Satisfaction Letter General Adult HPI - General Chief complaint: ED Chest Pain Stated complaint: "Make sure I didn't have a heart attack" Time Seen by Provider: 11/22/17 07:04 Source: patient Limitations: no limitations - History of Present Illness Pain Scale: 0 - Related Data Previous Rx's Medication Instructions Recorded Aspirin 81 mg PO DAILY #30 tab.chew 01/25/17 Atorvastatin [Lipitor] 80 mg PO HS #60 tablet 01/25/17 Isosorbide MONOnitrate (24 HR) 60 mg PO DAILY #30 tab.er.24h 01/25/17 [Imdur] Metoprolol [Lopressor] 12.5 mg PO BID #60 tablet 01/25/17 Nitroglycerin 0.4 mg SL Q5MIN PRN #7 tab.subl 01/25/17 Ranolazine [Ranexa] 500 mg PO BID #60 tab.er.12h 01/25/17 Ticagrelor [Brilinta] 90 mg PO BID #60 tablet 01/25/17 Loperamide [Imodium] 2 mg PO Q4HR PRN #7 capsule 02/05/17 Potassium Chloride 20 meq PO DAILY #14 tab.er.prt 02/05/17 Sodium Bicarbonate 650 mg PO TID #21 tablet 02/05/17 Allergies Allergy/AdvReac Type Severity Reaction Status Date / Time No Known Allergies Allergy Verified 11/22/17 07:00 Past Medical History - Past Medical History Medical history: Reports: coronary artery disease, CVA, hyperlipidemia, hypertension, myocardial infarction, renal disease Surgical history: Reports: other Psychiatric history: Reports: no psych history ORGAN TUNER ELECTRONIC history: Reports: no ORGAN TUNER ELECTRONIC history - Social History Smoking Status: Former smoker Smokeless Tobacco Status: No Alcohol use: Reports: none Drug use: Reports: none Physical Exam - General Limitations: no limitations General appearance: alert Course Vital Signs Temperature 97.7 F 11/22/17 07:01 Pulse Rate 98 11/22/17 07:01 Respiratory Rate 18 11/22/17 07:01 Blood Pressure 155/86 11/22/17 07:01 O2 Sat by Pulse Oximetry 98 11/22/17 07:01 Temperature 97.7 F 04/14/18 07:01 Pulse Rate 63 11/22/17 07:38 Respiratory Rate 18 11/22/17 07:38 Blood Pressure 135/91 11/22/17 07:42 O2 Sat by Pulse Oximetry 99 11/22/17 07:38 Oxygen Delivery Oxygen Delivery Room Air Medical Decision Making - Lab Data Result diagrams: 11/22/17 07:19 11/22/17 07:19 Lab Results 11/22/17 11/22/17 11/22/17 Range/Units 07:19 07:19 07:19 WBC 9.2 (4.3-11.1) K/mcL RBC 3.95 (3.82-4.97) M/mcL Hgb 12.2 (11.5-15.4) g/dL Hct 37.4 (35.3-44.9) % MCV 94.7 (83.0-100.0) fL MCH 30.9 (28.0-33.3) pg MCHC 32.6 (31.6-35.5) g/dL RDW 13.5 (11.5-14.5) % Plt Count 300 (140-400) K/mcL MPV 10.2 (9.4-12.4) fL Immature Gran % 0.3 (0-4) % Seg Neutrophils % 62.3 % Lymphocytes % 28.3 % Monocytes % 6.4 % Eosinophils % 2.2 % Basophils % 0.5 % Neutrophils # 5.7 (1.6-8.9) K/mcL Lymphocytes # 2.6 (0.6-4.6) K/mcL Monocytes # 0.6 (0.0-1.3) K/mcL Eosinophils # 0.2 (0.0-0.6) K/mcL Basophils # 0.1 (0.0-0.2) K/mcL PT 10.4 (9.4-12.1) Seconds INR 1.0 APTT 30.2 (26.0-36.0) Seconds Sodium 137 (136-145) mEq/L Potassium 4.0 (3.5-5.1) mEq/L Chloride 106 (98-107) mEq/L Carbon Dioxide 23 (23-29) mEq/L BUN 18 (6-20) mg/dL Creatinine 1.32 H (0.60-1.20) mg/dL Est GFR ( Amer) 50 L (> 60) Est GFR (Non-Af Amer) 41 L (> 60) BUN/Creatinine Ratio 14 (6-26) Glucose 116 H (70-105) mg/dL Calculated Osmolality 287 (280-300) Calcium 9.2 (8.6-10.3) mg/dL Troponin I 0.39 H* (< 0.04) ng/mL Attestation Statement - Attestation Attestation: I examined this patient and my medical decision-making was reviewed with the Resident Physician. I agree with the documented findings, disposition and treatment plan as described except to the extent set forth below. 57 year old female prsentse to the ED with complaints of jaw and arm pain and state that she was most recenty stented one year ago with 2 stents. she states that she had 3 vessel disease which were 99% occulded and they only stentsed 2. She has an elevated troponin today of .39 wew ill start heparin therapy. EKG does not show any new ischemic changes. We will consult with carsd and admit to medicne.
[2017-11-22] MEDS ORDERED: Naloxone 0.4 MG/ML INJ IVP PRN (09:36)
[2017-11-22] MEDS: 0.9 % Sodium Chloride 1,000 ML IVC SCH (11:25)
--- NOTE | 2017-11-22 12:18 | Internal Med History&Physical ---
Date of Encounter: 11/22/17 Time of Encounter: 12:14 Internal Medicine - H&P: HPI Chief complaint: jaw discomfort History of present illness: Ms. Lara is a 57 year old female history of coronary disease, myocardial infarction was also complaint of jaw discomfort. Patient notes she was out in her yard doing physical activity and had some discomfort in her jaw and bilateral shoulders. Patient notes discomfort would last seconds and resolves spontaneously. Patient notes when she had her last myocardial infarction see experience extreme fatigue. At this time patient notes her jaw discomfort has resolved. She currently denies chest pain, shortness of breath or palpitations. Denies fever, chills or rigors. She denies abdominal pain, nausea and vomiting. She denies dysuria or diarrhea. Patient to be admitted for further evaluation. Past Med Surg Social Fam HX - Past Medical History Medical history: coronary artery disease, CVA, hyperlipidemia, hypertension, myocardial infarction, renal disease Psychiatric history: no psych history - Past Surgical History Surgical History: other - Social History Smoking Status: Former smoker Smokeless Tobacco Status: No Alcohol use: none Drug use: none - Additional Family History Additional family history: Reviewed and negative this particular admission Internal Medicine - H&P: Meds Aspirin 81 mg PO DAILY #30 tab.chew 01/25/17 [Rx] Atorvastatin [Lipitor] 80 mg PO HS #60 tablet 01/25/17 [Rx] Isosorbide MONOnitrate (24 HR) [Imdur] 60 mg PO DAILY #30 tab.er.24h 01/25/17 [ Rx] Metoprolol [Lopressor] 12.5 mg PO BID #60 tablet 01/25/17 [Rx] Nitroglycerin 0.4 mg SL Q5MIN PRN #7 tab.subl 01/25/17 [Rx] Ranolazine [Ranexa] 500 mg PO BID #60 tab.er.12h 01/25/17 [Rx] Ticagrelor [Brilinta] 90 mg PO BID #60 tablet 01/25/17 [Rx] Lisinopril-HCTZ 10-12.5 [Prinzide 10-12.5] 1 tab PO DAILY 11/22/17 [History] 3 Allergy/AdvReac Type Severity Reaction Status Date / Time No Known Allergies Allergy Verified 11/22/17 07:00 All Systems PM: A 10-system review of systems was performed and is negative for pertinent findings except as documented above in the HPI. Review of systems: All systems have been reviewed and negative except for as mentioned in history of present illness - Constitutional Vitals: Temp Pulse Resp BP Pulse Ox 97.8 F 58 18 126/84 98 11/22/17 12:06 11/22/17 12:06 11/22/17 12:06 11/22/17 12:06 11/22/17 12:06 Vital signs as above Gen.: Apparent distress, cooperative, able to speak in full senses HEENT: Atraumatic, normocephalic, extraocular movements are intact, PERRL, there is no scleral icterus Neck: No JVD no pain to palpation for range of motion Heart: Normal sinus 2 regular rate and rhythm Lungs: Clear to auscultation Abdomen: Soft, depressible, nontender, nondistended, positive bowel sounds, no guarding, no rigidity Muscular skeletal: Patient will extremities freely, pinna palpation of large joints, no calf tenderness, no pedal edema Neuro: Nonfocal, cranial nerves are intact Skin:intact no new rash Internal Med - H&P Results - Labs CBC & Chem 7: 11/22/17 07:19 11/22/17 07:19 Labs: Cardiac Enzymes 11/22/17 Range/Units 09:54 Troponin I 0.48 H* (< 0.04) ng/mL - Assessment and plan (1) Elevated troponin Current Visit: No Status: Acute Assessment and plan: Continue his heparin infusion, aspirin, statin. Defer cardiac medications to cardiology Cycle serial troponins Nothing by mouth Cardiology consultation appreciated (2) Hypertension Current Visit: No Status: Chronic Assessment and plan: Recent appropriate home medications Qualifiers: Hypertension type: essential hypertension Qualified Code(s): I10 - Essential (primary) hypertension (3) Cerebral infarct Current Visit: No Status: Acute Assessment and plan: History of peripheral vision loss in the left eye due to previous CVA Qualifiers: Qualified Code(s): I63.9 - Cerebral infarction, unspecified (4) DVT prophylaxis Current Visit: No Status: Acute Assessment and plan: on heparin - Time Spent With Patient Total time spent is greater than 50% in coordination of care (as documented) at patient's floor/unit and/or counseling patient:
--- NOTE | 2017-11-22 12:18 | Cardiology Consult Note ---
<Sakshi Segovia Leroy - Last Filed: 11/22/17 12:41> Date of Encounter: 11/22/17 Time of Encounter: 12:00 Assessment and Plan (1) NSTEMI (non-ST elevated myocardial infarction) Current Visit: Yes Status: Acute Troponin 0.39, 0.48. Typical chest pain symptoms. Continue heparin gtt. Had episode of jaw/arm pain this AM, will start IV NTG gtt. Continue asa, statin, brilinta. Check TTE. Cardiac rehab. If remains chest pain free, plan for LHC on Friday. (2) CVA (cerebral vascular accident) Current Visit: No Status: Chronic hx of CVA prior to STEMI last January. 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 Plan as above--cont asa, statin, BB, nitrates. Uninterrupted DAPT for a minimum of 1 year Qualifiers: Coronary Disease-Associated Artery/Lesion type: nondalton artery [place] vs. transplanted heart: nondalton heart Associated angina: without angina Qualified Code(s): I25.10 - Atherosclerotic heart disease of nondalton coronary artery without angina pectoris Discussion w patient/family: The assessment and plan as outlined above was discussed with the patient and/or family members who expressed understanding and agreement. All questions were answered. Thank you for involving us in the care of your patient. Please call with any questions. The patient will be discussed and reviewed with Dr. Patricio, changes to be made accordingly. History of Present Illness Consult date: 11/22/17 Requesting physician: Yahaira Coe Consult reason: NSTEMI Chief complaint: Jaw/arm pain History of present illness: Ms. Lara is a 57 year old female with PMHx significant for prior IN s/p PCI, CVA, PAD, HTN, and tobacco dependency who presented to the ED with complaints of intermittent jaw and arm pain. Patient reports symptoms started yesterday afternoon after moving a dog kennel. Jaw/arm pain last only moments and resolve without intervention. Associated symptoms include diaphoresis. She felt worse this morning which prompted ED evaluation. Initial troponin 0.39. No significant ST/T wave abnormalities noted per ECG. Prior CV testing: TTE 01/23/17: LVEF 55-60%, mild cLVH, moderate LVDD, no significant valvular dysfunction LHC 01/23/17: s/p successful PTCA/EVELIO to ostial and mid RCA; residual dRCA disease; otherwise moderate non-obstructive CAD (20% pLAD, 50% mLAD, 60% mLCx). Past Med Surg Social Fam HX - Past Medical History Attestation: Yes The following information was validated with the patient. Source: patient Medical history: coronary artery disease, CVA, hyperlipidemia, hypertension, myocardial infarction, renal disease Psychiatric history: no psych history - Past Surgical History Surgical History: angioplasty/stent, other - Social History Smoking Status: Former smoker Smokeless Tobacco Status: No Alcohol use: none Drug use: none Medications and Allergies Aspirin 81 mg PO DAILY #30 tab.chew 01/25/17 [Rx] Atorvastatin [Lipitor] 80 mg PO HS #60 tablet 01/25/17 [Rx] Isosorbide MONOnitrate (24 HR) [Imdur] 60 mg PO DAILY #30 tab.er.24h 01/25/17 [ Rx] Metoprolol [Lopressor] 12.5 mg PO BID #60 tablet 01/25/17 [Rx] Nitroglycerin 0.4 mg SL Q5MIN PRN #7 tab.subl 01/25/17 [Rx] Ranolazine [Ranexa] 500 mg PO BID #60 tab.er.12h 01/25/17 [Rx] Ticagrelor [Brilinta] 90 mg PO BID #60 tablet 01/25/17 [Rx] Lisinopril-HCTZ 10-12.5 [Prinzide 10-12.5] 1 tab PO DAILY 11/22/17 [History] 3 Allergy/AdvReac Type Severity Reaction Status Date / Time No Known Allergies Allergy Verified 11/22/17 07:00 All Systems Review: The remainder of the systems were reviewed and are negative - Cardiovascular Cardiovascular: as per HPI Physical Examination Vital Signs, Last 4 Hours Temp Pulse Resp BP Pulse Ox 11/22/17 12:06 97.8 F 58 18 126/84 98 11/22/17 10:22 97 11/22/17 09:45 97.8 F 58 18 147/85 97 11/22/17 09:17 18 152/87 General: Conversant, No Apparent Distress HEENT: Atraumatic, Normocephaly, Mucus Membranes Moist Cardiac: Reg Rate and Rhythm, Normal S1 and S2 Lungs: Normal Breath Sounds Neuro: Alert and responsive Abdomen: Soft Skin: No rashes noted on visualized skin Musculoskeletal: No Chest Wall Tenderness Extremities: No Edema, Normal Pulses Results 11/22/17 07:19 11/22/17 07:19 Lab Results 11/22/17 09:54 Troponin I 0.48 H* Active Medications Aspirin (Aspirin) 81 mg PO DAILY [facility] Stop: 05/25/18 09:01 Atorvastatin Calcium (Lipitor) 80 mg PO HS [facility] Stop: 05/24/18 21:01 Heparin Sodium (Porcine) (Heparin) 4,000 unit IVP Q6HR PRN PRN Reason: SEE COMMENTS Stop: 05/24/18 08:02 Heparin Sodium (Porcine) (Heparin) 2,000 unit IVP Q6H PRN PRN Reason: SEE COMMENTS Stop: 05/24/18 08:02 Heparin Sodium/Dextrose (Heparin 25,000 Unit/500 Ml D5w) 25,000 unit in 500 mls @ 19.595 mls/hr IVC .Q24H SHANTAL; 12 UNIT/KG/HR PRN Reason: Protocol Stop: 05/24/18 08:16 Last Admin: 11/22/17 08:39 Dose: 12 unit/kg/hr, 19.595 mls/hr Sodium Chloride (0.9 % Sodium Chloride) 1,000 mls @ 75 mls/hr IVC .[id number] [facility] Stop: 05/24/18 11:31 Last Admin: 11/22/17 11:25 Dose: 75 mls/hr Nitroglycerin (Nitroglycerin Premix 25 Mg/250 Ml) 25 mg in 250 mls @ 0 mls/hr IVC .Q0M SHANTAL; Per Protocol PRN Reason: Protocol Stop: 05/24/18 12:31 Metoprolol Tartrate (Lopressor) 12.5 mg PO BID [facility] Stop: 05/24/18 21:01 Naloxone HCl (Narcan) 0.4 mg IVP Q2MIN PRN PRN Reason: SEE COMMENTS Stop: 05/24/18 09:37 Ranolazine (Ranexa) 500 mg PO BID [facility] Stop: 05/24/18 21:01 - Imaging and Cardiology Echo: report reviewed Cardiac cath: report reviewed - EKG Interpretation EKG results cardiology: personally reviewed Consult Discharge Plan - Plan Referrals: Yohan Mejía DO [Primary Care Provider] - <PatricioGaston J - Last Filed: 11/23/17 21:15> Date of Encounter: 11/22/17 Time of Encounter: 21:00 - Attending Attestation I have personally performed a face to face evaluation on this patient. I have reviewed and agree with the care plan. History and Exam by me shows: CC: chest pain Pt admitted after presenting to ER with two day history of intermittnet jaw and left arm pain, occurred first at rest after moving large dog kennel weighing several hundred pounds. She had sudden onset chest several minutes after completing that task. She went inside and sat down, rested, and chesp pain resolved slowly. She notes nausea and diaphoresis provoked with this event resolved over around fifteen minutes total. She felt tired and washed out after that event. She went to bed, but awoke feeling tired and washed out which she describes as her anginal equivalent before her most recent PCI with EVELIO mid RCA 01/25. She is now pain free, resting comfortably. PMHx: reviewed PE: Pt seen and examined, agree with documentation IMP/Plan 1. NSTEMI with resolution of chest pain on current medications 2. CAD - severe single vessel and mild double vessel CAD, post stent with PCI RCA 01/25. Recommend LHC/poss Friday, continue with systemic anticoagulation pending LHC/poss. risks and benefits discussed, pt agrees to proceed. 3. Hypertension, controlled on current meds. Assessment and Plan Discussion w patient/family: The assessment and plan as outlined above was discussed with the patient and/or family members who expressed understanding and agreement. All questions were answered. Thank you for involving us in the care of your patient. Please call with any questions. History of Present Illness History of present illness: Ms. Lara is a 57 year old female All Systems Review: The remainder of the systems were reviewed and are negative Physical Examination Vital Signs, Last 4 Hours Temp Pulse Resp BP Pulse Ox 11/23/17 19:52 97.9 F 63 18 138/83 97 Results 11/23/17 03:52 11/23/17 03:52 Lab Results 11/22/17 11/22/17 11/23/17 21:53 21:53 03:52 WBC 10.1 Hgb 11.6 Hct 35.8 Plt Count 297 INR APTT 66.4 H Sodium Potassium Chloride Carbon Dioxide BUN Creatinine Glucose Calcium Magnesium Total Bilirubin AST ALT Alkaline Phosphatase Troponin I 0.73 H* 11/23/17 11/23/17 11/23/17 03:52 03:52 11:57 WBC Hgb Hct Plt Count INR 1.1 APTT 60.0 H Sodium 139 Potassium 3.8 Chloride 108 H Carbon Dioxide 22 L BUN 16 Creatinine 1.30 H Glucose 120 H Calcium 8.6 Magnesium 2.0 Total Bilirubin 0.4 AST 24 ALT 14 Alkaline Phosphatase 109 H Troponin I 3.37 H* 11/23/17 18:33 WBC Hgb Hct Plt Count INR APTT Sodium Potassium Chloride Carbon Dioxide BUN Creatinine Glucose Calcium Magnesium Total Bilirubin AST ALT Alkaline Phosphatase Troponin I 4.16 H*
[2017-11-22] MEDS ORDERED: Nitroglycerin 25 MG/250 ML INFUS..BTL IVC SCH ×2 (12:30→14:30)
[2017-11-22] MEDS ORDERED: Nitroglycerin 1 INCH/GM PACKET TP PRN (16:55)
[2017-11-22] MEDS: Ranolazine 500 MG TAB.ER.12H PO SCH (20:16)
[2017-11-23] MEDS: 0.9 % Sodium Chloride 1,000 ML IVC SCH ×2 (01:01→14:00)
[2017-11-23 04:38] LABS: Basophils # 0.1 K/mcL (0.0-0.2); Basophils % 0.5 %; Eosinophils # 0.2 K/mcL (0.0-0.6); Eosinophils % 1.9 %; Hematocrit 35.8 % (35.3-44.9); Hemoglobin 11.6 g/dL (11.5-15.4); Immature Granulocytes % 0.5 % (0-4); Lymphocytes # 3.1 K/mcL (0.6-4.6); Lymphocytes % 30.5 %; Mean Corpuscular HGB Conc 32.4 g/dL (31.6-35.5); Mean Corpuscular Hemoglobin 30.8 pg (28.0-33.3); Mean Platelet Volume 10.7 fL (9.4-12.4); Monocytes # 0.7 K/mcL (0.0-1.3); Monocytes % 6.7 %; Platelet Count 297 K/mcL (140-400); Red Blood Count 3.77 M/mcL (3.82-4.97); Red Cell Distribution Width 13.6 % (11.5-14.5); Segmented Neutrophils % 59.9 %
[2017-11-23 04:42] LABS: INR 1.1; Prothrombin Time 11.5 Seconds (9.4-12.1)
[2017-11-23 05:04] LABS: Albumin 3.8 g/dL (3.5-5.7); Albumin/Globulin Ratio 1.3 (1.1-2.2); Bilirubin,Total 0.4 mg/dL (0.3-1.0); Calcium 8.6 mg/dL (8.6-10.3); Chol/HDL Ratio 3.4 (0-4.9); Potassium 3.8 mEq/L (3.5-5.1); Total Protein 6.8 g/dL (6.4-8.9)
[2017-11-23] MEDS: Aspirin 81 MG TAB.CHEW PO SCH (08:00)
[2017-11-23] MEDS: Ranolazine 500 MG TAB.ER.12H PO SCH ×2 (08:00→20:17)
[2017-11-23] MEDS: Heparin 25,000 UNIT/500 ML D5W 25,000 UNIT/500 ML BAG IVC SCH (08:32)
[2017-11-23] MEDS ORDERED: Isosorbide MONOnitrate (24 HR) 60 MG TAB.ER.24H PO SCH (09:00)
--- NOTE | 2017-11-23 12:19 | Cardiology Progress Note ---
Date of Encounter: 11/23/17 Time of Encounter: 12:00 Assessment and Plan (1) NSTEMI (non-ST elevated myocardial infarction) Current Visit: Yes Status: Acute Troponin 0.39, 0.48, 0.76. Typical chest pain symptoms. Continue heparin gtt. Had episode of jaw/arm pain this AM, recommend application of ordered NTG paste. Continue asa, statin, brilinta. Check TTE. Cardiac rehab. Will check troponin now to ensure downtrend. Recommend LHC with possible PCI; alternatives, risks, and benefits discussed, she is agreeable to proceed. NPO after MN except medications. (2) CVA (cerebral vascular accident) Current Visit: Yes Status: Chronic hx of CVA prior to STEMI last January. 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 Plan as above--cont asa, statin, BB, nitrates. Uninterrupted DAPT for a minimum of 1 year Qualifiers: Coronary Disease-Associated Artery/Lesion type: [place] artery [place] vs. transplanted heart: [place] heart Associated angina: without angina Qualified Code(s): I25.10 - Atherosclerotic heart disease of [place] coronary artery without angina pectoris Discussion w patient/family: The assessment and plan as outlined above was discussed with the patient and/or family members who expressed understanding and agreement. All questions were answered. Thank you for involving us in the care of your patient. Please call with any questions. The patient will be discussed and reviewed with Dr. Patricio, changes to be made accordingly. Subjective Principal diagnosis: NSTEMI Interval history: Seen and examined. Reports brief (lasts seconds) intermittent episodes of jaw/arm discomfort overnight. Pain free upon exam. Otherwise, no new symptoms. Objective Vital Signs, Last 4 Hours Temp Pulse Resp BP Pulse Ox 11/23/17 11:48 98.4 F 60 17 146/85 98 General: Conversant, No Apparent Distress HEENT: Atraumatic, Normocephaly, Mucus Membranes Moist Cardiac: Reg Rate and Rhythm, Normal S1 and S2 Lungs: Normal Breath Sounds Neuro: Alert and responsive Abdomen: Soft Skin: No rashes noted on visualized skin Musculoskeletal: No Chest Wall Tenderness Extremities: No Edema, Normal Pulses Results 11/23/17 03:52 11/23/17 03:52 Lab Results 11/22/17 11/22/17 11/22/17 14:33 15:53 21:53 WBC Hgb Hct Plt Count INR APTT 97.7 H D Sodium Potassium Chloride Carbon Dioxide BUN Creatinine Glucose Calcium Magnesium Total Bilirubin AST ALT Alkaline Phosphatase Troponin I 0.38 H* 0.73 H* 11/22/17 11/23/17 11/23/17 21:53 03:52 03:52 WBC 10.1 Hgb 11.6 Hct 35.8 Plt Count 297 INR APTT 66.4 H Sodium 139 Potassium 3.8 Chloride 108 H Carbon Dioxide 22 L BUN 16 Creatinine 1.30 H Glucose 120 H Calcium 8.6 Magnesium 2.0 Total Bilirubin 0.4 AST 24 ALT 14 Alkaline Phosphatase 109 H Troponin I 11/23/17 03:52 WBC Hgb Hct Plt Count INR 1.1 APTT 60.0 H Sodium Potassium Chloride Carbon Dioxide BUN Creatinine Glucose Calcium Magnesium Total Bilirubin AST ALT Alkaline Phosphatase Troponin I Active Medications Aspirin (Aspirin) 81 mg PO DAILY SHANTAL Stop: 05/25/18 09:01 Last Admin: 11/23/17 08:00 Dose: 81 mg Atorvastatin Calcium (Lipitor) 80 mg PO HS SHANTAL Stop: 05/24/18 21:01 Last Admin: 11/22/17 20:15 Dose: 80 mg Heparin Sodium (Porcine) (Heparin) 4,000 unit IVP Q6HR PRN PRN Reason: SEE COMMENTS Stop: 05/24/18 08:02 Heparin Sodium (Porcine) (Heparin) 2,000 unit IVP Q6H PRN PRN Reason: SEE COMMENTS Stop: 05/24/18 08:02 Heparin Sodium/Dextrose (Heparin 25,000 Unit/500 Ml D5w) 25,000 unit in 500 mls @ 19.595 mls/hr IVC .Q24H SHANTAL; 12 UNIT/KG/HR PRN Reason: Protocol Stop: 05/24/18 08:16 Last Admin: 11/23/17 08:32 Dose: 10.16 unit/kg/hr, 16.6 mls/hr Sodium Chloride (0.9 % Sodium Chloride) 1,000 mls @ 75 mls/hr IVC .[id number] SHANTAL Stop: 05/24/18 11:31 Last Admin: 11/23/17 01:01 Dose: 75 mls/hr Metoprolol Tartrate (Lopressor) 12.5 mg PO BID [facility] Stop: 05/24/18 21:01 Last Admin: 11/23/17 08:00 Dose: 12.5 mg Naloxone HCl (Narcan) 0.4 mg IVP Q2MIN PRN PRN Reason: SEE COMMENTS Stop: 05/24/18 09:37 Nitroglycerin (Nitroglycerin) 0.5 inch TP Q6HNTG PRN PRN Reason: Chest Pain Stop: 05/24/18 17:01 Last Admin: 11/23/17 12:05 Dose: 0.5 inch Ranolazine (Ranexa) 500 mg PO BID [facility] Stop: 05/24/18 21:01 Last Admin: 11/23/17 08:00 Dose: 500 mg - Imaging and Cardiology Echo: pending, report reviewed Cardiac cath: report reviewed - EKG Interpretation EKG results cardiology: personally reviewed Consult Discharge Plan - Plan Referrals: Yohan Mejía DO [Primary Care Provider] -
--- NOTE | 2017-11-23 13:35 | Internal Med Progress Note ---
Date of Encounter: 11/23/17 Time of Encounter: 13:30 - Assessment and plan (1) NSTEMI (non-ST elevated myocardial infarction) Current Visit: Yes Status: Acute Assessment and plan: Continue aspirin, heparin infusion, beta karthik, nitroglycerin paste. Clarify Brilinta with cardiology, RN is aware. Plan for left heart catheterization. We will obtain echo during this admission. Considering ongoing angina and hypertension, we will increase dose of beta karthik to reduce cardiac workload. (2) Hypertension Current Visit: No Status: Chronic Assessment and plan: Increased dose of beta karthik due to persistent hypertension. 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 No dyspnea. No nausea or emesis. No diaphoresis. - Constitutional Vitals: Temp Pulse Resp BP Pulse Ox 98.4 F 60 17 146/85 98 11/23/17 11:48 11/23/17 11:48 11/23/17 11:48 11/23/17 11:48 11/23/17 11:48 Exam: Physical exam Gen: Comfortable, laying in bed, in no visible distress HEENT: Normocephalic, atraumatic. No conjunctival icterus. Moist oral mucosa. Neck: Supple Lungs: Clear to auscultation, no foreign sounds Heart: Normal S1-S2, no murmurs rubs or gallops Abdomen: Normoactive bowel sounds, no guarding rigidity or tenderness Extremities: No edema clubbing or cyanosis Neuro: Alert oriented 3, no focal deficits Skin: No skin lesions Internal Medicine: Result - Labs CBC & Chem 7: 11/23/17 03:52 11/23/17 03:52 Labs: Short CBC 11/23/17 Range/Units 03:52 WBC 10.1 (4.3-11.1) K/mcL Hgb 11.6 (11.5-15.4) g/dL Hct 35.8 (35.3-44.9) % Plt Count 297 (140-400) K/mcL Neutrophils # 6.0 (1.6-8.9) K/mcL BMP 11/23/17 03:52 Sodium 139 Potassium 3.8 Chloride 108 H Carbon Dioxide 22 L BUN 16 Creatinine 1.30 H Glucose 120 H Calcium 8.6 Cardiac Enzymes 11/22/17 11/22/17 11/23/17 Range/Units 15:53 21:53 11:57 Troponin I 0.38 H* 0.73 H* 3.37 H* (< 0.04) ng/mL Liver Function 11/23/17 Range/Units 03:52 Total Bilirubin 0.4 (0.3-1.0) mg/dL AST 24 (13-39) Units/L ALT 14 (7-52) Units/L Alkaline Phosphatase 109 H (34-104) Units/L Albumin 3.8 (3.5-5.7) g/dL - ABG Interpretation ABG results: PT/INR, D-dimer PT 11.5 Seconds (9.4-12.1) 11/23/17 03:52 Consult Discharge Plan - Plan Referrals: Yohan Mejía DO [Primary Care Provider] -
[2017-11-23] MEDS: *HR* Ticagrelor 90 MG TABLET PO SCH (14:20)
[2017-11-24 05:18] LABS: Basophils % 0.3 %; Eosinophils # 0.2 K/mcL (0.0-0.6); Eosinophils % 1.8 %; Hematocrit 32.6 % (35.3-44.9); Hemoglobin 10.5 g/dL (11.5-15.4); Immature Granulocytes % 0.3 % (0-4); Lymphocytes # 3.1 K/mcL (0.6-4.6); Lymphocytes % 34.1 %; Mean Corpuscular HGB Conc 32.2 g/dL (31.6-35.5); Mean Corpuscular Hemoglobin 31.3 pg (28.0-33.3); Mean Platelet Volume 10.6 fL (9.4-12.4); Monocytes # 0.7 K/mcL (0.0-1.3); Monocytes % 7.2 %; Neutrophils # 5.2 K/mcL (1.6-8.9); Nucleated Red Blood Cells 0.2 /100 WBC (0); Platelet Count 258 K/mcL (140-400); Red Blood Count 3.36 M/mcL (3.82-4.97); Red Cell Distribution Width 13.8 % (11.5-14.5); Segmented Neutrophils % 56.3 %
[2017-11-24 05:35] LABS: BUN/Creatinine Ratio 11 (6-26); Blood Urea Nitrogen 12 mg/dL (6-20); Calcium 8.6 mg/dL (8.6-10.3); Carbon Dioxide 21 mEq/L (23-29); Chloride 112 mEq/L (98-107); Glucose 123 mg/dL (70-105); Osmolality,Calculated 289 (280-300); Potassium 3.8 mEq/L (3.5-5.1); Sodium 139 mEq/L (136-145); eGFR For African Americans > 60 (> 60); eGFR For Non-African Americans 51 (> 60)
[2017-11-24] MEDS: 0.9 % Sodium Chloride 1,000 ML IVC SCH ×2 (05:56→17:21)
--- NOTE | 2017-11-24 08:23 | Pre-Sedation Evaluation ---
Pre-sedation evaluation - Pre-sedation checklist Date of procedure: 11/24/17 Procedure: cardiac cath Recent Vitals: Last Vital Signs Temp 98.3 F 11/24/17 07:49 Pulse 59 11/24/17 07:49 Resp 16 11/24/17 07:49 BP 117/74 11/24/17 07:49 Pulse Ox 98 11/24/17 07:49 H&P (including ROS) documented in medical record: Yes Previous reaction to sedatives/anesthetics: No Dietary Status: NPO after Midnight Dentition: dentures removed ASA Classification *see protocol: CLASS II-Mild systemic disease
[2017-11-24] MEDS: *HR* Ticagrelor 90 MG TABLET PO SCH ×3 (08:35→20:51)
[2017-11-24] MEDS: Aspirin 81 MG TAB.CHEW PO SCH (08:38)
[2017-11-24] MEDS: Ranolazine 500 MG TAB.ER.12H PO SCH ×2 (08:39→20:51)
[2017-11-24] MEDS ORDERED: ISOVUE-370 200 ML INFUS..BTL IV ONE ×2 (08:55→09:46)
[2017-11-24] MEDS ORDERED: Nitroglycerin 1,000 MCG/10 ML VIAL IV ONE (08:55)
[2017-11-24] MEDS ORDERED: Heparin 1,000 UNITS/500 mL 500 ML ONE (08:55)
[2017-11-24] MEDS ORDERED: *HR* Heparin 10,000 UNIT/10 ML VIAL ONE (08:55)
[2017-11-24] MEDS ORDERED: 0.9 % Sodium Chloride 1,000 ML ONE ×2 (08:55→09:13)
[2017-11-24] MEDS ORDERED: *HR* Midazolam HCl 2 MG/2 ML VIAL ONE (09:12)
[2017-11-24] MEDS ORDERED: *HR* FentaNYL (PF) 100 MCG/2 ML VIAL ONE (09:12)
[2017-11-24] MEDS: Heparin 25,000 UNIT/500 ML D5W 25,000 UNIT/500 ML BAG IVC SCH (09:17)
[2017-11-24] MEDS ORDERED: Tirofiban 12.5 MG/250ML 12.5 MG/250 ML BAG ONE (09:40)
--- NOTE | 2017-11-24 11:14 | Invasive Diagnostic Lab Proc ---
Name: Lizeth Lara Date of Study: 11/24/2017 Date: 1960 Ht: 61.0in Medical Record#: [id number] Age: 57 Wt: 185.41lb Gender: Female BSA: 1.83 Order #: [id number] BMI: 35.05 Physicians Procedure Physician: Jacob Warner MD Referring MD: Referring MD: Staff Name Position Time In Rosita Nolen RN Sales Administration Manager 09:03 AM Sites, Erma RT (R) Scrub 09:03 AM Stephen Rodriguez RT (R) Monitor 09:03 AM Leigh Suarez RT (R) Scrub 10:04 AM Sites, Erma RT (R) Monitor 10:04 AM Stephen Rodriguez RT (R) Scrub 10:08 AM Leigh Suarez RT (R) Monitor 10:09 AM Indications Indication Non-Stemi Procedures Performed Procedure L HRT ARTERY/VENTRICLE ANGIO PRQ CARDIAC ANGIOPLAST 1 ART Pre-Procedure Checklist Informed consent is complete signed and on chart. H&P is on chart. ID band is on and ID verified with patient. Patient NPO for procedure The procedure was described for the patient and questions were answered. Blood Pressure: 188/94 ECG is on chart. Rhythm: NSR Plan of Care Patient will tolerate the procedure without complications. Adequate level of comfort will be maintained. Hemodynamics will remain stable Patient will recover from procedure without complications. Respiratory function will be maintained. Cardiac rhythm will remain stable. Patient temperature will be maintained. Patient and/or family have verbalized understanding of the procedure. Patient Education Chief Complaint/Reason for Test: Cardiac Cath Developmental Category: Adult (18-64 years) Developmentally Appropriate for Age: Yes Learning Barriers: None Education Needs: Procedure Education Method: Verbal Information Taught: Cardiac Cath Educational Evaluation: Able to repeat information Intravenous Access Time IV Size Location DC'd Fluid/Drip Rate Units RN 09:03 AM 18g 1 1/4" Patent On Arrival Rt Wrist 0.9NaCl 25 ml/hr Rosita Nolen RN Allergies No Known Allergies Vital Signs Time BP (mmHg) HR (bpm) O2 Sat. RR (bpm) LOC 09:04 AM 188 / 94 73 100 % 16 5 = Fully awake and oriented or at pre-proc level 09:04 AM / % 4 = Oriented but drowsy 09:19 AM / % 4 = Oriented but drowsy 09:12 AM 188 / 94 74 100 % 09:16 AM 158 / 91 71 100 % 09:21 AM 157 / 83 67 100 % 09:26 AM 124 / 82 62 100 % 09:32 AM 153 / 80 68 100 % 09:36 AM 140 / 83 70 100 % 09:42 AM 159 / 92 70 100 % 09:46 AM 146 / 80 69 100 % 09:51 AM 151 / 87 71 100 % 09:57 AM 173 / 92 73 100 % 10:02 AM 155 / 81 63 100 % 10:06 AM 138 / 87 70 99 % 10:11 AM 143 / 82 73 99 % 10:16 AM 158 / 82 66 100 % 10:21 AM 149 / 82 72 99 % 10:26 AM 160 / 88 69 100 % 10:32 AM 158 / 80 62 100 % 10:37 AM 153 / 82 65 100 % 10:42 AM 157 / 83 67 100 % 10:47 AM 162 / 95 68 100 % 10:52 AM 174 / 96 77 100 % 10:57 AM 171 / 64 63 99 % Procedural Medications Time Medication Dose Units Method Given By 09:08 AM Oxygen 2 L/min nasal cannula Rosita Nolen RN 09:16 AM Versed 0.5 mg Intravenous Rosita Nolen RN 09:16 AM Fentanyl 25 mcg Intravenous Rosita Nolen RN 09:21 AM Lidocaine 2% 10 ml Subcutaneous Jacob Warner MD 09:40 AM Heparin 4000 units Intravenous Rosita Nolen RN 09:41 AM Aggrastat Bolus: 42 ml Intravenous Rosita Nolen RN 09:42 AM Aggrastat 12.5mg/250ml 15 ml Intravenous Rosita Nolen RN 09:52 AM Versed 0.5 mg Intravenous Rosita Nolen RN 09:52 AM Fentanyl 25 mcg Intravenous Rosita Nolen RN 10:03 AM Heparin 500 units Intravenous Rosita Nolen RN 10:18 AM Nitroglycerin 150 mcg Intracoronary Royce Warner MD 10:40 AM Heparin 500 units Intravenous Rosita Nolen RN 10:52 AM Nitroglycerin 200 mcg Intracoronary Royce Warner MD ASA Classification: CLASS III- Severe systemic disease (i.e. prior AMI, diabetes with vascular complications, morbid obesity) Sabine Score Preprocedure Postprocedure Activity 2- Moves 4 extremities sustained head lift Activity 2- Moves 4 extremities sustained head lift Circulation 2- SBP +/= 20 points of pre-anesthetic level Circulation 2- SBP +/= 20 points of pre-anesthetic level Consciousness 2- Awake and alert oriented x 3 Consciousness 2- Awake and alert oriented x 3 O2 Saturation 2- Able to maintain O2 satruation of 92% on room air O2 Saturation 2- Able to maintain O2 satruation of 92% on room air Respiratory 2- Able to deep breathe and cough well Respiratory 2- Able to deep breathe and cough well Total Score 10 Total Score 10 Contrast Agent: Isovue Fluoro Dose: 3316 mGy Activated Clotting Time Time Seconds to Clot 09:40 AM 150 10:02 AM 222 10:40 AM 223 Procedure Log Time Note Enter By 09:03 AM 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 09:04 AM Procedure start 09:04 09:04 AM ASA Class CLASS III- Severe systemic disease (i.e. prior AMI, diabetes with vascular complications, morbid obesity) 09:08 AM Time: 09:08 Oxygen on at 2 L/min per nasal cannula by Rosita Nolen RN 09:11 AM Vitals capture started with the following parameters, Patient=Adult, Interval=5 min, Initial Cxtmgdyd=081 mmHg, Deflation Rate=5 mmHg, Cuff placed on Right Arm 09:12 AM HR=74 bpm, DARG=439/94 mmhg, QeJ3=062.0 % 09:14 AM Recorded ECG: HR=75 Condition=Condition 1 09:15 AM Clinical Presentation: Non-STEMI ilson 09:15 AM Risk of stroke was discussed prior to procedure with Dr. Warner and Patient. 09:16 AM Time: 09:16 Versed 0.5 mg Intravenous Given by Rosita Nolen RN [place] [id number] 09:16 AM HR=71 bpm, PGSM=218/91 mmhg, CaW1=295.0 % 09:16 AM Time: 09:16 Fentanyl 25 mcg Intravenous Given by Rosita Nolen RN [place] [id number] 09:19 AM Time out performed according to hospital policy :19 AM Time: 09:04LOC: 4 = Oriented but drowsy 09:19 AM Time: 09:04 Patient comfortable and pain free: Yes 09:20 AM Pressure channel 1 zeroed. 09:21 AM Time: 09:21 10 ml Lidocaine 2% to right groin Subcutaneous Given by Jacob Warner MD [facility] 09:21 AM HR=67 bpm, CVXN=397/83 mmhg, LeK8=397.0 % 09:22 AM Micro-Introducer Kit utilized for sheath placement 09:23 AM Unsuccessful access attempt # 1 into the right Femoral artery. Manual pressure applied to achieve hemostasis.. 09:24 AM Micro-Introducer Kit utilized for sheath placement 09:26 AM Access obtained by percutaneous puncture. 6Fr 10cm Terumo [place] sheath placed in right Femoral artery. [id number] [facility] 09:26 AM HR=62 bpm, QOMJ=623/82 mmhg, OgO5=804.0 %, Comment=NSR 09:27 AM Stephen Rodriguez RT (R) Position: Scrub Time in: 9:27 to relieve Erma Barajas RT (R) tsites 09:27 AM Leigh Suarez RT (R) Position: Monitor Time in: 09:27 to relieve Stephen Rodriguez RT (R) tsites 09:28 AM 4 mls contrast rt groin. 09:28 AM 0.035 145cm Navilyst 3mmJ wire [id number] [email or web address] 09:28 AM 5Fr FL 4 catheter inserted over the wire [facility] [email or web address] 09:29 AM LCA angiography performed in multiple views. [email or web address] 09:29 AM Pressure channel 1 zero failed. 09:29 AM Recorded Pressure: Ao, HR=73, Condition=Condition 1 (Aorta) Ao 144/80/106 09:30 AM Recorded Pressure: Ao, HR=67, Condition=Condition 1 (Aorta) Ao 132/68/96 09:31 AM Catheter removed [email or web address] 09:31 AM 5Fr FR 4 catheter inserted over the wire [facility] [email or web address] 09:31 AM RCA angiography performed in multiple views. [email or web address] 09:32 AM HR=68 bpm, MYDN=953/80 mmhg, PcH5=665.0 %, Comment=NSR 09:33 AM Recorded Pressure: Ao, HR=67, Condition=Condition 1 (Aorta) Ao 137/88/111 09:34 AM Coronary Dominance: right [email or web address] 09:34 AM Time: 09:19 Patient comfortable and pain free: Yes [email or web address] 09:34 AM Time: 09:19LOC: 4 = Oriented but drowsy [email or web address] 09:34 AM Lesion found in Proximal RCA. Pre Stenosis: 99 Pre SARAH Flow: 2: Partial Flow/Perfusion (> 1 but < 3) [email or web address] 09:34 AM Lesion found in Mid Circumflex. Pre Stenosis: 100 Pre SARAH Flow: 0: No Flow/No perfusion [email or web address] 09:35 AM Lesion found in Proximal LAD. Pre Stenosis: 60 Pre SARAH Flow: 3: Complete and Brisk Flow/Perfusion [email or web address] 09:35 AM Catheter removed [email or web address] 09:35 AM Inflation device was opened. [email or web address] 09:35 AM 6Fr JR 4 Runway guide catheter was used to cannulate the PCI vessel successfully. reused? No [email or web address] 09:36 AM .014 BMW [place] 190cm guide wire across target lesion- successful. reused? No [email or web address] 09:36 AM HR=70 bpm, AWFH=878/83 mmhg, AeX6=154.0 %, Comment=NSR 09:40 AM At 09:40 the ACT was 150 seconds. [email or web address] 09:40 AM Time: 09:40 Heparin 4,000 units Intravenous Given by Rosita Nolen RN [email or web address] 09:42 AM Time: 09:41 Aggrastat Bolus: 42 ml Intravenous Given by Rosita Nolen RN Huitron pump ilson 09:42 AM Time: 09:42 Aggrastat 12.5mg/250ml 15 ml Intravenous Given by Rosita Nolen RN Huitron pump ilson 09:42 AM HR=70 bpm, OEMK=690/92 mmhg, NlD7=600.0 %, Comment=NSR 09:42 AM Recorded Pressure: Ao, HR=68, Condition=Condition 1 (Aorta) Ao 159/83/113 09:46 AM HR=69 bpm, PJLC=934/80 mmhg, JxV8=253.0 %, Comment=NSR 09:49 AM 6FR JR 4 removed and intact. Unable to cannulate. 09:51 AM 5Fr JR 4 Runway guide catheter was used to cannulate the PCI vessel successfully. reused? No 2 09:51 AM HR=71 bpm, OWJE=489/87 mmhg, UsO4=067.0 %, Comment=NSR 09:52 AM Time: 09:52 Versed 0.5 mg Intravenous Given by Rosita Nolen RN 09:53 AM Time: 09:52 Fentanyl 25 mcg Intravenous Given by Rosita Nolen RN ilson 09:56 AM wire renserted catheter removed ilson 09:57 AM 6Fr RBR 3.5 [place] guide catheter was used to cannulate the PCI vessel successfully. reused? No 2 09:57 AM HR=73 bpm, COLL=136/92 mmhg, UuK5=977.0 % 09:58 AM Leigh Suarez RT (R) Position: Scrub Time in: 10:04 to relieve Stephen Rodriguez RT (R) tsites 10:01 AM 6Fr JR 4 Runway guide catheter was used to cannulate the PCI vessel successfully. reused? No [email or web address] 10:02 AM HR=63 bpm, ORES=344/81 mmhg, JyP2=268.0 % 10:02 AM At 10:02 the ACT was 222 seconds. [email or web address] 10:03 AM bmw reinserted [email or web address] 10:03 AM Time: 10:03 Heparin 500 units Intravenous Given by Rosita Nolen RN tsites 10:04 AM 2.0 mm x 10 mm Emerge Monorail balloon across target lesion- successful. reused? No tsites 10:04 AM Erma Barajas RT (R) Position: Monitor Time in: 10:04 to relieve Stephen Rodriguez RT (R) tsites 10:05 AM Balloon inflated @ 10 bj for 8 seconds tsites 10:05 AM Balloon inflated @ 12 bj for 7 seconds tsites 10:05 AM Balloon inflated @ 10 bj for 3 seconds tsites 10:06 AM Balloon catheter removed intact. tsites 10:06 AM HR=70 bpm, QUIB=482/87 mmhg, SpO2=99.0 % 10:07 AM 2.5 mm x 12mm NC Emerge balloon across target lesion- successful. reused? No tsites 10:10 AM Balloon inflated @ 16 bj for 6 seconds tsites 10:10 AM Balloon inflated @ 18 bj for 6 seconds tsites 10:10 AM Balloon inflated @ 16 bj for 4 seconds tsites 10:10 AM Balloon inflated @ 16 bj for 7 seconds tsites 10:11 AM Balloon inflated @ 16 bj for 16 seconds tsites 10:11 AM HR=73 bpm, WLVR=526/82 mmhg, SpO2=99.0 % 10:12 AM Balloon inflated @ 8 bj for 3 seconds tsites 10:12 AM Balloon inflated @ 16 bj for 13 seconds tsites 10:14 AM Guide wire removed intact. tsites 10:14 AM Balloon catheter removed intact. tsites 10:14 AM .014 BMW [place] 182cm guide wire across target lesion- successful. reused? No tsites 10:16 AM HR=66 bpm, CPZJ=096/82 mmhg, VuI1=173.0 % 10:18 AM Time: 10:18 Nitroglycerin 150 mcg Intracoronary Given by Royce Warner MD tsites 10:21 AM PCI Status Urgent tsites 10:21 AM PCI Indication: PCI for high risk Non-STEMI or unstable angina tsites 10:21 AM HR=72 bpm, RENB=131/82 mmhg, SpO2=99.0 % 10:26 AM HR=69 bpm, ICOR=107/88 mmhg, GqH4=284.0 % 10:28 AM Guide wire removed intact. tsites 10:29 AM wire renserted catheter removed tsites 10:29 AM 6Fr 3drc [place] Bright-Tip guide catheter was used to cannulate the PCI vessel successfully. reused? No tsites 10:32 AM HR=62 bpm, OMTA=327/80 mmhg, MuB5=696.0 % 10:32 AM .014 BMW [place] 182cm guide wire across target lesion- successful. reused? No tsites 10:36 AM Guide wire removed intact. tsites 10:36 AM wire renserted catheter removed tsites 10:36 AM 6Fr JR 4 Runway guide catheter was used to cannulate the PCI vessel successfully. reused? No tsites 10:37 AM HR=65 bpm, IVGC=516/82 mmhg, RzG6=285.0 % 10:37 AM act drawn tsites 10:39 AM bmw reinserted tsites 10:40 AM At 10:40 the ACT was 223 seconds. tsites 10:40 AM Time: 10:40 Heparin 500 units Intravenous Given by Rosita Nolen RN tsites 10:41 AM 2.0 mm x 20 mm Emerge Monorail balloon across target lesion- successful. reused? No tsites 10:42 AM HR=67 bpm, NKKV=355/83 mmhg, UyW6=782.0 % 10:42 AM Balloon inflated @ 6 bj for 7 seconds tsites 10:43 AM Balloon inflated @ 10 bj for 10 seconds tsites 10:43 AM Balloon inflated @ 6 bj for 5 seconds tsites 10:44 AM Balloon inflated @ 10 bj for 30 seconds tsites 10:44 AM Balloon inflated @ 12 bj for 30 seconds tsites 10:45 AM Balloon inflated @ 16 bj for 11 seconds tsites 10:46 AM Balloon inflated @ 16 bj for 15 seconds tsites 10:46 AM Balloon inflated @ 14 bj for 8 seconds tsites 10:46 AM Balloon inflated @ 14 bj for 10 seconds tsites 10:47 AM Balloon catheter removed intact. tsites 10:47 AM HR=68 bpm, LIZF=280/95 mmhg, BqW2=039.0 % 10:48 AM 2.5 mm x 20mm NC Emerge balloon across target lesion- successful. reused? No tsites 10:49 AM Balloon inflated @ 20 bj for 8 seconds tsites 10:49 AM Balloon inflated @ 20 bj for 6 seconds tsites 10:49 AM Balloon inflated @ 20 bj for 7 seconds tsites 10:50 AM Balloon inflated @ 20 bj for 23 seconds tsites 10:52 AM HR=77 bpm, GTKI=532/96 mmhg, ArY9=881.0 % 10:52 AM Time: 10:52 Nitroglycerin 200 mcg Intracoronary Given by Royce Warner MD tsites 10:53 AM Balloon catheter removed intact. tsites 10:53 AM Guide wire removed intact. tsites 10:54 AM Procedure completed at 10:54 tsites 10:54 AM Did you address SARAH flow and Dominance? Yes tsites 10:55 AM Sign out completed: Radiation Dose 3316 mGy Fluoro Time: 46.6 Isovue 370 - 200ml contrast ml given by Jacob Warner MD. Complications: NoneCardiac Rehab Consult needed: YesConfirmed administered medications: Yes tsites 10:55 AM Isovue 370 - 200ml,2 Bottle(s) used. tsites 10:55 AM Arterial sheath pulled, Angio-seal closure device used and was Successful S/N. tsites 10:55 AM Estimated Blood Loss: less than 20cc tsites 10:55 AM Post ECG NSR tsites 10:55 AM Post Blood Pressure 174/96 tsites 10:55 AM 10:55 Post Pulses Bilateral DP & PT 1+ tsites 10:56 AM Information taught Cardiac Cath, PCI, and Angioseal tsites 10:56 AM Education needs Procedure, Disease Process, and Plan of Care tsites 10:56 AM Learning barriers :None tsites 10:56 AM Education Methods Verbal tsites 10:56 AM Education evaluation Able to repeat information tsites 10:56 AM Site status No bleeding/hematoma - Rt Groin as reported by Leigh Suarez RT (R) at 10:56 tsites 10:56 AM Opsite applied tsites 10:57 AM HR=63 bpm, LKFW=396/64 mmhg, SpO2=99.0 % 11:01 AM Lesion found in Distal Circumflex. Pre Stenosis: 60 Pre SARAH Flow: tsites 11:01 AM Lesion found in 1st Marginal. Pre Stenosis: 60 Pre SARAH Flow: tsites 11:01 AM Proximal Left Anterior Descending Coronary Artery with 60% stenosis. If graft is supplying this territory, 0 % stenosis. tsites 11:01 AM Circumflex, Obtuse Marginal, Left Posterior Descending, and Left Posterolateral Coronary Arteries with 60 % stenosis. If graft is supplying this area, 0 % stenosis tsites 11:01 AM Right Coronary, Right Posterior Descending Arteries with Right Posterolateral and Acute Marginal branches with 100 % stenosis. If graft is supplying this area, 0 % stenosis tsites 11:06 AM Report given to sixto OJEDA Pt taken to 2A Room #26. 11:06 tsites 11:06 AM Delay to floor No tsites 11:06 AM Patient out of room: 11:06 tsites 11:06 AM Family placed in consult room. tsites Complications Complication None Hemodynamics Pressures Site Systolic/A Wave Diastolic/V Wave Mean AO 144 80 106 AO 132 68 96 AO 137 88 111 AO 159 83 113 Post Procedure Information Blood Pressure: 174/96 mmHg Rhythm: NSR Post procedural instructions were given Closure Device Time Device Success/Fail 11/24/2017 11:02:00 AM Angio-Seal VIP Successful Site Checks Time Location Status Staff Sheath In? Note 10:56 AM Rt Groin No bleeding/hematoma Leigh Suarez RT (R) Pulses Time Site Pre-Procedure Post-Procedure Note 11/24/2017 9:02:00 AM Bilateral DP & PT 1+ 11/24/2017 9:03:00 AM Bilateral radial 1+ 10:55:00 AM Bilateral DP & PT 1+ Updated by Erma Barajas RT (R) on 11/24/2017 11:08:27 AM Erma Barajas RT electronically signed on 11/24/2017 11:08:58 AM with status of Final
[2017-11-24] MEDS ORDERED: Tirofiban 12.5 MG/250ML 12.5 MG/250 ML BAG IVC SCH (11:15)
--- NOTE | 2017-11-24 12:55 | Internal Med Progress Note ---
Date of Encounter: 11/24/17 Time of Encounter: 12:53 - Assessment and plan (1) NSTEMI (non-ST elevated myocardial infarction) Current Visit: Yes Status: Acute Assessment and plan: Continue aspirin, Brilinta, statin, beta karthik. Echo results noted. Status post left heart catheterization with PTCA to the mid RCA. We will follow-up on cardiology's recommendations. I will clarify with cardiology about the heparin drip. h (2) Hypertension Current Visit: No Status: Chronic Assessment and plan: Continue current dose of Lopressor. (3) CVA (cerebral vascular accident) Current Visit: Yes Status: Chronic Assessment and plan: Continue aspirin, statin. Has a history of CVA. 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 No acute events. Status post left heart catheterization with PTCA done to the mid RCA. Hemodynamically stable. Afebrile. No chest pain. - Constitutional Vitals: Temp Pulse Resp BP Pulse Ox 98.3 F 59 16 117/74 98 11/24/17 07:49 11/24/17 07:49 11/24/17 07:49 11/24/17 07:49 11/24/17 08:59 Exam: GEN: NAD CVS: RRR. S1, S2, No m/r/g RESP: CTAB ABD: Soft, NT, ND, +BS EXT: No edema. 2+ DP. No rashes NEURO: Nonfocal Internal Medicine: Result - Labs CBC & Chem 7: 11/24/17 04:46 11/24/17 04:46 Labs: Short CBC 11/24/17 Range/Units 04:46 WBC 9.2 (4.3-11.1) K/mcL Hgb 10.5 L (11.5-15.4) g/dL Hct 32.6 L (35.3-44.9) % Plt Count 258 (140-400) K/mcL Neutrophils # 5.2 (1.6-8.9) K/mcL BMP 11/24/17 04:46 Sodium 139 Potassium 3.8 Chloride 112 H Carbon Dioxide 21 L BUN 12 Creatinine 1.10 Glucose 123 H Calcium 8.6 Cardiac Enzymes 11/23/17 Range/Units 18:33 Troponin I 4.16 H* (< 0.04) ng/mL - ABG Interpretation ABG results: PT/INR, D-dimer PT 11.5 Seconds (9.4-12.1) 11/23/17 03:52 Consult Discharge Plan - Plan Referrals: Yohan Mejía DO [Primary Care Provider] -
[2017-11-25 05:24] LABS: Basophils % 0.5 %; Eosinophils # 0.1 K/mcL (0.0-0.6); Hematocrit 31.6 % (35.3-44.9); Hemoglobin 10.2 g/dL (11.5-15.4); Immature Granulocytes % 0.3 % (0-4); Lymphocytes # 1.8 K/mcL (0.6-4.6); Lymphocytes % 20.9 %; Mean Corpuscular HGB Conc 32.3 g/dL (31.6-35.5); Mean Corpuscular Hemoglobin 30.8 pg (28.0-33.3); Mean Corpuscular Volume 95.5 fL (83.0-100.0); Mean Platelet Volume 10.2 fL (9.4-12.4); Monocytes # 0.6 K/mcL (0.0-1.3); Monocytes % 6.6 %; Neutrophils # 6.2 K/mcL (1.6-8.9); Platelet Count 238 K/mcL (140-400); Red Blood Count 3.31 M/mcL (3.82-4.97); Segmented Neutrophils % 70.7 %
[2017-11-25 05:39] LABS: BUN/Creatinine Ratio 7 (6-26); Blood Urea Nitrogen 8 mg/dL (6-20); Calcium 8.3 mg/dL (8.6-10.3); Carbon Dioxide 22 mEq/L (23-29); Chloride 110 mEq/L (98-107); Glucose 107 mg/dL (70-105); Osmolality,Calculated 289 (280-300); Potassium 3.6 mEq/L (3.5-5.1); Sodium 140 mEq/L (136-145); eGFR For African Americans > 60 (> 60); eGFR For Non-African Americans 53 (> 60)
[2017-11-25 06:53] VITALS: BP 120/71
[2017-11-25] MEDS ORDERED: Magnesium Oxide 400 MG TABLET PO ONE (07:50)
--- NOTE | 2017-11-25 07:55 | Discharge Summary ---
Orders not resulted at time of discharge: Pending orders 11/24/17 11:11 ECG 12 lead ECG [ECG] Stat 11/25/17 07:00 ECG 12 lead ECG [ECG] Routine Date of Encounter: 11/25/17 Time of Encounter: 07:53 - Discharge Diagnosis (1) NSTEMI (non-ST elevated myocardial infarction) Priority: Primary Status: Acute (2) Hypertension Priority: Secondary Status: Chronic Qualifiers: Hypertension type: essential hypertension Qualified Code(s): I10 - Essential (primary) hypertension (3) CVA (cerebral vascular accident) Priority: Secondary Status: Chronic Qualifiers: CVA mechanism: thrombosis Precerebral and cerebral artery: posterior cerebral artery Laterality of affected vessel: right Qualified Code(s): I63.331 - 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 Lara is a 57 year old female history of coronary disease, myocardial infarction was also complaint of jaw discomfort. Patient noted she was out in her yard doing physical activity and had some discomfort in her jaw and bilateral shoulders. Upon evaluation an EKG was done which showed no acute ST or T-wave changes. Troponins were elevated and continued to rise and she was started on a heparin drip. Cardiology saw the patient and she underwent the left heart catheterization with PTCA of prox-mid ISR of RCA. She was discharged the following day in a stable condition with follow-up recommended with cardiology and her PCP. - Time Spent with Patient Total time spent providing and/or coordinating discharge services: Greater than 30 minutes - Discharge Medications Prescriptions: Metoprolol [Lopressor] 25 mg PO BID #60 tablet Home Medications: Aspirin 81 mg PO DAILY #30 tab.chew 01/25/17 [Rx] Atorvastatin [Lipitor] 80 mg PO HS #60 tablet 01/25/17 [Rx] Isosorbide MONOnitrate (24 HR) [Imdur] 60 mg PO DAILY #30 tab.er.24h 01/25/17 [ Rx] Nitroglycerin 0.4 mg SL Q5MIN PRN #7 tab.subl 01/25/17 [Rx] Ranolazine [Ranexa] 500 mg PO BID #60 tab.er.12h 01/25/17 [Rx] Ticagrelor [Brilinta] 90 mg PO BID #60 tablet 01/25/17 [Rx] Lisinopril-HCTZ 10-12.5 [Prinzide 10-12.5] 1 tab PO DAILY 11/22/17 [History] Metoprolol [Lopressor] 25 mg PO BID #60 tablet 11/25/17 [Rx] Allergies/Adverse Reactions: 3 Allergy/AdvReac Type Severity Reaction Status Date / Time No Known Allergies Allergy Verified 11/22/17 07:00 Date of admission: 11/22/17 13:25 Primary care physician: Yohan Mejía DO Consults: 11/24/17 11:11 Consult to Cardiac Rehabilitation-Phase1 [CONS] Routine Comment: Reason for Consult: AMI Call Completed: Yes Consult to Nurse Navigator [CONS] Routine Comment: - Constitutional Vitals: Temp Pulse Resp BP Pulse Ox 97.7 F 66 18 120/71 96 11/25/17 06:46 11/25/17 06:46 11/25/17 06:46 11/25/17 06:46 11/25/17 06:46 Exam: GEN: NAD CVS: RRR. S1, S2, No m/r/g RESP: CTAB ABD: Soft, NT, ND, +BS EXT: No edema. 2+ DP. No rashes NEURO: Nonfocal - Patient Status Disposition: Home, Self-Care Condition: Fair Overall status at discharge: patient is progressing back to baseline - Discharge Instructions Instructions: Myocardial Infarction (DC) Follow Up With: Yohan Mejía DO [Primary Care Provider] - 11/28/17 10:00 am (Please follow up as schedule...) Gaston Patricio DO [Partnered Physician] - (2 weeks Stefani from the cardio office will call patient for an appt.) - Diet and Activity Activity: increase activity as tolerated Diet: low salt diet
[2017-11-25] MEDS: 0.9 % Sodium Chloride 1,000 ML IVC SCH (07:57)
[2017-11-25] MEDS: Aspirin 81 MG TAB.CHEW PO SCH (07:57)
[2017-11-25] MEDS: Ranolazine 500 MG TAB.ER.12H PO SCH (07:58)
[2017-11-25] MEDS: *HR* Ticagrelor 90 MG TABLET PO SCH (07:58)
--- NOTE | 2017-11-25 08:57 | Electrocardiograph Report ---
[address] [place] [address] Test Date: 2017-11-25 Pat Name: Lizeth Lara Department: 112 Room: 2A26 Gender: F [employer] Receiving Clerk: : [id number] Requested By: Jacob Warner Order Number: [id number] Reading MD: Charley Copeland Measurements Intervals Xenia Rate: 61 P: 63 SC: 169 QRS: 13 QRSD: 107 T: -33 QT: 432 QTc: 435 Interpretive Statements SINUS RHYTHM WITH SINUS ARRHYTHMIA INFERIOR MYOCARDIAL INFARCTION, OF INDETERMINATE AGE Electronically Signed On 11-25-2017 8:55:29 EDT by Charley Copeland
[2017-11-25] MEDS ORDERED: Isosorbide MONOnitrate (24 HR) 30 MG TAB.ER.24H PO SCH (09:00)
--- NOTE | 2017-11-25 09:09 | Cardiology Progress Note ---
Date of Encounter: 11/25/17 Time of Encounter: 08:30 Assessment and Plan (1) NSTEMI (non-ST elevated myocardial infarction) Current Visit: Yes Status: Acute Troponin 0.39, 0.48, 0.76. Typical chest pain symptoms. TTE 11/23/17: LVEF 55-60%, basal inferior wall hypokinesis LHC 11/24/17: PTCA of prox-mid ISR of RCA; otherwise non-obstructive CAD. No recurrent chest pain since PCI. Continue asa, statin, BB, nitrates, and ranexa. Risk factor modification emphasized. Post PCI discharge instructions discussed. Continue uninterrupted DAPT for minimum of 1 year following PCI--pt. verbalized understanding. Cardiology will sign-off, will coordinate outpatient follow-up. (2) CVA (cerebral vascular accident) Current Visit: Yes Status: Chronic hx of CVA prior to STEMI last January. 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 Plan as above--cont asa, statin, BB, nitrates. Uninterrupted DAPT for a minimum of 1 year Qualifiers: Coronary Disease-Associated Artery/Lesion type: [place] artery [place] vs. transplanted heart: [place] heart Associated angina: without angina Qualified Code(s): I25.10 - Atherosclerotic heart disease of [place] coronary artery without angina pectoris Discussion w patient/family: The assessment and plan as outlined above was discussed with the patient and/or family members who expressed understanding and agreement. All questions were answered. Thank you for involving us in the care of your patient. Please call with any questions. The patient was discussed and reviewed with Dr. Copeland; Cardiology will sign- off. Subjective Principal diagnosis: NSTEMI Interval history: Seen and examined. PCI of RCA yesterday, PTCA only. No recurrent arm/jaw pain since [facility]. No issues with cath site. Objective Vital Signs, Last 4 Hours Temp Pulse Resp BP Pulse Ox 11/25/17 06:46 97.7 F 66 18 120/71 96 General: Conversant, No Apparent Distress HEENT: Atraumatic, Normocephaly, Mucus Membranes Moist Cardiac: Reg Rate and Rhythm, Normal S1 and S2 Lungs: Normal Breath Sounds Neuro: Alert and responsive Abdomen: Soft Skin: No rashes noted on visualized skin Musculoskeletal: No Chest Wall Tenderness Extremities: No Edema, Normal Pulses Other: right groin: no hematoma, bruising, or bleeding noted .+2 DP/PT pulses. Results 11/25/17 05:08 11/25/17 05:08 Lab Results 11/25/17 11/25/17 11/25/17 05:08 05:08 05:08 WBC 8.8 Hgb 10.2 L Hct 31.6 L Plt Count 238 Sodium 140 Potassium 3.6 Chloride 110 H Carbon Dioxide 22 L BUN 8 Creatinine 1.07 Glucose 107 H Calcium 8.3 L Magnesium 1.8 Active Medications Aspirin (Aspirin) 81 mg PO DAILY SHANTAL Stop: 05/25/18 09:01 Last Admin: 11/25/17 07:57 Dose: 81 mg Atorvastatin Calcium (Lipitor) 80 mg PO HS SHANTAL Stop: 05/24/18 21:01 Last Admin: 11/24/17 20:51 Dose: 80 mg Sodium Chloride (0.9 % Sodium Chloride) 1,000 mls @ 75 mls/hr IVC .[id number] PENDING SALE TO [facility] Stop: 05/24/18 11:31 Last Admin: 11/25/17 07:57 Dose: Not Given Isosorbide Mononitrate (Imdur) 90 mg PO DAILY SHANTAL Stop: 05/27/18 09:01 Metoprolol Tartrate (Lopressor) 25 mg PO BID PENDING SALE TO [facility] Stop: 05/25/18 21:01 Last Admin: 11/25/17 07:57 Dose: 25 mg Naloxone HCl (Narcan) 0.4 mg IVP Q2MIN PRN PRN Reason: SEE COMMENTS Stop: 05/24/18 09:37 Ranolazine (Ranexa) 500 mg PO BID SHANTAL Stop: 05/24/18 21:01 Last Admin: 11/25/17 07:58 Dose: 500 mg Ticagrelor (Brilinta) 90 mg PO BID PENDING SALE TO [facility] Stop: 05/25/18 14:01 Last Admin: 11/25/17 07:58 Dose: 90 mg - Imaging and Cardiology Echo: report reviewed Cardiac cath: report reviewed Other Results: 12 hour tele: avg HR=68 SR. No events noted. - EKG Interpretation EKG results cardiology: personally reviewed Consult Discharge Plan - Plan Instructions: Myocardial Infarction (DC) Referrals: Yohan Mejía DO [Primary Care Provider] - 11/28/17 10:00 am (Please follow up as schedule...) Gaston Patricio DO [Partnered Physician] - (2 weeks Stefani from the cardio office will call patient for an appt.) Prescriptions: Metoprolol [Lopressor] 25 mg PO BID #60 tablet
--- NOTE | 2017-11-28 09:11 | Electrocardiograph Report ---
[address] [place] [address] Test Date: 2017-11-22 Pat Name: Lizeth Lara Department: 102 Room: 2A26 Gender: F Animal Biologist: : 1960 Requested By: Renu Almanza Order Number: [id number] Reading MD: Jeremías Miranda Measurements Intervals [place] Rate: 62 P: 61 W[place]: 178 QRS: 8 QRSD: 109 T: 0 QT: 408 QTc: 414 Interpretive Statements SINUS RHYTHM POSSIBLE INFERIOR MYOCARDIAL INFARCTION, PROBABLY OLD Electronically Signed On 11-28-2017 9:09:48 EDT by Jeremías Miranda
--- NOTE | 2017-11-28 12:04 | Electrocardiograph Report ---
[address] [place] [address] Test Date: 2017-11-23 Pat Name: Lizeth Lara Department: 112 Room: 2A26 Gender: F Outside Deliverer: : 1960 Requested By: [id number] Order Number: [id number] Reading MD: Jeremías Miranda Measurements Intervals [place] Rate: 64 P: 33 TN: 130 QRS: 7 QRSD: 109 T: -29 QT: 424 QTc: 433 Interpretive Statements SINUS RHYTHM POSSIBLE INFERIOR MYOCARDIAL INFARCTION, OF INDETERMINATE AGE Electronically Signed On 11-28-2017 12:03:09 EDT by Jeremías Miranda
--- NOTE | 2017-11-28 12:16 | Electrocardiograph Report ---
[address] [place], [place] [address] Test Date: 2017-11-23 Pat Name: Lizeth Lara Department: 112 Room: 2A26 Gender: F Cafe Aide: : 1960 Requested By: [id number] Order Number: [id number] Reading MD: Jeremías Miranda Measurements Intervals [place] Rate: 80 P: 127 [place]: 155 QRS: 176 QRSD: 106 T: 199 QT: 405 QTc: 441 Interpretive Statements SINUS RHYTHM LIMB LEAD REVERSAL POSSIBLE INFERIOR MYOCARDIAL INFARCTION, AGE UNDETERMINED RECOMMEND REPEAT ECG Electronically Signed On 11-28-2017 12:14:40 EDT by Jeremías Miranda
== END 2017-11-25 09:49 | disposition home or self-care (01) | DRG 251 ==
LOC: EMEROO 06:54 → 2ANU 06:54
PROVIDERS: ADMIT Internal Medicine; ATTEND Internal Medicine

== ENCOUNTER 2020-10-27 09:27 | Inpatient (IN) ==
[2020-10-27] MEDS ORDERED: cefTRIAXone 1,000 MG in Water for inj. (sterile) 10 ML IVP ONE (09:40)
[2020-10-27] MEDS ORDERED: Isovue-370 500 ML BOTTLE IVP ONE (09:42)
[2020-10-27] MEDS ORDERED: 0.9 % Sodium Chloride 2,000 ML ONE (09:52)
[2020-10-27] MEDS: 0.9 % Sodium Chloride 1,000 ML IVC SCH ×2 (09:57→12:03)
[2020-10-27 10:24] LABS: Hemoglobin 10.7 g/dL (11.5-15.4); Mean Corpuscular HGB Conc 31.5 g/dL (31.6-35.5); Mean Corpuscular Hemoglobin 29.5 pg (28.0-33.3); Mean Corpuscular Volume 93.7 fL (83.0-100.0); Mean Platelet Volume 10.6 fL (9.4-12.4); Nucleated Red Blood Cells 0.6 /100 WBC (0); Platelet Count 420 K/mcL (140-400); Red Blood Count 3.63 M/mcL (3.82-4.97); Red Cell Distribution Width 17.2 % (11.5-14.5); White Blood Count 7.2 K/mcL (4.3-11.1)
[2020-10-27 10:32] LABS: VBG HCO3 16 mEq/L (21-27); VBG PCO2 27 mmHg (41-51); VBG PH 7.38 pH Units (7.32-7.42); VBG PO2 62 mmHg (25-50)
[2020-10-27 10:32] LABS: INR 1.5; Prothrombin Time 17.4 Seconds (9.4-12.1)
[2020-10-27 10:34] LABS: Activated Partial Thrombo Time 29.5 Seconds (26.0-36.0)
[2020-10-27 10:56] LABS: Albumin 3.2 g/dL (3.5-5.7); Albumin/Globulin Ratio 0.7 (1.1-2.2); Bilirubin,Direct 0.3 mg/dL (0.0-0.2); Bilirubin,Indirect 0.6 mg/dL (0.0-1.0); Bilirubin,Total 0.9 mg/dL (0.3-1.0); Calcium 8.8 mg/dL (8.6-10.3); Globulin 4.6 g/dL (2.4-3.5); Magnesium 1.2 mg/dL (1.6-2.6); Phosphorous 2.9 mg/dL (2.7-4.5); Potassium 2.5 mEq/L (3.5-5.1); Thyroid Stimulating Hormone 2.135 mcIU/mL (0.340-5.600); Total Protein 7.8 g/dL (6.4-8.9); Troponin I 0.08 ng/mL (< 0.04)
[2020-10-27] MEDS ORDERED: Aspirin 81 MG TAB.CHEW PO ONE (11:02)
[2020-10-27] MEDS ORDERED: Magnesium Sulfate 1 GM/102 ML PIGGYBACK IVPB ONE (11:18)
[2020-10-27 11:25] LABS: Amorphous Sediment,Urine Few per hpf (None-Few); Bacteria,Urine Few per hpf (None-Few); Bilirubin,Urine Negative (Negative); Blood,Urine Trace (Negative); Clarity,Urine Turbid (Clear); Color,Urine Yellow (Yellow); Glucose,Urine (UA) Normal (Normal); Granular Casts,Urine Moderate per lpf (None Seen); Hyaline Casts,Urine Few per lpf (None Seen); Ketones,Urine Negative (Negative); Leukocyte Esterase,Urine Negative (Negative); Mucus,Urine Few per lpf (None-Few); Nitrite,Urine Negative (Negative); PH,Urine 5.5 pH Units (5.0-8.0); Protein,Urine 100 mg/dL (Neg-Trace); RBC,Urine 0-3 per hpf (0-3); Renal Epithelial Cells,Urine Few per hpf (None-Few); Specific Gravity,Urine 1.017 (1.010-1.025); Squamous Epithelial Cell,Urine Few per hpf (None-Few); Transitional Epi Cells,Urine Few per hpf (None-Few); Urobilinogen,Urine Normal (Normal); White Blood Cell Casts,Urine Few per lpf (None Seen)
[2020-10-27 11:39] LABS: Lymphocytes # 0.4 K/mcL (0.6-4.6); Monocytes # 0.1 K/mcL (0.0-1.3); Neutrophils # 5.5 K/mcL (1.6-8.9)
[2020-10-27 11:40] LABS: Anisocytosis 1+ (Not Present); Toxic Granulation Present (Not Present)
[2020-10-27 11:41] LABS: Poikilocytosis 1+ (Not Present); Polychromasia 1+ (Not Present)
[2020-10-27] MEDS ORDERED: Azithromycin 500 MG in 0.9 % Sodium Chloride 250 ML IVPB ONE (12:38)
[2020-10-27] MEDS ORDERED: 0.9 % Sodium Chloride 1,000 ML IVC ONE (12:55)
[2020-10-27] MEDS ORDERED: Naloxone 0.4 MG/ML INJ IVP PRN ×2 (14:17→21:40)
[2020-10-27] MEDS ORDERED: Ipratropium/Albuterol Neb 3 ML IH PRN (14:20)
[2020-10-27] MEDS ORDERED: Phenylephrine 10 MG in 0.9 % Sodium Chloride 250 ML IVC SCH (14:51)
[2020-10-27] MEDS ORDERED: Dexmedetomidine HCl 400 MCG/100 ML MLS IVC SCH (14:52)
[2020-10-27] MEDS ORDERED: *HR* Phenylephrine 10 MG/ML VIAL ONE (14:56)
[2020-10-27] MEDS ORDERED: 0.9 % Sodium Chloride 250 ML ONE ×2 (14:56→16:35)
[2020-10-27] MEDS ORDERED: Piperacillin/Tazobactam 3.375 GM in 0.9 % Sodium Chloride Mini Bag 100 ML IVPB SCH (15:00)
[2020-10-27] MEDS ORDERED: *HR* EPINEPHrine 100 MCG/10 ML SYRINGE IVP ONE (15:24)
[2020-10-27] MEDS ORDERED: Piperacillin/Tazobactam 3.375 GM in Water for inj. (sterile) 20 ML IVP ONE (16:01)
[2020-10-27 16:02] LABS: Mixed Venous Blood pCO2 59 mmHg (44-46); Mixed Venous Blood pH 6.82 pH Units (7.34-7.36); Mixed Venous Blood pO2 40 mmHg (35-45)
[2020-10-27] MEDS ORDERED: Sodium Bicarbonate 50 MEQ in 0.45 % Sodium Chloride 1,000 ML IVC SCH (16:15)
[2020-10-27] MEDS ORDERED: *HR* Norepinephrine 4 MG/4 ML VIAL IVC ONE (16:35)
[2020-10-27] MEDS ORDERED: Norepinephrine 4 MG/254 ML IV.SOLN IVC SCH (16:36)
[2020-10-27] MEDS ORDERED: Hydrocortisone Sodium Succ 100 MG/2 ML VIAL IVP STA (17:09)
[2020-10-27] MEDS ORDERED: Vasopressin 40 UNIT in D5% in Water 100 ML IVC SCH (17:15)
[2020-10-27] MEDS: *HR* Dextrose 50 % in Water (Vial) 50 ML VIAL ONE ×2 (18:00→18:36)
[2020-10-27] MEDS: Phenylephrine 10 MG in 0.9 % Sodium Chloride 250 ML IVC SCH ×2 (18:25→18:30)
[2020-10-27] MEDS ORDERED: *HR* Dextrose 50 % in Water (Vial) 50 ML VIAL ONE (18:26)
[2020-10-27 18:46] VITALS: BP 52/13
[2020-10-27] MEDS ORDERED: Artificial Tears SOLN 15 ML BOTTLE BOTH EYES PRN (21:40)
[2020-10-27] MEDS ORDERED: FentaNYL (PF) 1,000 MCG/100 ML IV.SOLN IVC SCH (21:45)
[2020-10-27] MEDS ORDERED: Pantoprazole 40 MG VIAL IVP SCH (21:45)
[2020-10-27] MEDS ORDERED: Chlorhexidine Rinse 15 ML MOUTHWASH MM SCH (21:45)
[2020-10-28] MEDS ORDERED: Artificial Tears SOLN 15 ML BOTTLE BOTH EYES SCH
== END 2020-10-27 20:50 | disposition expired | DRG 871 ==
LOC: 2NENU 09:27 → EMEROOARM 09:27 → ICNU 15:46
PROVIDERS: ADMIT Internal Medicine; ATTEND Family Medicine